=== PATIENT | female | born 1965 | race Caucasian/White ===

== ENCOUNTER 2022-01-15 11:59 | Outpatient (CLI) | payer BC, SELFPAY | END 2022-01-15 12:00 | disposition home or self-care (01) | PROVIDERS: PCP Internal Medicine; Visit Provider Obstetrics & Gynecology | DX: R68.89 Other general symptoms and signs (principal); N95.1 Menopausal and female climacteric states; I10 Essential (primary) hypertension; E78.5 Hyperlipidemia, unspecified | CPT/HCPCS: 36415; 84443 ==

== ENCOUNTER 2022-01-30 09:08 | Outpatient (CLI) | payer BC, SELFPAY ==
--- NOTE | 2022-01-30 09:15 | CRLHL7_ITS ---
For Patients: As a result of the Century Cures Act, medical imaging exams and procedure reports are released immediately into your electronic medical record. You may view this report before your referring provider. If you have questions, please contact your health care provider. BILATERAL SCREENING MAMMOGRAM WITH COMPUTER-AIDED DETECTION AND TOMOSYNTHESIS TECHNIQUE: CC and MLO views were obtained. These mammographic images have been obtained using full-field digital technique. These mammographic images were interpreted with the benefit of computer-aided detection. Breast Tomosynthesis was used in this interpretation. COMPARISON FILM: 12/30/20, 12/30/19, 07/21/18. FINDINGS: The breasts are heterogeneously dense, which may obscure small masses IMPRESSION: There is no radiographic evidence for malignancy. ASSESSMENT: BI-RADS Category 2: Benign RECOMMENDATION: Routine screening mammogram in 1 year. A lay language report of this examination will be provided to the patient. Roderick Boothe M.D. Diagnostic Radiologist [email or web address] FRANCO/Dictated by: Roderick Boothe MD @ 01/30/2022 10:21:00 AM (Electronically Signed)
== END 2022-01-30 09:09 | disposition home or self-care (01) ==
LOC: MAMMO 09:09
PROVIDERS: PCP Internal Medicine; Visit Provider Internal Medicine
DX: Z12.31 Encounter for screening mammogram for malignant neoplasm of breast (principal); R92.2 Inconclusive mammogram
CPT/HCPCS: 77063; 77067

== ENCOUNTER 2022-03-26 06:04 | Day surgery (SDC) | payer BC, SELFPAY ==
[2022-03-26] MEDS: LACTATED RINGERS 1000 ML 1,000 ML 100 ML IV (06:30)
[2022-03-26 06:38] VITALS: BMI 40.4
[2022-03-26 06:43] VITALS: BP 151/100; PULSE 58; RESP 16; TEMP 36.7; O2SAT 98
[2022-03-26] MEDS: SODIUM CHLORIDE 0.9 % (FLUSH) 10 ML SYRINGE IVF (06:54)
--- NOTE | 2022-03-26 07:19 | CRLHL7_ITS ---
For Patients: As a result of the Cures Act, medical imaging exams and procedure reports are released immediately into your electronic medical record. You may view this report before your referring provider. If you have questions, please contact your health care provider. Indication: HAMMERTOE REPAIR Technique: Two fluoroscopic images of the left foot. Fluoroscopic time 4.8 seconds IMPRESSION: Fluoroscopic guidance for 3rd toe hammertoe repair. Dictated by Roderick Boothe MD @ 03/26/2022 8:54:22 AM (Electronically Signed)
[2022-03-26] MEDS: CEFAZOLIN 1 GM in 0.9 % SODIUM CHLORIDE Mini-bag 100 ML IVPB (07:22)
[2022-03-26] MEDS: BUPIVACAINE 0.5% 30 ML INJECTION (07:32)
[2022-03-26 08:12] VITALS: BP 139/81; PULSE 73; RESP 16; TEMP 36.4; O2SAT 95
--- NOTE | 2022-03-26 08:17 | P.GSOP_ITS ---
Operative Note Date of procedure: 03/26/22 Type of Procedure: Hammertoe correction by PIPJ fusion 3rd toe left, percutaneous flexor tenotomy bilateral 4th toes Procedure Description: After discussing the risks and benefits of the procedure, the patient signed informed consent.? The operative site was marked and the patient was brought to the operating room and placed on the operating table in supine position.? Care was taken to pad the patient's pressure points.?? The patient was then given sedation by anesthesia and local anesthetic was injected into the 3rd and 4th toes left and the 4th toe right.?? The operative site was then prepped and draped in the usual sterile fashion.? A time-out was then performed. The left foot was exsanguinated and the ankle tourniquet inflated to 250 mm Hg. Transverse incision was then made over the dorsal distal interphalangeal joint 3rd toe left foot. Incision was carried through skin. Joint capsule and extensor tendon were transected at the level of the joint. Medial lateral collateral ligaments released. The cartilage and subchondral bone of the distal middle phalanx was resected with a oscillating saw and the base of the distal phalanx resected with oscillating saw. Flexor tendon was released. Wound was t horoughly irrigated with normal sterile saline. 0.054 smooth K-wire was placed in the base of the distal phalanx and driven out through the tip of the toe. Fusion site was held tightly together the pin was retrogradely placed into the middle and proximal phalanx. C-arm confirmed excellent position. K-wire was bent cut and capped with a Jergens ball. Extensor tendon subcutaneous tissue and skin were all repaired in 1 layer with 4-0 Prolene. 6100 for [place] blade was used to make a stab incision the plantar aspect of the PIPJ 4th toe left foot. Flexor tendon and plantar joint capsule released. Single 4-0 Prolene suture placed. Sterile dressings were then applied. Tourniquet was released. Normal capillary fill time returned to all digits. 6100 [place] blade was used to make stab incision to the plantar aspect the PIPJ 4th toe right. Flexor tendon and plantar joint capsule released. Single 4-0 Prolene suture placed. Sterile dressings were then applied. ? The patient was then woken and transported to the recovery area in stable condition. The patient tolerated the procedure well. She will be discharged per Anesthesia. She is given both written and verbal postoperative i nstructions. She is weight-bearing as tolerated in a postsurgical shoes. She is given Brandon for pain. She will follow-up in 2 days time. Findings: Complications: None apparent Implants: 0.054 smooth K-wire x1 Anesthesia: MAC and local Surgeon: Aj Milian DPM Estimated blood loss (mL): 1 Condition: stable Disposition: same day
--- NOTE | 2022-03-26 08:19 | W.ANESCHARGE ---
Anesthesia Charges Start Date/Time Anesthesia Start Date: 03/26/22 Anesthesia Start Time: 07:15 Stop Date/Time Anesthesia Stop Date: 03/26/22 Anesthesia Stop Time: 08:15 Summary Emergency: No
[2022-03-26 08:20] VITALS: BP 140/80; PULSE 73; RESP 16; O2SAT 95
[2022-03-26 08:30] VITALS: BP 133/80; PULSE 73; RESP 16; O2SAT 95
[2022-03-26 08:45] VITALS: BP 145/76; PULSE 73; RESP 16; O2SAT 95
--- NOTE | 2022-03-26 09:32 | W.ANESCHARGE ---
Anesthesia Charges Start Date/Time Anesthesia Start Date: 03/26/22 Anesthesia Start Time: 07:15 Stop Date/Time Anesthesia Stop Date: 03/26/22 Anesthesia Stop Time: 08:15 Summary Emergency: No
--- NOTE | 2022-03-26 11:34 | SUR.PHASEII ---
bilateral black hard sole shoes applied to feet.
== END 2022-03-26 09:00 | disposition home or self-care (01) ==
PROVIDERS: PCP Internal Medicine; Visit Provider Podiatrist
PROC: (CPT 28285; principal; 2022-03-26 07:15)
DX: M20.42 Other hammer toe(s) (acquired), left foot (principal)
CPT/HCPCS: 28285 ×3; 01480; 73630; 76000; J0690; J2250; J2704; J3010; J3490; J7120

== ENCOUNTER 2022-05-02 16:39 | Outpatient (CLI) | payer BC, SELFPAY ==
[2022-05-02 10:22] LABS: Albumin* 4.4 g/dL (3.3-5.0); Chloride* 105 mmol/L (96-114)
[2022-05-02 10:23] LABS: Potassium* 4.2 mmol/L (3.6-5.1); Sodium* 140 mmol/L (135-149)
[2022-05-02 10:25] LABS: Carbon Dioxide* 31 mmol/L (20-32); Cholesterol* 241 mg/dL (90-199); Creatinine* 0.7 mg/dL (0.5-1.5); Estimated Glomerular Filt Rate 100 ml/min; Total Protein* 7.1 g/dL (6.0-8.3)
[2022-05-02 10:26] LABS: Alanine Aminotransferase* 18 U/L (4-35); Alkaline Phosphatase* 109 U/L (40-150); Aspartate Amino Transferase* 19 U/L (12-35); Bilirubin Total* 0.5 mg/dL (0.1-1.5); Blood Urea Nitrogen* 20 mg/dL (7-30); Calcium* 9.1 mg/dL (8.4-10.6); Glucose* 99 mg/dL (60-115); Triglycerides* 210 mg/dL (40-149)
[2022-05-02 10:27] LABS: HDL Cholesterol* 60 mg/dL (>=50); LDL Cholesterol Calculated 139 mg/dL (<100)
[2022-05-02 10:36] LABS: Vitamin D 25 Hydroxy* 17 ng/mL (30-80)
== END 2022-05-02 16:40 | disposition home or self-care (01) ==
PROVIDERS: PCP Internal Medicine; Visit Provider Internal Medicine
DX: R73.03 Prediabetes (principal); E78.5 Hyperlipidemia, unspecified
CPT/HCPCS: 80053; 80061; 82306; 82728

== ENCOUNTER 2023-04-26 15:22 | Outpatient (CLI) | payer BC, SELFPAY ==
--- NOTE | 2023-04-26 15:20 | CRLHL7_ITS ---
For Patients: As a result of the Century Cures Act, medical imaging exams and procedure reports are released immediately into your electronic medical record. You may view this report before your referring provider. If you have questions, please contact your health care provider. BILATERAL SCREENING MAMMOGRAM WITH COMPUTER-AIDED DETECTION AND TOMOSYNTHESIS TECHNIQUE: CC and MLO views were obtained. These mammographic images have been obtained using full-field digital technique. These mammographic images were interpreted with the benefit of computer-aided detection. Breast Tomosynthesis was used in this interpretation. COMPARISON FILM: 01/30/22, 12/30/20, 12/30/19. FINDINGS: There are scattered areas of fibroglandular density IMPRESSION: There is no radiographic evidence for malignancy. ASSESSMENT: BI-RADS Category 2: Benign RECOMMENDATION: Routine screening mammogram in 1 year. A lay language report of this examination will be provided to the patient. Tony Forrest M.D. Diagnostic/Nuclear Medicine Radiologist [email or web address] FRANCO/Dictated by: Tony Forrest MD @ 04/30/2023 8:31:00 AM (Electronically Signed)
== END 2023-04-26 15:23 | disposition home or self-care (01) ==
LOC: MAMMO 15:25
PROVIDERS: PCP Internal Medicine; Visit Provider Internal Medicine
DX: Z12.31 Encounter for screening mammogram for malignant neoplasm of breast (principal)
CPT/HCPCS: 77063; 77067

== ENCOUNTER 2023-08-15 08:23 | Outpatient (CLI) | payer BC, SELFPAY ==
--- OUTSIDE RECORDS SUMMARY | 2023-08-15 08:26 | XMS_ITS | Clinical Summary ---
Author Name Unknown Organization [facility] Address [address] [place] [address] Care Team Providers Care Security Infrastructure Engineer Name Role Phone Cristal Dubose MD Primary Care Provider Kiel Miles PhD Unavailable [phone] Jose Alejandro Dave PA-C Unavailable [phone] Allergies Active Allergy Reactions Criticality Noted Date Comments Aspirin 10/16/2022 S/p gastric surgery 10/11/2022 Morphine Nausea Low 08/10/2020 Nsaids 10/16/2022 S/p gastric surgery 10/11/2022 Penicillins Rash Low 10/13/2018 Skin turns pink Medications Medication Sig Dispensed Refills Start Date End Date Status lisinopril-hydrochloro thiazide (PRINZIDE/ZESTORETIC) 20-12.5 MG tablet Take 1 tablet by mouth every morning 2 Active venlafaxine (EFFEXOR-XR) 150 MG 24 hr capsule Take 1 capsule by mouth every morning 0 Active FLUoxetine (PROZAC) 20 MG capsule Take 1 capsule by mouth every morning Active VITAMIN D PO Take 2,000 Int'l Units by mouth daily Active Multiple Vitamin (MULTIVITAMIN ADULT PO) Take 1 tablet by mouth every morning Active sennosides (SENOKOT) 8.6 MG tablet Take 1 tablet by mouth 2 times daily Active Cyanocobalamin (VITAMIN B12) 3000 MCG/ML LIQD Place under the tongue once a week 1/2 of a stopper Active Active Problems Problem Noted Date Diagnosed Date Class 1 obesity due to exces s calories with serious comorbidity and body mass index (BMI) of 30.0 to 30.9 in adult 02/18/2023 Last Assessment & Plan: Patient was congratulated on wt loss success thus far. Healthy habits to assist with further weight loss were discussed. 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 Labs ordered per protocol. Prediabetes 10/13/2018 Last Assessment & Plan: Last HgA1C 2018 5.6. Recheck HgA1C at 1 year. Essential hypertension 10/13/2018 Last Assessment & Plan: Continue of lisinopril/hydrochlorothiazide will see PCP who prerna discontinue. BP controlled. Premature menopause 10/13/2018 Family History Medical History Relation Comments Coronary Artery Disease Brother Obesity Brother Obesity Father Obesity Mother Relation Status Comments Brother Father Mother Social History Tobacco Use Types Packs/Day Years Used Date Smoking Tobacco: Never Smokeless Tobacco: Never Tobacco Cessation:Counseling Given: Not Answered Alcohol Use Standard Drinks/Week Comments Yes 0 (1 standard drink = 0.6 oz pur e alcohol) occassional Adolescent Education Answer Date Record ed Getting School Help Needed Not on file 01/18 Sex and Gender Information Value Date Recorded Sex Assigned at Female 04/21/2022 8:20 PM SHIP CAPTAIN Gender Identity Female 04/21/2022 8:20 PM SHIP CAPTAIN Sexual Orientation Straight 04/21/2022 8: 20 PM SHIP CAPTAIN Last Filed Vital Signs Vital Sign Reading Time Taken Comments Blood Pressure 118/76 05/07/2023 8:40 AM SHIP CAPTAIN Pulse 56 05/07/2023 8:40 AM SHIP CAPTAIN Temperature 36.8 ??C (98.2 ??F) 10/25/2022 11:50 AM C DT Respiratory Rate 16 10/25/2022 11:50 AM CDT Oxygen Saturation 100% 05/07/2023 8:40 AM SHIP CAPTAIN Inhaled Oxygen Concentration - - Weight 103.4 kg (228 lb) 05/07/2023 8:40 AM SHIP CAPTAIN Height 185.4 cm (6' 1) 05/07/2023 8:40 AM SHIP CAPTAIN Body Mass Index 30.08 05/07/2023 8:40 AM SHIP CAPTAIN Plan of Treatment Upcoming Encounters Date Type Department Care Team (Late st Contact Info) Description 10/09/2023 9:00 AM CDT Office Visit [facility] [place] [address] [place] [phone] Jose Alejandro Dave PA-C [address] [place] [id number] 10/09/2023 9:30 AM CDT Office Visit [facility] [place] [address] [place] [phone] 1, Sh Wl Diet, RD Health Maintenance Due Date Last Done Comments ADVANCE CARE PLANNING 1965 ANNUAL REVIEW OF HM ORDERS 1963 CT COLONOGRAPHY 1963 FIT 1965 FLEX SIG 1965 MAMMO SCREENING 1965 YEARLY PREVENTIVE VISIT 1963 sDNA (Cologuard) 1965 COLONOSCOPY 11/11/1973 COLORECTAL CANCER SCREENING 11/11/1973 HIV SCREENING 11/11/1978 HEPATITIS C SCREENING 11/11/1981 HEPATITIS B IMMUNIZATION (1 of 3 - 19+ 3-dose series) 11/11/1982 PAP 11/11/1984 PHQ-2 (once per calendar year) 2023 LIPID 09/17/2023 09/16/2018 GLUCOSE 10/12/2025 10/12/2022, 09/21, 09/16/2018 DTAP/TDAP/TD IMMUNIZATION (4 - Td or Tdap) 11/01/2026 11/01/2016, 01/01/2016, 07/03/2006, Additional history exists Pneumococcal Vaccine: Pediatrics (0 to 5 Years) and At-Risk Patients (6 to 64 Years) Aged Out 11/28/2017 No longer eligible based on patient's age to complete this topic ZOSTER IMMUNIZATION Completed 08/19/2018, 8 INFLUENZA VACCINE Completed 02/20/2023, , 01/26/2022, Additional history exists COVID-19 Vaccine Completed 04/25/2023, , 03/07/2021, Additional history exists HPV IMMUNIZATION Aged Out No longer e ligible based on patient's age to complete this topic IPV IMMUNIZATION Aged Out No longer e ligible based on patient's age to complete this topic MENINGITIS IMMUNIZATION Aged Out No l onger eligible based on patient's age to complete this topic RSV MONOCLONAL ANTIBODY Aged Out No l onger eligible based on patient's age to complete this topic Procedures Procedure Name Priority Date/Time Associated Diagnosis Comments GLUCOSE Routine 10/12/2022 7:31 AM CDT LIPID PROFILE Routine 09/16/2018 from Last 3 Months or Most Recently Relevant to Health Maintenance Results * Glucose (10/12/2022 7:31 AM CDT) Glucose 99 70 - 99 mg/dL 10/12/2022 8:17 AM CDT LABORATORY Blood STRUCTURE OF RIGHT UPPER LIMB / Unknown Venipuncture / Unknown 10/12/2022 7:31 AM CDT 10/12/2022 7:45 AM CDT Kris Vail MD LAB - BLOOD ORDERABL ES LABORATORY [facility] Acute Care Lab [address] floor, [address] [place] [address], [facility] [phone] * (ABNORMAL) Lipid Profile (09/16/2018) Cholesterol 259(A) 90 - 200 MG/DL [facility] Triglycerides 167 40 - 197 MG/DL [facility] HDL Cholesterol 68 >=50 mg/dL [facility] LDL Cholesterol Calculated 158(H) <100 mg/dL [facility] Blood specimen (specimen) 09/16/2018 Narrative [facility] - 09/16/2018 LAB RESULTS [place] Provider Outside LAB - BLOOD ORDERABL ES [facility] [address] [place] [address], [facility] [phone] from Last 3 Months or Most Recently Relevant to Health Maintenance Advance Directives For more information, please contact: [phone] * Full Code (Latest Code Status on File) Date Activated Date Inactivated Comments 10/11/2022 11:26 AM 10/12/2022 1:34 PM All basic a nd advanced life-sustaining interventions are performed as appropriate Question Answer Comments Code status determined by: Unable to dis cuss and no AD/POLST on file; continue PREVIOUSLY ORDERED code status Care Teams Security Infrastructure Engineer Relationship Specialty Start Date End Date Cristal Dubose MD [facility][NOTE 3] [address] [place] [address] PCP - General Internal Medicine 10/13/18 Kiel Miles, PhD [employer] [address] [place] [address] Assigned Behavioral Health Provider 05/19/22 Jose Alejandro Dave PA-C [address] [place] [address] Assigned Surgical Provider 05/16/23
--- OUTSIDE RECORDS SUMMARY | 2023-08-15 08:26 | XMS_ITS | Referral Summary ---
Author Name Unknown Organization [facility] Address [address] [place] [address] Care Team Providers Care Satellite Dish Installer Name Role Phone Cristal Dubose MD Primary Care Provider Kiel Miles PhD Unavailable [phone] Jose Alejandro Dave PA-C Unavailable [phone] Allergies Active Allergy Reactions Criticality Noted Date [...] prerna discontinue. BP controlled. Premature menopause 10/13/2018 Social History Tobacco Use Types Packs/Day Years [...] Sex Assigned at Female 04/21/2022 8:20 PM POWER PROJECT MANAGER Gender Identity Female 04/21/2022 8:20 PM POWER PROJECT MANAGER Sexual Orientation Straight 04/21/2022 8: 20 PM POWER PROJECT MANAGER Last Filed Vital Signs Vital Sign Reading Time Taken Comments Blood Pressure 118/76 05/07/2023 8:40 AM POWER PROJECT MANAGER Pulse 56 05/07/2023 8:40 AM POWER PROJECT MANAGER Temperature 36.8 ??C (98.2 ??F) 10/25/2022 11:50 AM C DT Respiratory Rate 16 10/25/2022 11:50 AM CDT Oxygen Saturation 100% 05/07/2023 8:40 AM POWER PROJECT MANAGER Inhaled Oxygen Concentration - - Weight 103.4 kg (228 lb) 05/07/2023 8:40 AM POWER PROJECT MANAGER Height 185.4 cm (6' 1) 05/07/2023 8:40 AM POWER PROJECT MANAGER Body Mass Index 30.08 05/07/2023 8:40 AM POWER PROJECT MANAGER Plan of Treatment Upcoming Encounters Date Type Department Care Team (Late st Contact Info) Description 10/09/2023 9:00 AM CDT Office Visit [facility] [place] [address] [place] [phone] Jose Alejandro Dave PA-C [address] [place] [address] 10/09/2023 9:30 AM CDT Office Visit [facility] [place] [address] [place] [phone] 1, Sh Wl Diet, RD Procedures Procedure Name Priority Date/Time Associated Diagnosis [...] MD LAB - BLOOD ORDERABL ES LABORATORY [facility] Acute Care Lab [address] [place] floor, [address] [place] [phone], [facility] [phone] * (ABNORMAL) Lipid Profile (09/16/2018) Cholesterol 259(A) 90 - 200 MG/DL [facility] Triglycerides 167 40 - 197 MG/DL [facility] HDL Cholesterol 68 >=50 mg/dL [facility] LDL Cholesterol Calculated 158(H) <100 mg/dL [facility] Blood specimen (specimen) 09/16/2018 Narrative [facility] - 09/16/2018 LAB RESULTS [place] Provider Outside LAB - BLOOD ORDERABL ES [facility] [address] [place] [address], [facility] [phone] from Last 3 Months or Most Recently Relevant to Health Maintenance Advance Directives For more information, please contact: [phone] * Full Code (Latest Code Status on File) Date Activated Date Inactivated Comments 10/11/2022 11:26 AM 10/12/2022 1:34 PM All basic a nd advanced life-sustaining interventions are performed as appropriate Question Answer Comments Code status determined by: Unable to dis cuss and no AD/POLST on file; continue PREVIOUSLY ORDERED code status Care Teams Satellite Dish Installer Relationship Specialty Start Date End Date Cristal Dubose MD [facility] [address] [place] [address] PCP - General Internal Medicine 10/13/18 Kiel Miles, PhD [employer] [facility] [address] [place] [address] Assigned Behavioral Health Provider 05/19/22 Jose Alejandro Dave PA-C [address] [place] [address] Assigned Surgical Provider 05/16/23
--- OUTSIDE RECORDS SUMMARY | 2023-08-15 08:26 | XMS_ITS | Encounter Summary ---
Author Name Unknown Organization [facility] Address [id number] [place] [address] Care Team Providers Care Director Critical Care Name Role Phone Cristal Dubose MD Primary Care Provider [phone] Kiel Miles PhD Unavailable [phone] Christie Kelly PA-C Unavailable [phone] Encounter Details Date Type Department Care Team (Late st Contact Info) Description 05/07/2023 4:20 PM SOCIAL SECURITY BENEFITS INTERVIEWER Lab [facility] [address] [facility] [place] [phone] Bariatric surgery status; Postsurgical malabsorption Social History Tobacco Use Types Packs/Day Years Used Date Smoking Tobacco: Never Smokeless Tobacco: Never Alcohol Use Standard Drinks/Week Comments Yes 0 (1 standard drink = 0.6 oz pur e alcohol) occassional Adolescent Education Answer Date Record ed Getting School Help Needed Not on file 01/18 Sex and Gender Information Value Date Recorded Sex Assigned at Female 04/21/2022 8:20 PM SOCIAL SECURITY BENEFITS INTERVIEWER Gender Identity Female 04/21/2022 8:20 PM SOCIAL SECURITY BENEFITS INTERVIEWER Sexual Orientation Straight 04/21/2022 8: 20 PM SOCIAL SECURITY BENEFITS INTERVIEWER documented as of this encounter Plan of Treatment Upcoming Encounters Date Type Department Care Team (Late st Contact Info) Description 10/09/2023 9:00 AM CDT Office Visit [facility] [place] [address] [place] [phone] Jose Alejandro Dave PA-C [address] [facility] [place] [address] 10/09/2023 9:30 AM CDT Office Visit [facility] [place] [address] [place] [phone] 1, Sh Wl Diet, RD documented as of this encounter Procedures Procedure Name Priority Date/Time Associated Diagnosis Comments VITAMIN D DEFICIENCY SCREENING Routine 05/07/2023 3:03 PM SOCIAL SECURITY BENEFITS INTERVIEWER Bariatric surgery status Postsurgical malabsorption VITAMIN A Routine 05/07/2023 3:03 PM SOCIAL SECURITY BENEFITS INTERVIEWER Postsurgical malabsorption PARATHYROID HORMONE INTACT Routine 05/07/2023 3:03 PM SOCIAL SECURITY BENEFITS INTERVIEWER Bariatric surgery status Postsurgical malabsorption IRON AND IRON BINDING CAPACITY Routine 05/07/2023 3:03 PM SOCIAL SECURITY BENEFITS INTERVIEWER Bariatric surgery status Postsurgical malabsorption FERRITIN Routine 05/07/2023 3:03 PM SOCIAL SECURITY BENEFITS INTERVIEWER Bariatric surgery status Postsurgical malabsorption VITAMIN B12 Routine 05/07/2023 3:03 PM SOCIAL SECURITY BENEFITS INTERVIEWER Bariatric surgery status Postsurgical malabsorption CBC WITH PLATELETS Routine 05/07/2023 3: 03 PM SOCIAL SECURITY BENEFITS INTERVIEWER Bariatric surgery status Postsurgical malabsorption documented in this encounter Results * Vitamin A (05/07/2023 3:03 PM SOCIAL SECURITY BENEFITS INTERVIEWER) Vitamin A 0.70 0.30 - 1.20 mg/L 05/10/2023 9:13 AM SOCIAL SECURITY BENEFITS INTERVIEWER [facility] Retinol Palmitate 0.04 0.00 - 0.10 mg/L 05/10/2023 9:13 AM SOCIAL SECURITY BENEFITS INTERVIEWER [facility] Vitamin A Interp Normal 05/10/19 24 9:13 AM SOCIAL SECURITY BENEFITS INTERVIEWER [facility] Comment: This test was developed and its performance characteristics determined by [facility]. It has not been cleared or approved by the US Food and Drug Administration. This test was performed in a CLIA certified laboratory and is intended for clinical purposes. Performed By: [facility] [address] [place] [address] Stem Threshing Machine Operator: Oni Atwood MD, PhD CLIA Number: [id number] Blood STRUCTURE OF RIGHT UPPER LIMB / Unknown Venipuncture / Unknown 05/07/2023 3:03 PM SOCIAL SECURITY BENEFITS INTERVIEWER 05/07/2023 3:04 PM SOCIAL SECURITY BENEFITS INTERVIEWER Jose Alejandro Dave PA-C LAB - BLOOD ORD ERABLES [facility] [address] [place] [address], [facility] [phone] * Ferritin (05/07/2023 3:03 PM SOCIAL SECURITY BENEFITS INTERVIEWER) Ferritin 104 11 - 328 ng/mL 05/08/2023 9:36 AM SOCIAL SECURITY BENEFITS INTERVIEWER [facility] Blood STRUCTURE OF RIGHT UPPER LIMB / Unknown Venipuncture / Unknown 05/07/2023 3:03 PM SOCIAL SECURITY BENEFITS INTERVIEWER 05/07/2023 3:04 PM SOCIAL SECURITY BENEFITS INTERVIEWER Jose Alejandro Dave PA-C LAB - BLOOD ORD ERABLES LABORATORY [facility] [place] [facility] [address], [address] [phone], [facility] [phone] * Iron and Iron Binding Capacity (05/07/2023 3:03 PM SOCIAL SECURITY BENEFITS INTERVIEWER) Iron 84 37 - 145 ug/dL 05/07/2023 3:58 PM SOCIAL SECURITY BENEFITS INTERVIEWER LABORATORY Iron Binding Capacity 254 240 - 430 ug/dL 05/07/2023 3:58 PM SOCIAL SECURITY BENEFITS INTERVIEWER LABORATORY Iron Sat Index 33 15 - 46 % 05/07/2023 3:58 PM SOCIAL SECURITY BENEFITS INTERVIEWER LABORATORY Blood STRUCTURE OF RIGHT UPPER LIMB / Unknown Venipuncture / Unknown 05/07/2023 3:03 PM SOCIAL SECURITY BENEFITS INTERVIEWER 05/07/2023 3:04 PM SOCIAL SECURITY BENEFITS INTERVIEWER Jose Alejandro Dave PA-C LAB - BLOOD ORD ERABLES LABORATORY [facility] [address], [address] [place] [address], [facility] [phone] * Parathyroid Hormone Intact (05/07/2023 3:03 PM SOCIAL SECURITY BENEFITS INTERVIEWER) Parathyroid Hormone Intact 47 15 - 65 pg/mL 05/07/2023 3:53 PM SOCIAL SECURITY BENEFITS INTERVIEWER LABORATORY Blood STRUCTURE OF RIGHT UPPER LIMB / Unknown Venipuncture / Unknown 05/07/2023 3:03 PM SOCIAL SECURITY BENEFITS INTERVIEWER 05/07/2023 3:04 PM SOCIAL SECURITY BENEFITS INTERVIEWER Narrative LABORATORY - 05/07/2023 3:53 PM SOCIAL SECURITY BENEFITS INTERVIEWER This result was obtained with the Beny Elecsys PTH STAT assay. This reference range differs from PTH assays used in other [facility] laboratories. Jose Alejandro Dave PA-C LAB - BLOOD ORD ERAJOVITA Performing Organization Address City/[facility] [place] [facility]/ZIP Co de Phone Number LABORATORY [facility] [address], [address] [place] [address], [facility] [phone] * Vitamin D Screen (05/07/2023 3:03 PM SOCIAL SECURITY BENEFITS INTERVIEWER) Vitamin D, Total (25-Hydroxy) 46 20 - 50 ng/mL 05/08/2023 9:27 PM SOCIAL SECURITY BENEFITS INTERVIEWER [facility] Comment:optimum levels Blood STRUCTURE OF RIGHT UPPER LIMB / Unknown Venipuncture / Unknown 05/07/2023 3:03 PM SOCIAL SECURITY BENEFITS INTERVIEWER 05/07/2023 3:04 PM SOCIAL SECURITY BENEFITS INTERVIEWER Narrative LABORATORY - 05/08/2023 9:27 PM SOCIAL SECURITY BENEFITS INTERVIEWER Season, race, dietary intake, and treatment affect the concentration of 87-mulcnzn-Goocghs D. Values may decrease during winter months and increase during summer months. Vitamin D determination is routinely performed by an immunoassay specific for 25 hydroxyvitamin D3. ??If an individual is on vitamin D2(ergocalciferol) supplementation, please specify 25 OH vitamin D2 and D3 level determination by LCMSMS test VITD23. Jose Alejandro Dave PA-C LAB - BLOOD ORD ERABLES U LABORATORY [facility] [place] [facility] [address], [address] [place] [phone], [facility] [phone] * (ABNORMAL) Vitamin B12 (05/07/2023 3:03 PM SOCIAL SECURITY BENEFITS INTERVIEWER) [facility] Vitamin B12 1,661(H) 232 - 1,245 pg/mL 05/08/2023 12:50 PM SOCIAL SECURITY BENEFITS INTERVIEWER [facility] Blood STRUCTURE OF RIGHT UPPER LIMB / Unknown Venipuncture / Unknown 05/07/2023 3:03 PM SOCIAL SECURITY BENEFITS INTERVIEWER 05/07/2023 3:04 PM SOCIAL SECURITY BENEFITS INTERVIEWER Jose Alejandro Dave PA-C LAB - BLOOD ORD ERABLES Performing Organization Address [facility] [place] [facility]/ZIP Co de Phone Number LABORATORY [facility] [place] [facility] [address], [address] [place] [phone], [facility] [phone] * CBC with platelets (05/07/2023 3:03 PM SOCIAL SECURITY BENEFITS INTERVIEWER) [facility] WBC Count 8.3 4.0 - 11.0 10e3/uL 05/07/2023 3:23 PM SOCIAL SECURITY BENEFITS INTERVIEWER LABORATORY RBC Count 4.31 3.80 - 5.20 10e6/uL 05/07/2023 3:23 PM SOCIAL SECURITY BENEFITS INTERVIEWER LABORATORY Hemoglobin 13.8 11.7 - 15.7 g/dL 05/07/2023 3:23 PM SOCIAL SECURITY BENEFITS INTERVIEWER LABORATORY Hematocrit 40.3 35.0 - 47.0 % 05/07/2023 3:23 PM SOCIAL SECURITY BENEFITS INTERVIEWER LABORATORY MCV 94 78 - 100 fL 05/07/2023 3:23 PM SOCIAL SECURITY BENEFITS INTERVIEWER LABORATORY MCH 32.0 26.5 - 33.0 pg 05/07/2023 3:23 PM SOCIAL SECURITY BENEFITS INTERVIEWER LABORATORY MCHC 34.2 31.5 - 36.5 g/dL 05/07/2023 3:23 PM SOCIAL SECURITY BENEFITS INTERVIEWER LABORATORY RDW 11.9 10.0 - 15.0 % 05/07/2023 3:23 PM SOCIAL SECURITY BENEFITS INTERVIEWER LABORATORY Platelet Count 291 150 - 450 10e3/uL 05/07/2023 3:23 PM SOCIAL SECURITY BENEFITS INTERVIEWER LABORATORY Blood STRUCTURE OF RIGHT UPPER LIMB / Unknown Venipuncture / Unknown 05/07/2023 3:03 PM SOCIAL SECURITY BENEFITS INTERVIEWER 05/07/2023 3:04 PM SOCIAL SECURITY BENEFITS INTERVIEWER Jose Alejandro Dave PA-C LAB - BLOOD ORD ERABLES LABORATORY [facility] [address], [address] [place] [phone], [facility] [phone] documented in this encounter Visit Diagnoses Diagnosis Bariatric surgery status 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 documented in this encounter Care Teams Director Critical Care Relationship Specialty Start Date End Date Cristal Dubose MD [facility] [address] [place] [address] PCP - General Internal Medicine 10/13/18 Kiel Miles, PhD GRAD[employer] [facility] [employer] [facility] [address] [place], [place] [address] Assigned Behavioral Health Provider 05/19/22 Christie Kelly PA-C [address] [place] [address] Assigned Surgical Provider 02/23/23 05/15/23 documented as of this encounter
--- OUTSIDE RECORDS SUMMARY | 2023-08-15 08:26 | XMS_ITS | Encounter Summary ---
Author Name Unknown Organization [place] Address [address] [place] [address] Care Team Providers Care Risk Control Manager Name Role Phone Cristal Dubose MD Primary Care Provider Kiel Miles PhD Unavailable [phone] Christie Kelly PA-C Unavailable [phone] Encounter Details Date Type Department Care Team (Latest Contact Info) Description 05/07/2023 2:00 PM VOLLEYBALL PLAYER Office Visit [facility] [address] [place] [address] Bariatric surgery status (Primary Dx); Class 1 obesity due to excess calories with serious comorbidity and body mass index (BMI) of 30.0 to 30.9 in adult; Postsurgical malabsorption Social History Tobacco Use Types Packs/Day Years Used Date Smoking Tobacco: Never Smokeless Tobacco: Never Alcohol Use Standard Drinks/Week Comments Yes 0 (1 standard drink = 0.6 oz pur e alcohol) occassional Adolescent Education Answer Date Record ed Getting School Help Needed Not on file 01/18 Sex and Gender Information Value Date Recorded Sex Assigned at Female 04/21/2022 8:20 PM VOLLEYBALL PLAYER Gender Identity Female 04/21/2022 8:20 PM VOLLEYBALL PLAYER Sexual Orientation Straight 04/21/2022 8: 20 PM VOLLEYBALL PLAYER documented as of this encounter Patient Instructions * Patient Instructions* Farshad Dimas RD, LD - 05/07/2023 2:00 PM VOLLEYBALL PLAYER [place]- It was great to visit with you and learn about your progress. Congratulation on the weight you havelost so far! Below are the goals we discussed. GOALS: Gradually increase fiber to 10-15 grams per day Eat breakfast daily Aim for 75-100 grams of protein /day (1-1.3 g/ kg IBW) Switch to decaf coffee or decaf tea Increase calcium (250 mg ) 3X per day Thanks! Frashad Dimas RD, ADELA [facility]YB[facility]ER documented in this encounter Progress Notes * Farshad Dimas RD, LD - 05/07/2023 2:00 PM CST NUTRITION POST OP APPOINTMENT DATE OF VISIT: May 05, 2023 Teresa Mo Jeovannyjeremy 1965 female [id number] 57 year old ASSESSMENT: REASON FOR VISIT: Teresa is a 57 year old year old female presents today for 6 month PO nutrition follow-up appointment. Patient is accompanied by self. DIAGNOSIS: Status post gastric sleeve surgery. Obesity Grade I BMI 30-34.9 ANTHROPOMETRICS: Initial Weight: 299.2 lb Height: 6'1 Current Weight: 228 lb BMI: 30.08 kg/(m^2). VITAMINS AND MINERALS: 1 Multivitamin with Minerals (Bariatric Pal One a Day with 18 mg iron- HS) 250 mg Calcium With Vitamin D - TID - AM, lunch, dinner 5000 mcg Vitamin B-12 sublingual - c2z-yaxt be stopping based on labs Not getting periods Multivitamin has adequate thiamine and vitamin D NUTRITION HISTORY: Breakfast: recently skipping most days or protein smoothie with cottage cheese, 1/2 banana, spinach Lunch: turkey/ cheese roll up, apple, 1/2 slice toast Supper: chicken, rice, lettuce salad Snacks: 2 X per day- 1 handful almonds, cheese/ crackers, more sweets in January-February Fluids consumed: 60 -100 oz water or enhanced water, protein smoothie, skim or 1% milk, Star bucks cold brew + splenda Consuming liquid calories: Yes Protein intake: 50-60 grams/day Tolerate regular texture food: Yes Any foods not tolerated details: Yes If any food not tolerated: spicy/ Moroccan food, rice Portion size: 1 cup or more Take 20-30 minutes to consume each meal: Yes Eat protein foods first: Yes Fluids and meals separate by at least 30 minutes: Yes Chew foods thoroughly: Yes Tolerating diet: Yes Drinking high protein supplements: No Consuming snacks per day: 2 Additional Information: Mother in December and was struggling with emotional eating.She feels like emotional eating is improving. Will be going to [place] for 1 month and plans to focus on her health. Taking Senna for the past week- having 1 stool 2-3 days. Patient was hoping to see her surgeon so she could thank him. Offered to send staff message to DR. Vail. PHYSICAL ACTIVITY: Type: walking Frequency (days per week): 1-2X per week Duration (min): 45 DIAGNOSIS: Previous Nutrition Diagnosis: Altered gastrointestinal function related to alteration in gastrointestinal structure as evidenced by history of gastric sleeve surgery.- no change Previous goals: Aim for 1 cup of food with 3 food groups-not met Avoid snacking/grazing-not met Add in strength training-not met Current Nutrition Diagnosis: Altered gastrointestinal function related to alteration in gastrointestinal structure as evidenced by history of gastric sleeve surgery. INTERVENTION: Nutrition Prescription: Eat 3 meals a day at regular intervals. Consume 60-90 grams of protein daily. Follow post-surgical vitamin and mineral protocol. Assessed learning needs and learning preferences. Reviewed and provided High Fiber MTN modified forweight loss surgery. GOALS: Gradually increase fiber to 10-15 grams per day Eat breakfast daily Aim for 75-100 grams of protein /day (1-1.3 g/ kg IBW) Switch to decaf coffee or decaf tea Increase calcium (250 mg ) 3X per day Implementation: Discussed progress toward previous goals; reinforced importance of following bariatric lifestyle changes. NUTRITION MONITORING AND EVALUATION: Anticipated compliance: fair-good Verbalized good understanding. Follow up: Patient to follow up in 6 months. TIME SPENT WITH PATIENT: [address], LD [facility] EYBALL PLAYER documented in this encounter Plan of Treatment Upcoming Encounters Date Type Department Care Team (Late st Contact Info) Description 10/09/2023 9:00 AM CDT Office Visit [facility] [place] [address] [place] [phone] Jose Alejandro Dave PA-C [address] [place] [address] 10/09/2023 9:30 AM CDT Office Visit [facility] [place] [address] [place] [phone] 1, Sh Wl Diet, RD documented as of this encounter Visit Diagnoses Diagnosis Bariatric surgery status- Primary Class 1 obesity due to excess calories with serious comorbidity and body mass index (BMI) of 30.0 to 30.9 in adult 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 documented in this encounter Care Teams Risk Control Manager Relationship Specialty Start Date End Date Cristal Dubose MD [facility] [address] [place] [address] PCP - General Internal Medicine 10/13/18 Kiel Miles, PhD [employer] AND [employer] [facility] [address] [place] [address] Assigned Behavioral Health Provider 05/19/22 Christie Kelly PA-C [address] [address] Assigned Surgical Provider 02/23/23 05/15/23 documented as of this encounter
--- OUTSIDE RECORDS SUMMARY | 2023-08-15 08:26 | XMS_ITS | Encounter Summary ---
Author Name Unknown Organization [place] Address [facility] [place] [address] Care Team Providers Care E Commerce Analyst Name Role Phone Cristal Dubose MD Primary Care Provider Kiel Miles PhD Unavailable [phone] Christie Kelly PA-C Unavailable [phone] Reason for Visit * Reason Comments RECHECK RF Encounter Details Date Type Department Care Team (Latest Contact Info) Description 05/07/2023 1:30 PM FRYER LINE HELPER Office Visit [facility] [address] [place] [phone] Jose Alejandro Dave PA-C [address] [facility] [place] [id number] Bariatric surgery status (Primary Dx); Class 1 [...] Sex Assigned at Female 04/21/2022 8:20 PM FRYER LINE HELPER Gender Identity Female 04/21/2022 8:20 PM FRYER LINE HELPER Sexual Orientation Straight 04/21/2022 8: 20 PM FRYER LINE HELPER documented as of this encounter Last Filed Vital Signs Vital Sign Reading Time Taken Comments Blood Pressure 118/76 05/07/2023 8:40 AM FRYER LINE HELPER Pulse 56 05/07/2023 8:40 AM FRYER LINE HELPER Temperature - - Respiratory Rate - - Oxygen Saturation 100% 05/07/2023 8:40 AM FRYER LINE HELPER Inhaled Oxygen Concentration - - Weight 103.4 kg (228 lb) 05/07/2023 8:40 AM FRYER LINE HELPER Height 185.4 cm (6' 1) 05/07/2023 8:40 AM FRYER LINE HELPER Body Mass Index 30.08 05/07/2023 8:40 AM FRYER LINE HELPER documented in this encounter Patient Instructions * Patient Instructions* Jose Alejandro Dave PA-C - 05/07/2023 1:30 PM FRYER LINE HELPER To ensure the quality you may receive a patient satisfaction survey. The greatest compliment you can give is Likely to Recommend Nice to talk with you today. Thank you for allowing me the privilege of caring for you. Below is the plan discussed.- . Jose Alejandro Dave PA-C Plan: Labs ordered. Call [phone] to schedule. Continue your bariatric vitamins FOLLOW-UP: Call [phone] to schedule next visit. Bariatric Post Op Guidelines General: To avoid marginal ulcers avoid all forms of tobacco, alcohol in excess, caffeine, and NSAIDS Exercise is savage for weight loss and weight maintenance. Aim for 30-60 minutes of physical activity most days. Include cardiovascular and strength training. Continue lifelong vitamins supplementation and annual lab follow up. All patients should supplement with the following bariatric postoperative vitamins: 2 Complete multivitamins with minerals (at different times than calcium) Vitamin D 5000 Int Units/125 mg daily Calcium 600 mg twice daily or 500 mg three times daily Vitamin B12: 500 mcg sl daily or 1000 mcg Inj monthly B complex daily or Thiamine 100 mg weekly 1 Iron/Vit C. Daily for females who menstruate and/or as directed The bariatric team should be aware and evaluate all GI symptoms which can be a sign of complications. Inability to tolerate textured solid food (chicken, steak, fish) may need to be evaluated by endoscopy. There is a 10% increase of Alcohol Use Disorder in patients with bariatric surgery. Most often occurring around 2 years post op. Call if you feel alcohol is interfering in your daily life. We can help. Follow up annually lifelong. Obesity is a chronic disease. Weight gain can be expected. The goal offollow-up visits is to ensure adequate vitamin and protein absorption, evaluate food intake behavior, review exercise/activity level, and assist with weight regain. Nutritional: Eat 3 meals per day (No snacks between meals.) Do not skip meals. This can cause overeating at the next meal and will prevent adequate protein andnutritional intake. Aim for 60-80 grams of protein per day. Always eat your protein first. This assists with optimal nutrition and helps you stay full longer. Eat your protein first, and then follow with fiber. Add fiber by including fruits, vegetables, whole grains, and beans. Portions should be about 1 cup per meal. Use measuring cups to be accurate. Continue to use saucer/salad plates, /toddler silverware to keep portion sizes small and takesmall bites. Eat S-L-O-W-L-Y to make each meal last 20-30 minutes. Always stop eating when satisfied. Aim for 64 oz. of calorie-free fluids daily. Avoid drinking 30 min before, during, and 30 min after meal Avoid high sugar and high fat foods to prevent high calorie intake. This will reduce your rate of weight loss and can cause weight regain. Check nutrition labels for less than 10 grams of sugar and less than 10 grams of fat per serving. R LINE HELPER documented in this encounter Progress Notes * Jose Alejandro Dave PA-C - 05/07/2023 1:30 PM CST Return Bariatric Surgery Note RE: Teresa Bingham MR#: [id number] : 1965 VISIT DATE: May 07, 2023 Dear Cristal Dubose, I had the pleasure of seeing your patient, Teresa Bingham, in my post-bariatric surgery assessment clinic. CHIEF COMPLAINT: Post-bariatric surgery follow-up. Overall doing well. Happy with weight loss. Mother passed a few months ago. Will be scheduling with a grief counselor. HISTORY OF PRESENT ILLNESS: 05/06/2023 4:32 PM Questions Regarding Prior Weight Loss Surgery Reviewed With Patient I had the following weight loss procedure Sleeve Gastrectomy What year was your surgery? 2022 How has your weight changed since your last visit? I have lost weight Do you currently have any of the following None of the above Do you have any concerns today? Should I have new blood work done today? VITAMINS AND MINERALS: 1 Bariatric Pal MVI 750 mg calcium - TID (did not realize serving size was 2) 3000 International units Vitamin D in Bariatric vitamin 5000 mcg Vitamin B-12 1 time per week Not getting periods Weight History: 05/06/2023 4:32 PM -- What is your highest lifetime weight? 304 What is your lowest weight since surgery? (In pounds) 233 Initial Weight (lbs): 302 lbs Weight: 228 lb (103.4 kg) Last Visits Weight: 243 lb (110.2 kg) Cumulative weight loss (lbs): 74 Weight Loss Percentage: 24.5% 05/06/2023 4:32 PM Questions Regarding Co-Morbidities and Health Concerns Reviewed With Patient Pre-diabetes Never Diabetes II Never High Blood Pressure Improved High cholesterol Never Heartburn/Reflux Never Sleep apnea Never PCOS Never Back pain Never Joint pain Improved Lower leg swelling Never 05/06/2023 4:32 PM Eating Habits How many meals do you eat per day? 3 Do you snack between meals? Yes How much food are you eating at each meal? 1/2 cup to 1 cup Are you able to separate your meals and liquids by at least 30 minutes? Yes Are you able to avoid liquid calories? Yes 05/06/2023 4:32 PM Exercise Questions Reviewed With Patient How often do you exercise? 1 to 2 times per week What is the duration of your exercise (in minutes)? 45 Minutes What types of exercise do you do? walking What keeps you from being more active? I should be more active but I just have not gotten around toit Walking more than normal Social History: 05/06/2023 4:32 PM -- Are you smoking? No Are you drinking alcohol? No Medications: Current Outpatient Medications Medication Cyanocobalamin (VITAMIN B12) 3000 MCG/ML LIQD FLUoxetine (PROZAC) 20 MG capsule lisinopril-hydrochlorothiazide (PRINZIDE/ZESTORETIC) 20-12.5 MG tablet sennosides (SENOKOT) 8.6 MG tablet venlafaxine (EFFEXOR-XR) 150 MG 24 hr capsule Multiple Vitamin (MULTIVITAMIN ADULT PO) VITAMIN D PO No current facility-administered medications for this visit. 05/06/2023 4:32 PM -- Do you avoid NSAIDs such as (Ibuprofen, Aleve, Naproxen, Advil)? Yes Drinks coffee daily ROS: GI: 05/06/2023 4:32 PM -- Vomiting No Diarrhea No Constipation Yes Swallowing trouble No Abdominal pain No Heartburn No Gets 60-100 oz water daily Skin: 05/06/2023 4:32 PM BAR RBS ROS - SKIN Rash in skin folds No Psych: 05/06/2023 4:32 PM -- Depression Yes Anxiety Yes : 05/06/2023 4:32 PM BAR RBS ROS - Female only None of the above Stress urinary incontinence No LABS/IMAGING/MEDICAL RECORDS REVIEW: [facility] PHYSICAL EXAMINATION: BP 118/76 Pulse 56 Ht 6' 1 (1.854 m) Wt 228 lb (103.4 kg) LMP (LMP Unknown) SpO2 100% BMI 30.08 kg/m?? GENERAL: Alert and oriented x3. NAD HEART: No murmurs, rubs or gallops, Regular rate and rhythm LUNGS: Breathing unlabored. Lung sounds clear to auscultation bilaterally ABDOMEN: No hernias, Incisions well healed, soft and nontender EXTREMITIES: No LE edema bilaterally SKIN: Warm and dry. No intertriginous irritation or rash ASSESSMENT AND PLAN: 1. 6 months status laparoscopic gastric sleeve We reviewed the important post op bariatric recommendations: eating 3 meals daily eating protein first, getting >60gm protein daily eating slowly, chewing food well avoiding/limiting calorie containing beverages avoiding fluids 30 minutes before, during, and after meals limiting restaurant or cafeteria eating to twice a week or less Pt reminded to avoid marginal ulcers she should avoid tobacco at all, alcohol in excess, caffeine, and NSAIDS (unless indicated for cardioprotection or othewise and opposed by a PPI). Pt encouraged to establish and maintain a consistent physical activity routine, 6-8 hours of restorative sleep each night and optimal stress management. Pt counseled on the importance of life long vitamin supplementation and life long follow up. 2. Morbid Obesity resolved current BMI: Body mass index is 30.08 kg/m??. 3. Post surgical malabsorption: Labs ordered per protocol. - stop vitamin B12 Follow food plan per dietitian recommendations. Continue taking recommended post-op vitamins. 4. Return to clinic in 6 month for annual with provider and diet. Sincerely, Jose Alejandro Dave PA-C 25 minutes spent on the date of the encounter doing chart review, review of test results, patient visit and documentation R LINE HELPER documented in this encounter Plan of Treatment Upcoming Encounters Date Type Department Care Team (Late st Contact Info) Description 10/09/2023 9:00 AM CDT Office Visit [facility] [place] [address] [facility] [address] [place] [phone] Jose Alejandro Dave PA-C [address] [place] [id number] 10/09/2023 9:30 AM CDT Office Visit [facility] [place] [address] [facility] [address] [place] [phone] 1, Sh Wl Diet, RD documented as of this encounter Results * Vitamin A (05/07/2023 3:03 PM FRYER LINE HELPER) Vitamin A 0.70 0.30 - 1.20 mg/L 05/10/2023 9:13 AM FRYER LINE HELPER [facility] Retinol Palmitate 0.04 0.00 - 0.10 mg/L 05/10/2023 9:13 AM FRYER LINE HELPER [facility] Vitamin A Interp Normal 05/10/19 24 9:13 AM FRYER LINE HELPER [facility] Comment: This test was developed and its performance characteristics determined by [facility]. It has not been cleared or approved by the [place] Food and Drug Administration. This test was performed in a CLIA certified laboratory and is intended for clinical purposes. Performed By: [facility] [address] [place] [id number] [employer] Teacher: Oni Atwood MD, PhD CLIA Number: [id number] Blood STRUCTURE OF RIGHT UPPER LIMB / Unknown Venipuncture / Unknown 05/07/2023 3:03 PM FRYER LINE HELPER 05/07/2023 3:04 PM FRYER LINE HELPER Jose Alejandro Dave PA-C LAB - BLOOD ORD ERABLES [facility] [address] [place] [address], [place] [phone] * Ferritin (05/07/2023 3:03 PM FRYER LINE HELPER) Ferritin 104 11 - 328 ng/mL 05/08/2023 9:36 AM FRYER LINE HELPER [facility] Blood STRUCTURE OF RIGHT UPPER LIMB / Unknown Venipuncture / Unknown 05/07/2023 3:03 PM FRYER LINE HELPER 05/07/2023 3:04 PM FRYER LINE HELPER Jose Alejandro Dave PA-C LAB - BLOOD ORD ERABLES [facility] [address] [facility] [place] [address], [place] [phone] * Iron and Iron Binding Capacity (05/07/2023 3:03 PM FRYER LINE HELPER) Iron 84 37 - 145 ug/dL 05/07/2023 3:58 PM FRYER LINE HELPER LABORATORY Iron Binding Capacity 254 240 - 430 ug/dL 05/07/2023 3:58 PM FRYER LINE HELPER LABORATORY Iron Sat Index 33 15 - 46 % 05/07/2023 3:58 PM FRYER LINE HELPER LABORATORY Blood STRUCTURE OF RIGHT UPPER LIMB / Unknown Venipuncture / Unknown 05/07/2023 3:03 PM FRYER LINE HELPER 05/07/2023 3:04 PM FRYER LINE HELPER Jose Alejandro Dave PA-C LAB - BLOOD ORD ERABLES [facility] [address], [address] [place] [address], [place] [phone] * Parathyroid Hormone Intact (05/07/2023 3:03 PM FRYER LINE HELPER) Parathyroid Hormone Intact 47 15 - 65 pg/mL 05/07/2023 3:53 PM FRYER LINE HELPER LABORATORY Blood STRUCTURE OF RIGHT UPPER LIMB / Unknown Venipuncture / Unknown 05/07/2023 3:03 PM FRYER LINE HELPER 05/07/2023 3:04 PM FRYER LINE HELPER Narrative LABORATORY - 05/07/2023 3:53 PM FRYER LINE HELPER This result was obtained with the [employer] PTH STAT assay. This reference range differs from PTH assays used in other [facility] laboratories. Jose Alejandro Dave PA-C LAB - BLOOD ORD ERABLES LAB[facility]AT[facility] [address], [address] [place] [address], [place] [phone] * Vitamin D Screen (05/07/2023 3:03 PM FRYER LINE HELPER) Vitamin D, Total (25-Hydroxy) 46 20 - 50 ng/mL 05/08/2023 9:27 PM FRYER LINE HELPER [facility] Comment:optimum levels Blood STRUCTURE OF RIGHT UPPER LIMB / Unknown Venipuncture / Unknown 05/07/2023 3:03 PM FRYER LINE HELPER 05/07/2023 3:04 PM FRYER LINE HELPER Narrative [facility] - 05/08/2023 9:27 PM FRYER LINE HELPER Season, race, dietary intake, and treatment affect the concentration of 27-sdxzdgb-Uxxgqzn D. Values may decrease during winter months and increase during summer months. Vitamin D determination is routinely performed by an immunoassay specific for 25 hydroxyvitamin D3. ??If an individual is on vitamin D2(ergocalciferol) supplementation, please specify 25 OH vitamin D2 and D3 level determination by LCMSMS test VITD23. Jose Alejandro Dave PA-C LAB - BLOOD ORD ERABLES [facility] [address] [facility], [address] [place] [address], [place] [phone] * (ABNORMAL) Vitamin B12 (05/07/2023 3:03 PM FRYER LINE HELPER) Pathologist [facility] Vitamin B12 1,661(H) 232 - 1,245 pg/mL 05/08/2023 12:50 PM FRYER LINE HELPER [facility] Blood STRUCTURE OF RIGHT UPPER LIMB / Unknown Venipuncture / Unknown 05/07/2023 3:03 PM FRYER LINE HELPER 05/07/2023 3:04 PM FRYER LINE HELPER Jose Alejandro Dave PA-C LAB - BLOOD ORD ERABLES LABORATORY [facility] [address] [facility], [address] [place] [address], [facility] [phone] * CBC with platelets (05/07/2023 3:03 PM FRYER LINE HELPER) [facility] WBC Count 8.3 4.0 - 11.0 10e3/uL 05/07/2023 3:23 PM [facility] RBC Count 4.31 3.80 - 5.20 10e6/uL 05/07/2023 3:23 PM [facility] Hemoglobin 13.8 11.7 - 15.7 g/dL 05/07/2023 3:23 PM [facility] Hematocrit 40.3 35.0 - 47.0 % 05/07/2023 3:23 PM [facility] MCV 94 78 - 100 fL 05/07/2023 3:23 PM [facility] MCH 32.0 26.5 - 33.0 pg 05/07/2023 3:23 PM [facility] MCHC 34.2 31.5 - 36.5 g/dL 05/07/2023 3:23 PM [facility] RDW 11.9 10.0 - 15.0 % 05/07/2023 3:23 PM [facility] Platelet Count 291 150 - 450 10e3/uL 05/07/2023 3:23 PM [facility] Blood STRUCTURE OF RIGHT UPPER LIMB / Unknown Venipuncture / Unknown 05/07/2023 3:03 PM FRYER LINE HELPER 05/07/2023 3:04 PM FRYER LINE HELPER Jose Alejandro Dave PA-C LAB - BLOOD ORD ERABLES [facility] [address], [address] [place] [address], [facility] [phone] documented in this encounter Visit Diagnoses Diagnosis Bariatric surgery status- Primary Class 1 obesity due to excess calories with serious comorbidity and body mass index (BMI) of 30.0 to 30.9 in adult 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 documented in this encounter Care Teams E Commerce Analyst Relationship Specialty Start Date End Date Cristal Dubose MD [facility] [address] [place] [address] PCP - General Internal Medicine 10/13/18 Kiel Miles, PhD GRAD[employer] AND [employer] [facility] [address] [place] [address] Assigned Behavioral Health Provider 05/19/22 Christie Kelly PA-C [address] [place] [address] Assigned Surgical Provider 02/23/23 05/15/23 documented as of this encounter
--- OUTSIDE RECORDS SUMMARY | 2023-08-15 08:26 | XMS_ITS | Encounter Summary ---
Author Name Unknown Organization [place] Address [facility] [place] [address] Care Team Providers Care Hay Rake Operator Name Role Phone Cristal Dubose MD Primary Care Provider Kiel Miles PhD Unavailable [phone] Christie Kelly PA-C Unavailable [phone] Encounter Details Date Type Department Care Team (Latest Contact Info) Description 05/07/2023 Travel Social History Tobacco Use Types Packs/Day Years Used Date Smoking Tobacco: Never Smokeless Tobacco: Never Alcohol Use Standard Drinks/Week Comments Yes 0 (1 standard drink = 0.6 oz pur e alcohol) occassional Adolescent Education Answer Date Record ed Getting School Help Needed Not on file 01/18 Sex and Gender Information Value Date Recorded Sex Assigned at Female 04/21/2022 8:20 PM EQUIPMENT OPERATOR Gender Identity Female 04/21/2022 8:20 PM EQUIPMENT OPERATOR Sexual Orientation Straight 04/21/2022 8: 20 PM EQUIPMENT OPERATOR documented as of this encounter Plan of Treatment Upcoming Encounters Date Type Department Care Team (Late st Contact Info) Description 10/09/2023 9:00 AM CDT Office Visit [facility] [place] [address] [facility] [address] [place] [phone] Jose Alejandro Dave PA-C [address] [facility] [place] [address] 10/09/2023 9:30 AM CDT Office Visit [facility] [place] [address] [facility] [address] [place] [phone] [address], Sh [address] documented as of this encounter Visit Diagnoses Not on filedocumented in this encounter Care Teams Hay Rake Operator Relationship Specialty Start Date End Date Cristal Dubose MD [facility] [address] [place] [address] PCP - General Internal Medicine 10/13/18 Kiel Miles, PhD GR[employer] [facility] [address] [place] [address] Assigned Behavioral Health Provider 05/19/22 Christie Kelly PA-C [address] [facility] [address] [place] [address] Assigned Surgical Provider 02/23/23 05/15/23 documented as of this encounter
--- OUTSIDE RECORDS SUMMARY | 2023-08-15 08:26 | XMS_ITS | Clinical Summary ---
Author Name Unknown Organization [facility] Address [place], [place] [address] Care Team Providers Care Battery Engineer Name Role Phone Cristal Dubose MD Primary Care Provider [phone] Allergies Active Allergy Reactions Criticality Noted Date Comments Morphine Nausea Only 08/10/2020 Penicillins Erythema 01/08/2006 Medications Medication Sig Dispensed Refills Start Date End Date Status venlafaxine (EFFEXOR XR) 75 mg cp24 Extended-Release capsule Take 75 mg by mouth once daily with a meal. Take along with 150 mg capsule for a total dose of 225 mg once daily. 06/18/2020 Active venlafaxine (EFFEXOR XR) 150 mg Extended-Release capsule Take 150 mg by mouth once daily with evening meal. 07/08/2020 Active lisinopril-hydroch lorothiazide 20-12.5 mg tablet (PRINZIDE) Take 1 Tablet by mouth every morning. 10/03/2018 Active busPIRone (BUSPAR) 5 mg tablet Take 5 mg by mouth 2 times daily. 04/07/2021 Active gabapentin (NEURONTIN) 300 mg capsule Take 300-600 mg by mouth at bedtime. 04/07/2021 Active predniSONE (DELTASONE) 20 mg tabletIndications: Left foot pain 2 tablet once daily for 3 days then 1 tablet once daily for 3 days then 1/2 tablet once daily for 3 days. 11 Tablet 01/10/2022 Active HYDROcodone-acetam inophen (NORCO) 5-325 mg per tabletIndications: Hammertoe of left foot,Hammertoe of right foot Take 1-2 Tablets by mouth every 4 hours if needed for Pain. Max acetaminophen dose: 4000 mg in 24 hrs. 20 Tablet 03/26/2022 Active levoFLOXacin (Levaquin) 500 mg tabletIndications: Toe infection Take 1 Tablet (500 mg) by mouth once daily. 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 Immunizations Name Administration Dates Next Due Td (Age >=7 Years) 09/03/2002 Tdap 07/03/2006 07/03/2016 Family History Medical History Relation Name Comments Heart Disease Brother 1 Florencio Hypertension Brother 1 Florencio Hypertension Brother 2 Kiel Hypertension Brother 3 Mil Cancer-prostate Father Oliverio Hypertension Father Oliverio Other Father Oliverio Alzheimer's Dis ease Heart Disease Mother Yvette Hypertension Mother Yvette Osteoporosis Paternal Grandfather Other Paternal Grandmother Marlyn Alzheim er's Disease Hypertension Sister Roxanne Relation Name Status Comments Brother 1 Florencio Brother 2 Kiel Brother 3 Mil Father Oliverio (Age 75) Mother Yvette Paternal Grandfather Paternal Grandmother Marlyn Sister Roxanne Social History Tobacco Use Types Packs/Day Years Used Date Smoking Tobacco: Never Smokeless Tobacco: Never Tobacco Cessation:Counseling Given: Yes Alcohol Use Standard Drinks/Week Comments Yes 0 (1 standard drink = 0.6 oz pure alcohol) 1 drink weekly, mixed drink with vodka or beer Sex and Gender Information Value Date Recorded Sex Assigned at Not on file Gender Identity Not on file Sexual Orientation Not on file Obstetrics History Para Term AB IAB SAB Ectopic Multiple Livin g Live Births 0 0 Last Filed Vital Signs Vital Sign Reading Time Taken Comments Blood Pressure 129/86 05/16/2022 11:25 AM RETAIL TEAM LEADER Pulse 66 05/16/2022 11:25 AM RETAIL TEAM LEADER Temperature 36.8 ??C (98.3 ??F) 04/24/2022 1:17 PM CS T Respiratory Rate 16 08/15/2020 5:15 PM CDT Oxygen Saturation 98% 05/16/2022 11:25 AM RETAIL TEAM LEADER Inhaled Oxygen Concentration - - Weight 134.3 kg (296 lb) 04/12/2021 9:44 AM RETAIL TEAM LEADER Height 185.4 cm (6' 0.99) 11/09/2020 12:10 PM C DT Body Mass Index 39.06 11/09/2020 12:10 PM CDT Plan of Treatment Health Maintenance Due Date Last Done Comments Depression screening for age 12+ 1975 HIV for age 15-65 11/11/1978 Hepatitis C screening for age 18-79 11/11/1981 Colonoscopy through age 75 11/11/2008 Mammogram for age 45-75 11/11/2008 08/25/2007, 07/10 Lipids for age 45-75 10/20/2009 10/20/2004, 09/03/2002, 09/03/2002 Pap test for age 21-65 07/28/2010 8, 07/03/2006, 08/02/2004, Additional history exists Zoster (shingles) series for age 50+ (1 of 2) 11/11/2013 Tetanus booster 07/03/2016 07/03/2006, 09/03/2002 BMI (ht and wt on same day) for age 18+ 11/09/2021 11/09/2020 COVID-19 vaccine series (2022-24 season) 2022 03/07/2021, 08/03/2020, 07/06/2020 Influenza for age 50-64 12/22/2023 Tdap Completed 07/03/2006 Pneumococcal series for age 6-64 Aged Out No longer eligible based on patient's age to complete this topic Medical Devices Implanted Type Area Sculpture Instructor Device Identifier Shelf Expiration Date Model / Serial / Lot Screw Bio-Tenodisis [id number] - [id number] Implanted:Qty: 1 on 09/03/2008 at [facility] Left: Ankle [employer] 05/23/2009 AR-1555B# / / [id number] Screw Bio-Tenodesis [id number] - [id number] Implanted:Qty: 1 on 09/03/2008 at [facility] Left: Ankle [employer] 01/20/2010 AR-1547B# / / [id number] Implant On The Fly - [id number] Implanted:Qty: 1 on 09/03/2008 at [facility] Left: Ankle [facility] T[facility] 08/16/2013 1111A-FF# / / [id number] Description:Tibialis Anterio r (W) Tissue #[id number](A) Frozen, Irrad Tendon Ant Tibialis 1111a-Ff - [id number] Implanted:Qty: 1 on 12/30/2008 at [facility] Right: Ankle [facility] [employer] 11/18/2013 1111A-FF# / / TISSUE ID#: [id number] Screw Bio-Tenodesis [id number] - [id number] Implanted:Qty: 1 on 12/30/2008 at [facility] Right: Ankle [employer] 09/20/2010 AR-1547B# / / [id number] Screw Bio-Tenodesis [id number] - [id number] Implanted:Qty: 1 on 12/30/2008 at [facility] Right: Ankle [employer] 01/20/2010 AR-1547B# / / [id number] Arthrex Pip Implant, Straight, 12 Mm With Intrumentation Implanted:Qty: 2 on 08/15/2020 by Aj Milian DPM at [facility] Bilateral : Foot [employer] 05/22/2025 AR-4158DS -12S / AR-4158DS -12S / [id number] Ar[employer]rex Pip Implant, Straight, 12 Mm With Intrumentation Implanted:Qty: 1 on 08/15/2020 by Aj Milian DPM at [facility] Right: Foot [employer] 03/21/2025 AR-4158DS -12S / / [id number] Procedures Procedure Name Priority Date/Time Associated Diagnosis Comments XR MAMMO BILAT DIAG FFDM (IA) Routine 08/25/2007 2:29 PM CDT Signs And Symptoms In Breast Other Lump Or Mass In Breast TOPOGRAPHICAL SURVEYOR THIN PREP PAP SCREEN IMAGED Routine 07/29/2007 3:17 PM CDT Routine Gynecological Examination LIPID PANEL Timed 10/20/2004 9:47 AM CDT from Last 3 Months or Most Recently Relevant to Health Maintenance Results * XR MAMMO BILAT DIAG FFDM (08/25/2007 2:29 PM CDT) MAMMOGRAM ACR 2 Benign Finding Anatomical Region Laterality Modality BREASTS, Breast Left, Breast Right Bilateral Mammography 08/25/2007 2:29 PM CDT Narrative 08/25/2007 5:08 PM CDT BILATERAL DIAGNOSTIC FULL FIELD DIGITAL MAMMOGRAM WITH CAD AND LEFT BREAST ULTRASOUND: INDICATION: ??Small palpable left subareolar lump. ?? REPORT: ?? MAMMOGRAM: ??The subareolar lump on the left was marked and corresponds to a mammographic density which is stable since 07/10/06. ??The left breast is otherwise unremarkable. The right breast is negative. ?? No interval change. ?? LEFT BREAST ULTRASOUND: ??Real time scanning guided by manual palpation shows that the palpable abnormality in the subareolar breast corresponds to a benign simple cyst, which measures 8 mm and is stable. ??No solid lesions demonstrated. Findings discussed with the patient and she will follow-up with Dr. Magaña. ACR 2 Benign Finding. Procedure Note Silvestre Cox MD / Calin Morales - 09/03/2007 BILATERAL DIAGNOSTIC FULL FIELD DIGITAL MAMMOGRAM WITH CAD AND LEFT BREASTULTRASOUND: INDICATION: Small palpable left subareolar lump. REPORT: MAMMOGRAM: The subareolar lump on the left was marked and corresponds toa mammographic density which is stable since 07/10/06. The left breast isotherwise unremarkable. The right breast is negative. No intervalchange. LEFT BREAST ULTRASOUND: Real time scanning guided by manual palpationshows that the palpable abnormality in the subareolar breast correspondsto a benign simple cyst, which measures 8 mm and is stable. No solidlesions demonstrated. Findings discussed with the patient and she will follow-up with . ACR 2 Benign Finding. Eleonora Magaña MD MAMMO * TOPOGRAPHICAL SURVEYOR THIN PREP PAP SCREEN IMAGED (07/29/2007 3:17 PM CDT) CYTOLOGY ??CYTOPATHOLOGY REPORT ??[facility] ?? Status: Final Report ? [id number] ?? CLINICAL INFORMATION ?LMP ? : 07/16/07 ?Previous Pap Date ? : 07/03/06 ?Previous PAP Dx ? : Negative for intraepithelial lesion or ?malignancy. ?Previous [place]/bx date : None ?Previous Colposcopy/Bx: None ?Hormone Usage ? : BCP/OCP/Patch/Ring ?Menstrual Status ?: Regular Periods ?Appearance of Cervix ??: Not given ?[place]/Bx done today ?: No ?HPV Request ? : Reflex HPV test if PAP Dx ASCUS ?? SPECIMEN SOURCE ?: Cervical/vaginal ThinPrep Vial, screening ?? SPECIMEN ADEQUACY ?: Satisfactory for evaluation No endocervical ?component seen. ? INTERPRETATION/RES ULT: ?Negative for intraepithelial lesion or malignancy. ? Cytology 1st Screener : ??cml ?? Signed by: ? cml ?? This specimen was screened by the FDA approved ThinPrep Imaging ?? System and manually reviewed. ?? NOTE: The Pap test is a screening technique, not a diagnostic ?? procedure. It is used primarily to screen for squamous cancers and ?? precursor lesions. Published studies have shown that it is subject to ?? both false negative and false positive results. The pap test should ?? not be used as the sole means to diagnose or exclude pre-malignant and ?? malignant lesions. ?? COLLECTED: 07/29/07 ?? ACCESSIONED: 07/29/07 ?? SIGNED: 08/06/07 [facility] Cervical (Cervical) 07/29/2007 3:17 PM CDT 07/29/2007 3:16 PM CDT Zoë Martinez MD PATHOLOGY/CYTOLOGY [facility] [place]NAL ZIP [address] [place] [address] * LIPID PANEL (10/20/2004 9:47 AM CDT) CHOLESTEROL,TOTAL 186 110 - 199 mg/dL [facility] TRIGLYCERIDES 90 40 - 149 mg/dL [facility] HDL CHOLESTEROL 64 41 - 95 mg/dL [facility] CHOL/HDL RATIO 2.91 <4.51 [facility] LDL CHOLESTEROL 104 60 - 130 mg/dL [facility] PATIENT STATUS Fasting [facility] 10/20/2004 9:47 AM CDT 10/20/2004 12:30 PM CDT Zoë Martinez MD CHEMISTRY [facility] SENDOUT INTERNAL ZIP [address] [address] [place] [address] from Last 3 Months or Most Recently Relevant to Health Maintenance Advance Directives * Full Code (Latest Code Status on File) Date Activated Date Inactivated Comments 08/15/2020 11:45 AM 08/15/2020 7:45 PM Question Answer Comments Code Status Discussion: Discussed * Full Code Date Activated Date Inactivated Comments 08/15/2020 11:45 AM 08/15/2020 11:45 AM Question Answer Comments Code Status Discussion: Discussed Care Teams Battery Engineer Relationship Specialty Start Date End Date Cristal Dubose MD PCP - General 07/28/08
--- OUTSIDE RECORDS SUMMARY | 2023-08-15 08:27 | XMS_ITS | Encounter Summary ---
Author Name Unknown Organization [facility] Address [address] [place] [address]. [place] [address] Care Team Providers Care Residential Carpet Installer Name Role Phone Cristal Dubose MD Primary Care Provider [phone] Kiel Miles PhD Unavailable [phone] Christie KellyC Unavailable [phone] Jose Alejandro Dave PA-C Unavailable [phone] Encounter Details Date Type Department Care Team (Late st Contact Info) Description 04/30/2023 MyC Medical Advice [facility] [address] [place] [phone] Alesia Oreilly, WEIGHT CALCULATOR Social History Tobacco Use Types Packs/Day Years Used Date Smoking Tobacco: Never Smokeless Tobacco: Never Alcohol Use Standard Drinks/Week Comments Yes 0 (1 standard drink = 0.6 oz pur e alcohol) occassional Adolescent Education Answer Date Record ed Getting School Help Needed Not on file 01/18 Sex and Gender Information Value Date Recorded Sex Assigned at Female 04/21/2022 8:20 PM COMMERCIAL UNDERWRITER Gender Identity Female 04/21/2022 8:20 PM COMMERCIAL UNDERWRITER Sexual Orientation Straight 04/21/2022 8: 20 PM COMMERCIAL UNDERWRITER documented as of this encounter Plan of Treatment Upcoming Encounters Date Type Department Care Team (Late st Contact Info) Description 10/09/2023 9:00 AM CDT Office Visit [facility] [address] [place] [phone] Jose Alejandro Dave PA-C [address] [place] [address] 10/09/2023 9:30 AM CDT Office Visit [facility] [place] [address] [facility] [address] [place] [phone] 1, Sh Wl Diet, RD documented as of this encounter Visit Diagnoses Not on filedocumented in this encounter Care Teams Residential Carpet Installer Relationship Specialty Start Date End Date Cristal Dubose MD [facility] [address] [place] [address] PCP - General Internal Medicine 10/13/18 Kiel Miles, PhD [employer] [address] [place] [address] Assigned Behavioral Health Provider 05/19/22 Christie Kelly PA-C [address] [address] Assigned Surgical Provider 02/23/23 05/15/23 Jose Alejandro Dave PA-C [address] [place] [address] Assigned Surgical Provider 05/16/23 documented as of this encounter
--- OUTSIDE RECORDS SUMMARY | 2023-08-15 08:27 | XMS_ITS | Encounter Summary ---
Author Name Unknown Organization [place] Address [facility] [place] [address] Care Team Providers Care Butter Maker Name Role Phone Cristal Dubose MD Primary Care Provider [phone] Kiel Miles PhD Unavailable [phone] Kris Vail MD Unavailable [phone] Jose Alejandro Dave PA-C Unavailable [phone] Christie Kelly-C Unavailable [phone] Jose Alejandro Dave PA-C Unavailable [phone] Encounter Details Date Type Department Care Team (Late st Contact Info) Description 06/13/2022 MyC Medical Advice [facility] [address] [place] [phone] Marcela Perez, EPI [facility] [address] [place] [address] [address] [place] [id number] Social History Tobacco Use Types Packs/Day Years Used Date Smoking Tobacco: Never Smokeless Tobacco: Never Sex and Gender Information Value Date Recorded Sex Assigned at Female 04/21/2022 8:20 PM MARBLE RUBBER Gender Identity Female 04/21/2022 8:20 PM MARBLE RUBBER Sexual Orientation Straight 04/21/2022 8: 20 PM MARBLE RUBBER documented as of this encounter Plan of Treatment Upcoming Encounters Date Type Department Care Team (Late st Contact Info) Description 10/09/2023 9:00 AM CDT Office Visit [facility] [place] [address] [facility] [address] [place] [phone] Jose Alejandro Dvae PA-C [address] [place] [id number] 10/09/2023 9:30 AM CDT Office Visit [facility] [place] [address] [facility] [address] [place] [phone] 1, Sh Wl Diet, RD documented as of this encounter Visit Diagnoses Not on filedocumented in this encounter Care Teams Butter Maker Relationship Specialty Start Date End Date Cristal Dubose MD [facility] [address] [place] [address] PCP - General Internal Medicine 10/13/18 Kiel Miles, PhD [employer] [facility] [address] [facility] [place] [address] Assigned Behavioral Health Provider 05/19/22 Kris Vail MD [address] [place] [address] Assigned Surgical Provider 09/08/22 10/19/22 Jose Alejandro Dave PA-C [address] [id number] Assigned Surgical Provider 10/20/22 02/22/23 Christie Kelly PA-C [address] [place] [address] Assigned Surgical Provider 02/23/23 05/15/23 Jose Alejandro Dave PA-C [address] [place] [address] [address] Assigned Surgical Provider 05/16/23 documented as of this encounter
--- OUTSIDE RECORDS SUMMARY | 2023-08-15 08:27 | XMS_ITS | Encounter Summary ---
Author Name Unknown Organization [place] Address [facility] [place] [address] Care Team Providers Care High School Science Teacher Name Role Phone Cristal Dubose MD Primary Care Provider Kiel Miles PhD Unavailable [phone] Kris Vail MD Unavailable [phone] Jose Alejandro Daev PA-C Unavailable [phone] Christie Kelly-C Unavailable [phone] Jose Alejandro Dave PA-C Unavailable [phone] Encounter Details Date Type Department Care Team (Late st Contact Info) Description 08/22/[address] [facility] [place] [address] [place] [phone] Marcela Perez RN [facility] [address] [place] [address] Social History Tobacco Use Types Packs/Day Years Used Date Smoking Tobacco: Never Smokeless Tobacco: Never Sex and Gender Information Value Date Recorded Sex Assigned at Female 04/21/2022 8:20 PM STAPLER HAND Gender Identity Female 04/21/2022 8:20 PM STAPLER HAND Sexual Orientation Straight 04/21/2022 8: 20 PM STAPLER HAND COVID-19 Exposure Response Date Recorded In the last 10 days, have yo u been in contact with someone who was confirmed or suspected to have Coronavirus/COVID-19? No / Unsure 08/22/2022 9:45 AM CDT documented as of this encounter Plan of Treatment Upcoming Encounters Date Type Department Care Team (Late st Contact Info) Description 10/09/2023 9:00 AM CDT Office Visit [facility] [place] [address] [facility] [address] [place] [phone] Jose Alejandro Dave PA-C [address] [place] [address] 10/09/2023 9:30 AM CDT Office Visit [facility] [place] [address] [facility] [address] [place] [phone] 1, Sh Wl Gloria, RD documented as of this encounter Visit Diagnoses Not on filedocumented in this encounter Care Teams High School Science Teacher Relationship Specialty Start Date End Date Cristal Dubose MD [facility] [address] [place] [address] PCP - General Internal Medicine 10/13/18 Kiel Miles, PhD [employer] [facility] [address] [place] [address] Assigned Behavioral Health Provider 05/19/22 Kris Vail MD [address] [place] [address] Assigned Surgical Provider 09/08/22 10/19/22 Jose Alejandro Dave PA-C [address] [place] [id number] Assigned Surgical Provider 10/20/22 02/22/23 Christie Kelly PA-C [address] [place] [address] Assigned Surgical Provider 02/23/23 05/15/23 Jose Alejandro Dave PA-C [address] [place] [address] [address] Assigned Surgical Provider 05/16/23 documented as of this encounter
--- OUTSIDE RECORDS SUMMARY | 2023-08-15 08:27 | XMS_ITS | Encounter Summary ---
Author Name Unknown Organization [place] Address [facility] [place] [address] Care Team Providers Care Sales Branch Manager Name Role Phone Cristal Dubose MD Primary Care Provider Kiel Miles PhD Unavailable [phone] Kris Vail MD Unavailable [phone] Jose Alejandro Dave PA-C Unavailable [phone] Christie Kelly PA-C Unavailable [phone] Jose Alejandro Dave PA-C Unavailable [phone] Encounter Details Date Type Department Care Team (Late st Contact Info) Description 04/22/2022 MyC Medical Advice Initial Department [facility] Social History Tobacco Use Types Packs/Day Years Used Date Smoking Tobacco: Never Smokeless Tobacco: Never Sex and Gender Information Value Date Recorded Sex Assigned at Female 04/21/2022 8:20 PM ARMHOLE RAISER LOCKSTITCH Gender Identity Female 04/21/2022 8:20 PM ARMHOLE RAISER LOCKSTITCH Sexual Orientation Straight 04/21/2022 8: 20 PM ARMHOLE RAISER LOCKSTITCH documented as of this encounter Plan of Treatment Upcoming Encounters Date Type Department Care Team (Late st Contact Info) Description 10/09/2023 9:00 AM CDT Office Visit [facility] [place] [address] [facility] [address] [place] [phone] Jose Alejandro Dave PA-C [address] [facility] [place] [address] 10/09/2023 9:30 AM CDT Office Visit [facility] [place] [address] [facility] [address] [place] [phone] 1, Sh Wl Diet, RD documented as of this encounter Visit Diagnoses Not on filedocumented in this encounter Care Teams Sales Branch Manager Relationship Specialty Start Date End Date Cristal Dubose MD [facility] [address] [place] [address] PCP - General Internal Medicine 10/13/18 Kiel Miles, PhD [employer] [facility] [address] [place] [address] Assigned Behavioral Health Provider 05/19/22 Kris Vail MD [address] [place] [address] Assigned Surgical Provider 09/08/22 10/19/22 Jose Alejandro Dave PA-C [address] [place] [address] Assigned Surgical Provider 10/20/22 02/22/23 Christie Kelly PA-C [address] [address] Assigned Surgical Provider 02/23/23 05/15/23 Jose Alejandro Dave PA-C [address] [address] Assigned Surgical Provider 05/16/23 documented as of this encounter
--- OUTSIDE RECORDS SUMMARY | 2023-08-15 08:27 | XMS_ITS | Encounter Summary ---
Author Name Unknown Organization [place] Address [address] [place] [address] Care Team Providers Care Supervisory Cbp Officer Name Role Phone Cristal Dubose MD Primary Care Provider Kiel Miles PhD Unavailable [phone] Jose Alejandro Dave PA-C Unavailable [phone] Christie Kelly-C Unavailable [phone] Jose Alejandro Dave PA-C Unavailable [phone] Encounter Details Date Type Department Care Team (Late st Contact Info) Description 01/24/2023 MyC Medical Advice [facility] [address] [place] [address] Alesia Oreilly, CADD INSTRUCTOR Social History Tobacco Use Types Packs/Day Years Used Date Smoking Tobacco: Never Smokeless Tobacco: Never Alcohol Use Standard Drinks/Week Comments Yes 0 (1 standard drink = 0.6 oz pur e alcohol) occassional Adolescent Education Answer Date Record ed Getting School Help Needed Not on file 01/18 Sex and Gender Information Value Date Recorded Sex Assigned at Female 04/21/2022 8:20 PM DOPSTER Gender Identity Female 04/21/2022 8:20 PM DOPSTER Sexual Orientation Straight 04/21/2022 8: 20 PM DOPSTER documented as of this encounter Plan of Treatment Upcoming Encounters Date Type Department Care Team (Late st Contact Info) Description 10/09/2023 9:00 AM CDT Office Visit [facility] [place] [address] [facility] [address] [place] [phone] Jose Alejandro Dave PA-C [address] [place] [address] [address] 10/09/2023 9:30 AM CDT Office Visit [facility] [place] [address] [facility] [address] [place] [phone] 1, Sh Wl Diet, RD documented as of this encounter Visit Diagnoses Not on filedocumented in this encounter Care Teams Supervisory Cbp Officer Relationship Specialty Start Date End Date Cristal Dubose MD [facility] [address] [place] [address] PCP - General Internal Medicine 10/13/18 Kiel Miles, PhD [employer] [facility] [address] [place] [id number] Assigned Behavioral Health Provider 05/19/22 Jose Alejandro Dave PA-C [address] [place] [address] Assigned Surgical Provider 10/20/22 02/22/23 Christie Kelly PA-C [address] [address] Assigned Surgical Provider 02/23/23 05/15/23 Jose Alejandro Dave PA-C [address] [address] Assigned Surgical Provider 05/16/23 documented as of this encounter
--- OUTSIDE RECORDS SUMMARY | 2023-08-15 08:27 | XMS_ITS | Encounter Summary ---
Author Name Unknown Organization [facility] Address [address] [place] [address] Care Team Providers Care Calibrator Barometers Name Role Phone Cristal Dubose MD Primary Care Provider Kiel Miles PhD Unavailable [phone] Kris Vail MD Unavailable [phone] Jose Alejandro Dave PA-C Unavailable [phone] Christie Kelly PA-C Unavailable [phone] Jose Alejandro Dave PA-C Unavailable [phone] Encounter Details Date Type Department Care Team (Late st Contact Info) Description 01/10/2022 MyC Medical Advice Initial Department [facility] Social History Tobacco Use Types Packs/Day Years Used Date Smoking Tobacco: Never Smokeless Tobacco: Never Sex and Gender Information Value Date Recorded Sex Assigned at Female 04/21/2022 8:20 PM SHAREPOINT MANAGER Gender Identity Female 04/21/2022 8:20 PM SHAREPOINT MANAGER Sexual Orientation Straight 04/21/2022 8: 20 PM SHAREPOINT MANAGER COVID-19 Exposure Response Date Recorded In the last 10 days, have yo u been in contact with someone who was confirmed or suspected to have Coronavirus/COVID-19? No / Unsure 01/11/2022 8:35 AM CDT documented as of this encounter Plan of Treatment Upcoming Encounters Date Type Department Care Team (Late Contact Info) Description 10/09/2023 9:00 AM CDT [facility] Visit [facility] [place] [address] [facility] [address] [place] [phone] Jose Alejandro Dave PA-C [address] [place] [address] 10/09/2023 9:30 AM CDT Office Visit [facility] [place] [address] [facility] [address] [place] [phone] 1, Sh Wl Diet, RD documented as of this encounter Visit Diagnoses Not on filedocumented in this encounter Care Teams Calibrator Barometers Relationship Specialty Start Date End Date Cristal Dubose MD [facility] [address] [place] [address] PCP - General Internal Medicine 10/13/18 Kiel Miles, PhD [employer] [facility] [address] [place] [address] Assigned Behavioral Health Provider 05/19/22 Kris Vail MD [address] [place] [address] Assigned Surgical Provider 09/08/22 10/19/22 Joes Alejandro Dave PA-C [address] [address] Assigned Surgical Provider 10/20/22 02/22/23 Christie Kelly PA-C [address] [address] Assigned Surgical Provider 02/23/23 05/15/23 Jose Alejandro Dave PA-C [address] [address] Assigned Surgical Provider 05/16/23 documented as of this encounter
--- OUTSIDE RECORDS SUMMARY | 2023-08-15 08:27 | XMS_ITS | Encounter Summary ---
Author Name Unknown Organization [facility] Address Replaced by [facility] [place] [address] Care Team Providers Care Transfer Table Operator Name Role Phone Cristal Dubose MD Primary Care Provider [phone] Kiel Miles PhD Unavailable [phone] Kris Vail MD Unavailable [phone] Jose Alejandro DaveC Unavailable [phone] Christie Kelly-C Unavailable [phone] Jose Alejandro Dave-Gideon Unavailable [phone] Encounter Details Date Type Department Care Team (Late st Contact Info) Description 06/25/2022 [facility] [address] [place] [address] , [address] [place] [phone] [facility] Social History Tobacco Use Types Packs/Day Years Used Date Smoking Tobacco: Never Smokeless Tobacco: Never Sex and Gender Information Value Date Recorded Sex Assigned at Female 04/21/2022 8:20 PM DIETICIAN Gender Identity Female 04/21/2022 8:20 PM DIETICIAN Sexual Orientation Straight 04/21/2022 8: 20 PM DIETICIAN COVID-19 Exposure Response Date Recorded In the last 10 days, have yo u been in contact with someone who was confirmed or suspected to have Coronavirus/COVID-19? No / Unsure 06/25/2022 9:58 AM DIETICIAN documented as of this encounter Plan of Treatment Upcoming Encounters Date Type Department Care Team (Late st Contact Info) Description 10/09/2023 9:00 AM CDT Office Visit [facility] [place] [address] [facility] [address] [place] [phone] Jose Alejandro Dave PA-C [address] [place] [address] 10/09/2023 9:30 AM CDT Office Visit [facility] [place] [address] [facility] [address] [place] [phone] 1, Sh Wl Diet, RD documented as of this encounter Visit Diagnoses Not on filedocumented in this encounter Care Teams Transfer Table Operator Relationship Specialty Start Date End Date Cristal Dubose MD [facility] [address] [place] [address] PCP - General Internal Medicine 10/13/18 Kiel Miles, PhD [employer] [facility] [address] [place] [address] Assigned Behavioral Health Provider 05/19/22 Kris Vail MD [address] [place] [address] Assigned Surgical Provider 09/08/22 10/19/22 Jose Alejandro Dave PA-C [address] [place] [address] Assigned Surgical Provider 10/20/22 02/22/23 Christie Kelly PA-C [address] [place] [address] Assigned Surgical Provider 02/23/23 05/15/23 Jose Alejandro Dave PA-C [address] [address] Assigned Surgical Provider 05/16/23 documented as of this encounter
--- OUTSIDE RECORDS SUMMARY | 2023-08-15 08:27 | XMS_ITS | Encounter Summary ---
Author Name Unknown Organization [facility] Address [address] [place] [address]. [place] [address] Care Team Providers Care Building Carpenter Helper Name Role Phone Cristal Dubose MD Primary Care Provider Kiel Miles PhD Unavailable [phone] Kris Vail MD Unavailable [phone] Jose Alejandro Dave PA-C Unavailable [phone] Christie Kelly-C Unavailable [phone] Jose Alejandro Dave PA-C Unavailable [phone] Encounter Details Date Type Department Care Team (Late st Contact Info) Description 09/24/2022 MyC Medical Advice [facility] [address] [place] [phone] Anali Rosales RN Social History Tobacco Use Types Packs/Day Years Used Date Smoking Tobacco: Never Smokeless Tobacco: Never Sex and Gender Information Value Date Recorded Sex Assigned at Female 04/21/2022 8:20 PM STEEL FITTER Gender Identity Female 04/21/2022 8:20 PM STEEL FITTER Sexual Orientation Straight 04/21/2022 8: 20 PM STEEL FITTER COVID-19 Exposure Response Date Recorded In the last 10 days, have yo u been in contact with someone who was confirmed or suspected to have Coronavirus/COVID-19? Unable to assess 09/27/2022 12:00 PM CDT documented as of this encounter Plan of Treatment Upcoming Encounters Date Type Department Care Team (Late st Contact Info) Description 10/09/2023 9:00 AM CDT Office Visit [facility] [place] [address] [facility] [address] [place] [phone] Jose Alejandro Dave PA-C [address] [place] [id number] 10/09/2023 9:30 AM CDT Office Visit [facility] [place] [id number] [facility] [address] [place] [phone] 1, Sh Wl Diet, RD documented as of this encounter Visit Diagnoses Not on filedocumented in this encounter Care Teams Building Carpenter Helper Relationship Specialty Start Date End Date Cristal Dubose MD [facility] [address] [place] [address] PCP - General Internal Medicine 10/13/18 Kiel Miles, PhD [employer] [address] [place] [address] Assigned Behavioral Health Provider 05/19/22 Kris Vail MD [address] [place] [address] Assigned Surgical Provider 09/08/22 10/19/22 Jose Alejandro Dave PA-C [address] [place] [address] Assigned Surgical Provider 10/20/22 02/22/23 Christie Kelly PA-C [address] [place] [address] Assigned Surgical Provider 02/23/23 05/15/23 Jose Alejandro Dave PA-C [address] [address] Assigned Surgical Provider 05/16/23 documented as of this encounter
--- OUTSIDE RECORDS SUMMARY | 2023-08-15 08:27 | XMS_ITS | Encounter Summary ---
Author Name Unknown Organization [place] [facility] Address [address] [place] [address] Care Team Providers Care Line Production Cook Name Role Phone Cristal Dubose MD Primary Care Provider Kiel Miles PhD Unavailable [phone] Jose Alejandro Dave PA-C Unavailable [phone] Christie Kelly-Gideon Unavailable [phone] Jose Alejandro Dave PA-C Unavailable [phone] Encounter Details Date Type Department Care Team (Late st Contact Info) Description 02/15/2023 MyC Medical Advice [facility] [address] [place] [phone] Alesia Oreilly, SCIENTOLOGIST Social History Tobacco Use Types Packs/Day Years Used Date Smoking Tobacco: Never Smokeless Tobacco: Never Alcohol Use Standard Drinks/Week Comments Yes 0 (1 standard drink = 0.6 oz pur e alcohol) occassional Adolescent Education Answer Date Record ed Getting School Help Needed Not on file 01/18 Sex and Gender Information Value Date Recorded Sex Assigned at Female 04/21/2022 8:20 PM CAR DROPPER Gender Identity Female 04/21/2022 8:20 PM CAR DROPPER Sexual Orientation Straight 04/21/2022 8: 20 PM CAR DROPPER COVID-19 Exposure Response Date Recorded In the last 10 days, have yo u been in contact with someone who was confirmed or suspected to have Coronavirus/COVID-19? No / Unsure 01/28/2023 10:22 AM CDT documented as of this encounter Plan of Treatment Upcoming Encounters Date Type Department Care Team (Late st Contact Info) Description 10/09/2023 9:00 AM CDT Office Visit [facility] [place] [address] [facility] [address] [place] [phone] Jose Alejandro Dave PA-C [address] [place] [id number] 10/09/2023 9:30 AM CDT Office Visit [facility] [place] [address] [facility] [address] [place] [phone] 1, Sh Wl Diet, RD documented as of this encounter Visit Diagnoses Not on filedocumented in this encounter Care Teams Line Production Cook Relationship Specialty Start Date End Date Cristal Dubose MD [facility] [address] [place] [address] PCP - General Internal Medicine 10/13/18 Kiel Miles, PhD [employer] [facility] [facility] [address] [place] [address] Assigned Behavioral Health Provider 05/19/22 Jose Alejandro Dave PA-C [address] [place] [address] Assigned Surgical Provider 10/20/22 02/22/23 Christie Kelly PA-C [address] [place] [address] Assigned Surgical Provider 02/23/23 05/15/23 Jose Alejandro Dave PA-C [address] [address] Assigned Surgical Provider 05/16/23 documented as of this encounter
--- OUTSIDE RECORDS SUMMARY | 2023-08-15 08:27 | XMS_ITS | Encounter Summary ---
Author Name Unknown Organization [facility] Address [address] [place] [address]. [place] [address] Care Team Providers Care Work Manager Name Role Phone Cristal Dubose MD Primary Care Provider Kiel Miles PhD Unavailable [phone] Christie Kelly-C Unavailable + [phone] Jose Alejandro Dave PA-C Unavailable [phone] Encounter Details Date Type Department Care Team (Late st Contact Info) Description 05/06/2023 MyC Medical Advice [facility] [address] [place] [phone] Renay Franklin MA Social History Tobacco Use Types Packs/Day Years Used Date Smoking Tobacco: Never Smokeless Tobacco: Never Alcohol Use Standard Drinks/Week Comments Yes 0 (1 standard drink = 0.6 oz pur e alcohol) occassional Adolescent Education Answer Date Record ed Getting School Help Needed Not on file 01/18 Sex and Gender Information Value Date Recorded Sex Assigned at Female 04/21/2022 8:20 PM SOFTWARE SYSTEMS ANALYST Gender Identity Female 04/21/2022 8:20 PM SOFTWARE SYSTEMS ANALYST Sexual Orientation Straight 04/21/2022 8: 20 PM SOFTWARE SYSTEMS ANALYST documented as of this encounter Plan of Treatment Upcoming Encounters Date Type Department Care Team (Late st Contact Info) Description 10/09/2023 9:00 AM CDT Office Visit [facility] [address] [place] [phone] Jose Alejandro Dave PA-C [address] [address] 10/09/2023 9:30 AM CDT Office Visit [facility] [place] [address] [facility] [address] [place] [phone] 1, Sh Wl Diet, RD documented as of this encounter Visit Diagnoses Not on filedocumented in this encounter Care Teams Work Manager Relationship Specialty Start Date End Date Cristal Dubose MD [facility] [address] [place] [address] PCP - General Internal Medicine 10/13/18 Kiel Miles, PhD [employer] [address] [place] [address] Assigned Behavioral Health Provider 05/19/22 Christie Kelly PA-C [address] [place] [address] Assigned Surgical Provider 02/23/23 05/15/23 Jose Alejandro Dave PA-C [address] [address] Assigned Surgical Provider 05/16/23 documented as of this encounter
--- OUTSIDE RECORDS SUMMARY | 2023-08-15 08:27 | XMS_ITS | Encounter Summary ---
Author Name Unknown Organization [facility] Address [address] [place] [address]. [place] [address] Care Team Providers Care Maintenance Equipment Operator Name Role Phone Cristal Dubose MD Primary Care Provider Kiel Miles PhD Unavailable [phone] Kris Vail MD Unavailable [phone] Jose Alejandro Dave PA-C Unavailable [phone] Christie Kelly-C Unavailable [phone] Jose Alejandro Dave PA-C Unavailable [phone] Encounter Details Date Type Department Care Team (Late st Contact Info) Description 06/28/2022 MyC Medical Advice [facility] [address] [place] [phone] Chepe Arellano MD [address] [facility] [address] [place], [place] [id number] Social History Tobacco Use Types Packs/Day Years Used Date Smoking Tobacco: Never Smokeless Tobacco: Never Sex and Gender Information Value Date Recorded Sex Assigned at Female 04/21/2022 8:20 PM WALLCOVERING HANGER Gender Identity Female 04/21/2022 8:20 PM WALLCOVERING HANGER Sexual Orientation Straight 04/21/2022 8: 20 PM WALLCOVERING HANGER COVID-19 Exposure Response Date Recorded In the last 10 days, have yo u been in contact with someone who was confirmed or suspected to have Coronavirus/COVID-19? No / Unsure 06/25/2022 9:58 AM WALLCOVERING HANGER documented as of this encounter Plan of Treatment Upcoming Encounters Date Type Department Care Team (Late st Contact Info) Description 10/09/2023 9:00 AM CDT Office Visit [facility] [place] [address] [facility] [address] [place] [phone] Jose Alejandro Dave PA-C [address] [place] [address] 10/09/2023 9:30 AM CDT Office Visit [facility] [place] [address] [facility] [address] [place] [phone] 1, Sh Keeley Castro, RD documented as of this encounter Visit Diagnoses Not on filedocumented in this encounter Care Teams Maintenance Equipment Operator Relationship Specialty Start Date End Date Cristal Dubose MD [facility] [address] [place] [address] PCP - General Internal Medicine 10/13/18 Kiel Miles, PhD [facility] [address] [place] [address] Assigned Behavioral Health Provider 05/19/22 Kris Vail MD [address] [place] [address] Assigned Surgical Provider 09/08/22 10/19/22 Jose Alejandro Dave PA-C [address] [place] [address] Assigned Surgical Provider 10/20/22 02/22/23 Christie Kelly PA-C [address] [place] [address] Assigned Surgical Provider 02/23/23 05/15/23 Jose Alejandro Dave PA-C [address] [address] Assigned Surgical Provider 05/16/23 documented as of this encounter
--- OUTSIDE RECORDS SUMMARY | 2023-08-15 08:27 | XMS_ITS | Encounter Summary ---
Author Name Unknown Organization [facility] Address [facility] [place] [address] Care Team Providers Care Waistband Setter Lockstitch Name Role Phone Cristal Dubose MD Primary Care Provider Kiel Miles PhD Unavailable [phone] Kris Vail MD Unavailable [phone] Jose Alejandro Dave PA-C Unavailable [phone] Christie Kelly-C Unavailable [phone] Jose Alejandro Dave PA-C Unavailable [phone] Encounter Details Date Type Department Care Team (Late st Contact Info) Description 04/23/2022 [facility] [address] [place] [phone] Marcela Perez, EPI [facility] [address] [place] [address] [address] [place] [address] Social History Tobacco Use Types Packs/Day Years Used Date Smoking Tobacco: Never Smokeless Tobacco: Never Sex and Gender Information Value Date Recorded Sex Assigned at Female 04/21/2022 8:20 PM SUMATRA OPENER Gender Identity Female 04/21/2022 8:20 PM SUMATRA OPENER Sexual Orientation Straight 04/21/2022 8: 20 PM SUMATRA OPENER documented as of this encounter Plan of Treatment Upcoming Encounters Date Type Department Care Team (Late st Contact Info) Description 10/09/2023 9:00 AM CDT Office Visit [facility] [place] [address] [facility] [address] [place] [phone] Jose Alejandro Dave PA-C [address] [place] [address] 10/09/2023 9:30 AM CDT Office Visit [facility] [place] [address] [facility] [address] [place] [phone] 1, Sh Wl Diet, RD documented as of this encounter Visit Diagnoses Not on filedocumented in this encounter Care Teams Waistband Setter Lockstitch Relationship Specialty Start Date End Date Cristal Dubose MD [facility] [address] [place] [address] PCP - General Internal Medicine 10/13/18 Kiel Miles, PhD [facility] [address] [facility] [place] [address] Assigned Behavioral Health Provider 05/19/22 Kris Vail MD [address] [address] Assigned Surgical Provider 09/08/22 10/19/22 Jose Alejandro Dave PA-C [address] [address] Assigned Surgical Provider 10/20/22 02/22/23 Christie Kelly PA-C [address] [place] [address] Assigned Surgical Provider 02/23/23 05/15/23 Jose Alejandro Dave PA-C [address] [address] Assigned Surgical Provider 05/16/23 documented as of this encounter
--- OUTSIDE RECORDS SUMMARY | 2023-08-15 08:27 | XMS_ITS | Encounter Summary ---
Author Name Unknown Organization [facility] Address [address] [place] [address] Care Team Providers Care Girls Swimming Coach Name Role Phone Cristal Dubose MD Primary Care Provider Kiel Miles PhD Unavailable [phone] Kris Vail MD Unavailable [phone] Jose Alejandro Dave PA-C Unavailable [phone] Christie Kelly-C Unavailable [phone] Jose Alejandro Dave PA-C Unavailable [phone] Encounter Details Date Type Department Care Team (Late st Contact Info) Description 01/05/2022 MyC Medical Advice [facility] [address] [place] [phone] Marie Corley MA Social History Tobacco Use Types Packs/Day Years Used Date Smoking Tobacco: Never Smokeless Tobacco: Never Sex and Gender Information Value Date Recorded Sex Assigned at Female 04/21/2022 8:20 PM CONCRETE INSPECTOR Gender Identity Female 04/21/2022 8:20 PM CONCRETE INSPECTOR Sexual Orientation Straight 04/21/2022 8: 20 PM CONCRETE INSPECTOR documented as of this encounter Plan of Treatment Upcoming Encounters Date Type Department Care Team (Late st Contact Info) Description 10/09/2023 9:00 AM CDT Office Visit [facility] [address] [place] [phone] Jose Alejandro Dave PA-C [address] [address] 10/09/2023 9:30 AM CDT Office Visit [facility] [place] [address] [facility] [address] [place] [phone] 1, Sh Wl Diet, RD documented as of this encounter Visit Diagnoses Not on filedocumented in this encounter Care Teams Girls Swimming Coach Relationship Specialty Start Date End Date Cristal Dubose MD [facility] [address] [place] [address] PCP - General Internal Medicine 10/13/18 Kiel Miles, PhD [employer] [address] [place] [address] Assigned Behavioral Health Provider 05/19/22 Kris Vail MD [address] [place] [address] Assigned Surgical Provider 09/08/22 10/19/22 Jose Alejandro Dave PA-C [address] [address] Assigned Surgical Provider 10/20/22 02/22/23 Christie Kelly PA-C [address] [address] Assigned Surgical Provider 02/23/23 05/15/23 Jose Alejandro Dave PA-C [address] [address] Assigned Surgical Provider 05/16/23 documented as of this encounter
--- OUTSIDE RECORDS SUMMARY | 2023-08-15 08:27 | XMS_ITS | Encounter Summary ---
Author Name Unknown Organization [place] Address [facility] [place] [address] Care Team Providers Care Pin Cleaner Name Role Phone Cristal Dubose MD Primary Care Provider Kiel Miles PhD Unavailable [phone] Christie Kelly PA-C Unavailable [phone] Jose Alejandro Dave PA-C Unavailable [phone] Encounter Details Date Type Department Care Team (Late st Contact Info) Description 05/06/2023 MyC Medical Advice Initial Department [facility] Social History Tobacco Use Types Packs/Day Years Used Date Smoking Tobacco: Never Smokeless Tobacco: Never Alcohol Use Standard Drinks/Week Comments Yes 0 (1 standard drink = 0.6 oz pur e alcohol) occassional Adolescent Education Answer Date Record ed Getting School Help Needed Not on file 01/18 Sex and Gender Information Value Date Recorded Sex Assigned at Female 04/21/2022 8:20 PM TERRA COTTA MASON Gender Identity Female 04/21/2022 8:20 PM TERRA COTTA MASON Sexual Orientation Straight 04/21/2022 8: 20 PM TERRA COTTA MASON documented as of this encounter Plan of Treatment Upcoming Encounters Date Type Department Care Team (Late st Contact Info) Description 10/09/2023 9:00 AM CDT Office Visit [facility] [address] [place] [phone] Jose Alejandro Dave PA-C [address] [place] [address] 10/09/2023 9:30 AM CDT Office Visit [facility] [place] [address] [facility] [address] [place] [phone] 1, Sh Wl Diet, RD documented as of this encounter Visit Diagnoses Not on filedocumented in this encounter Care Teams Pin Cleaner Relationship Specialty Start Date End Date Cristal Dubose MD [facility] [address] [place] [address] PCP - General Internal Medicine 10/13/18 Kiel Miles, PhD [employer] [facility] [address] [place] [address] Assigned Behavioral Health Provider 05/19/22 Christie Kelly PA-C [address] [place] [address] Assigned Surgical Provider 02/23/23 05/15/23 Jose Alejandro Dave PA-C [address] [place] [address] Assigned Surgical Provider 05/16/23 documented as of this encounter
--- OUTSIDE RECORDS SUMMARY | 2023-08-15 08:27 | XMS_ITS | Encounter Summary ---
Author Name Unknown Organization [place] Address [address] [place] [address] Care Team Providers Care Laborer Tan House Name Role Phone Cristal Dubose MD Primary Care Provider Kiel Miles PhD Unavailable [phone] Jose Alejandro Dave PA-C Unavailable [phone] Christie Kelly-Gideon Unavailable [phone] Jose Alejandro Dave PA-C Unavailable [phone] Encounter Details Date Type Department Care Team (Late st Contact Info) Description 02/11/2023 MyC Medical Advice [facility] [address] [place] [phone] Alesia Oreilly, CNA INSTRUCTOR Social History Tobacco Use Types Packs/Day Years Used Date Smoking Tobacco: Never Smokeless Tobacco: Never Alcohol Use Standard Drinks/Week Comments Yes 0 (1 standard drink = 0.6 oz pur e alcohol) occassional Adolescent Education Answer Date Record ed Getting School Help Needed Not on file 01/18 Sex and Gender Information Value Date Recorded Sex Assigned at Female 04/21/2022 8:20 PM ELECTRIC ACCOUNTING MACHINE OPERATOR Gender Identity Female 04/21/2022 8:20 PM ELECTRIC ACCOUNTING MACHINE OPERATOR Sexual Orientation Straight 04/21/2022 8: 20 PM ELECTRIC ACCOUNTING MACHINE OPERATOR COVID-19 Exposure Response Date Recorded In the last 10 days, have yo u been in contact with someone who was confirmed or suspected to have Coronavirus/COVID-19? No / Unsure 01/28/2023 10:22 AM CDT documented as of this encounter Plan of Treatment Upcoming Encounters Date Type Department Care Team (Late st Contact Info) Description 10/09/2023 9:00 AM CDT Office Visit [facility] [place] [address] [facility] [address] [place] [phone] Jose Alejandro Dave PA-C [address] [place] [id number] 10/09/2023 9:30 AM CDT Office Visit [facility] [place] [address] [facility] [address] [place] [phone] 1, Sh Wl Diet, RD documented as of this encounter Visit Diagnoses Not on filedocumented in this encounter Care Teams Laborer Tan House Relationship Specialty Start Date End Date Cristal Dubose MD [facility] [address] [place] [address] PCP - General Internal Medicine 10/13/18 Kiel Miles, PhD [employer] [address] [place] [address] Assigned Behavioral Health Provider 05/19/22 Jose Alejandro Dave PA-C [address] [place] [address] Assigned Surgical Provider 10/20/22 02/22/23 Christie Kelly PA-C [address] [place] [address] Assigned Surgical Provider 02/23/23 05/15/23 Jose Alejandro Dave PA-C [address] [address] Assigned Surgical Provider 05/16/23 documented as of this encounter
--- OUTSIDE RECORDS SUMMARY | 2023-08-15 08:27 | XMS_ITS | Encounter Summary ---
Author Name Unknown Organization [place] Address [facility]ly [facility], [facility] [address] Care Team Providers Care Talent Program Manager Name Role Phone Cristal Dubose MD Primary Care Provider [phone] Kiel Miles PhD Unavailable [phone] Kris Vail MD Unavailable [phone] Jose Alejandro Dave-C Unavailable [phone] Christie Kelly-C Unavailable [phone] Jose Alejandro Dave-Gideon Unavailable [phone] Encounter Details Date Type Department Care Team (Late st Contact Info) Description 08/22/2022 MyC Medical Advice [facility] [place] [address] [place] [phone] Marcela Perez, EPI [facility] [address] [place] [id number] Social History Tobacco Use Types Packs/Day Years Used Date Smoking Tobacco: Never Smokeless Tobacco: Never Sex and Gender Information Value Date Recorded Sex Assigned at Female 04/21/2022 8:20 PM TNT LINE SUPERVISOR Gender Identity Female 04/21/2022 8:20 PM TNT LINE SUPERVISOR Sexual Orientation Straight 04/21/2022 8: 20 PM TNT LINE SUPERVISOR COVID-19 Exposure Response Date Recorded In the last 10 days, have yo u been in contact with someone who was confirmed or suspected to have Coronavirus/COVID-19? No / Unsure 08/22/2022 9:45 AM CDT documented as of this encounter Plan of Treatment Upcoming Encounters Date Type Department Care Team (Late st Contact Info) Description 10/09/2023 9:00 AM CDT Office Visit [facility] [place] [address] [facility] [address] [place] [phone] Jose Alejandro Dave PA-C [address] [place] [address] 10/09/2023 9:30 AM CDT Office Visit [facility] [place] [address] [facility] [address] [place] [phone] 1, Sh Keeley Castro, LEIGHANN documented as of this encounter Visit Diagnoses Not on filedocumented in this encounter Care Teams Talent Program Manager Relationship Specialty Start Date End Date Cristal Dubose MD [facility] [address] [place] [address] PCP - General Internal Medicine 10/13/18 Kiel Miles, PhD [employer] [facility] [address] [place] [address] Assigned Behavioral Health Provider 05/19/22 Kris Vail MD [address] [place] [address] Assigned Surgical Provider 09/08/22 10/19/22 Jose Alejandro Dave PA-C [address] [place] [address] Assigned Surgical Provider 10/20/22 02/22/23 Christie Kelly PA-C [address] [place] [address] Assigned Surgical Provider 02/23/23 05/15/23 Jose Alejandro Dave PA-C [address] [address] Assigned Surgical Provider 05/16/23 documented as of this encounter
--- OUTSIDE RECORDS SUMMARY | 2023-08-15 08:27 | XMS_ITS | Encounter Summary ---
Author Name Unknown Organization [place] Address [facility] [place] [address] Care Team Providers Care Casing Crew Pusher Name Role Phone Cristal Dubose MD Primary Care Provider Kiel Miles PhD Unavailable [phone] Kris Vail MD Unavailable [phone] Jose Alejandro Dave PA-C Unavailable [phone] Christie Kelly-C Unavailable [phone] Jose Alejandro Dave PA-C Unavailable [phone] Encounter Details Date Type Department Care Team (Late st Contact Info) Description 04/23/2022 [facility] Medical Advice [facility] [address] [place] [phone] Marcela Perez, EPI [facility] [address] [place] [address] [address] [place] [id number] Social History Tobacco Use Types Packs/Day Years Used Date Smoking Tobacco: Never Smokeless Tobacco: Never Sex and Gender Information Value Date Recorded Sex Assigned at Female 04/21/2022 8:20 PM COOK SAUCE Gender Identity Female 04/21/2022 8:20 PM COOK SAUCE Sexual Orientation Straight 04/21/2022 8: 20 PM COOK SAUCE documented as of this encounter Plan of Treatment Upcoming Encounters Date Type Department Care Team (Late st Contact Info) Description 10/09/2023 9:00 AM CDT Office Visit [facility] [place] [address] [facility] [address] [place] [phone] Jose Alejandro Dave PA-C [address] [place] [address] 10/09/2023 9:30 AM CDT Office Visit [facility] [place] [address] [facility] [address] [place] [phone] 1, Sh Wl Diet, RD documented as of this encounter Visit Diagnoses Not on filedocumented in this encounter Care Teams Casing Crew Pusher Relationship Specialty Start Date End Date Cristal Dubose MD [facility] [address] [place] [address] PCP - General Internal Medicine 10/13/18 Kiel Miles, PhD [employer] [facility] [address] [facility] [place] [address] Assigned Behavioral Health Provider 05/19/22 Kris V[place] MD [address] [place] [address] Assigned Surgical Provider 09/08/22 10/19/22 Jose Alejandro Dave PA-C [address] [id number] Assigned Surgical Provider 10/20/22 02/22/23 Christie Kelly PA-C [address] [place] [address] Assigned Surgical Provider 02/23/23 05/15/23 Jose Alejandro Dave PA-C [address] [address] Assigned Surgical Provider 05/16/23 documented as of this encounter
== END 2023-08-15 08:24 | disposition home or self-care (01) ==
PROVIDERS: PCP Internal Medicine; Visit Provider Internal Medicine
DX: R53.81 Other malaise (principal); R53.83 Other fatigue; R73.03 Prediabetes; E78.2 Mixed hyperlipidemia
CPT/HCPCS: 80053; 80061; 82306; 82525; 82607; 82728; 83540; 83550; 83735; 84443; 84446; 84590; 84597; 84630

== ENCOUNTER 2023-10-22 06:02 | Day surgery (SDC) | payer BC, SELFPAY ==
[2023-10-22] VITALS (9 sets, daily range): BP systolic 111–136; BP diastolic 67–95; PULSE 54–66; RESP 16–18; TEMP 36.1–36.5; O2SAT 93–100; BMI 29.8
--- OUTSIDE RECORDS SUMMARY | 2023-10-22 06:05 | XMS_ITS | Referral Summary ---
Author Organization [place] Address [address] [place] [address]. [place] [address] Care Team Providers Care Human Resources Benefits Administrator Name Role Phone Cristal Dubose MD Primary Care Provider Kiel Miles PhD Unavailable [phone] Jose Alejandro Dave PA-C Unavailable [phone] Encounters Date Type Department Care Team Description 10/09/2023 1:00 PM CDT Lab [facility] [address] [phone] Bariatric surgery status; Postsurgical malabsorption 10/09/2023 Travel 10/09/2023 9:30 AM CDT Office Visit [facility] [address] [place] [phone] 1, Sh Wl Diet, RD Bariatric surgery status (Primary Dx); Postsurgical malabsorption; Overweight with body mass index (BMI) of 29 to 29.9 in adult 10/09/2023 9:00 AM CDT Office Visit [facility] [address] [place] [phone] Jose Alejandro Dave PA-C Overweight with body mass index (BMI) of 29 to 29.9 in adult (Primary Dx); Bariatric surgery status; Postsurgical malabsorption 10/08/2023 MyC Medical Advice [facility] [place] [address] [facility] [address] [place] [phone] Alesia Oreilly CMA 10/02/2023 MyC Medical Advice [facility] [place] [address] [facility] [address] [place] [phone] Alesia Oreilly CMA from Last 3 Months Allergies Active Allergy Reactions Criticality Noted Date [...] a week 1/2 of a stopper Active calcium carbonate (TUMS) 500 MG chewable tablet Take 1 chew tab by mouth 2 times daily Active Active Problems Problem Noted Date Diagnosed Date Overweight with body mass in dex (BMI) of 29 to 29.9 in adult 02/18/2023 Last Assessment & Plan: Patient was congratulated on wt loss success thus far. Healthy habits to assist with further weight loss were discussed. 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 Labs ordered per protocol. Prediabetes 10/13/2018 Last Assessment & Plan: Last HgA1C 2019 5.6. Recheck HgA1C at 1 year. Essential [...] Sex Assigned at Female 04/21/2022 8:20 PM OUTSIDE PLANT CABLE ENGINEER Gender Identity Female 04/21/2022 8:20 PM OUTSIDE PLANT CABLE ENGINEER Sexual Orientation Straight 04/21/2022 8: 20 PM OUTSIDE PLANT CABLE ENGINEER Last Filed Vital Signs Vital Sign Reading Time Taken Comments Blood Pressure 114/76 10/09/2023 7:40 AM CDT Pulse 56 10/09/2023 7:40 AM CDT Temperature 36.8 ??C (98.2 ??F) 10/25/2022 11:50 AM C DT Respiratory Rate 16 10/25/2022 11:50 AM CDT Oxygen Saturation 98% 10/09/2023 7:40 AM CDT Inhaled Oxygen Concentration - - Weight 103 kg (227 lb) 10/09/2023 7:40 AM CDT Height 185.4 cm (6' 1) 10/09/2023 7:40 AM CDT Body Mass Index 29.95 10/09/2023 7:40 AM CDT Plan of Treatment Upcoming Encounters Date Type Department Care Team (Late st Contact Info) Description 03/25/2024 9:00 AM OUTSIDE PLANT CABLE ENGINEER Office Visit [facility] [place] [address] [facility] [address] [place] [phone] Jose Alejandro Dave PA-C [address] [address] 03/25/2024 9:30 AM OUTSIDE PLANT CABLE ENGINEER Office Visit [facility] [place] [address] [facility] [address] [place] [phone] 1, Sh Wl Diet, RD Procedures Procedure Name Priority Date/Time Associated Diagnosis Comments VITAMIN A Routine 10/09/2023 10:13 AM CDT Postsurgical malabsorption FERRITIN Routine 10/09/2023 10:13 AM CDT Bariatric surgery status Postsurgical malabsorption IRON AND IRON BINDING CAPACITY Routine 10/09/2023 10:13 AM CDT Bariatric surgery status Postsurgical malabsorption PARATHYROID HORMONE INTACT Routine 10/09/2023 10:13 AM CDT Bariatric surgery status Postsurgical malabsorption VITAMIN D DEFICIENCY SCREENING Routine 10/09/2023 10:13 AM CDT Bariatric surgery status Postsurgical malabsorption VITAMIN B12 Routine 10/09/2023 10:13 AM CDT Bariatric surgery status Postsurgical malabsorption CBC WITH PLATELETS Routine 10/09/2023 10 :13 AM CDT Bariatric surgery status Postsurgical malabsorption GLUCOSE Routine 10/12/2022 7:31 AM CDT LIPID PROFILE Routine 09/16/2018 from Last 3 Months or Most Recently Relevant to Health Maintenance Results * Vitamin D Screen (10/09/2023 10:13 AM CDT) Vitamin D, Total (25-Hydroxy) 39 20 - 50 ng/mL 10/09/2023 6:18 PM CDT [facility] Comment:optimum levels Blood STRUCTURE OF LEFT UPPER LIMB / Unknown Venipuncture / Unknown 10/09/2023 10:13 AM CDT 10/09/2023 10:13 AM CDT Narrative [facility] - 10/09/2023 6:18 PM CDT Season, race, dietary intake, and treatment affect the concentration of 67-fdxjwmv-Mdjsmvo D. Values may decrease during winter months and increase during summer months. Vitamin D determination is routinely performed by an immunoassay specific for 25 hydroxyvitamin D3. ??If an individual is on vitamin D2(ergocalciferol) supplementation, please specify 25 OH vitamin D2 and D3 level determination by LCMSMS test VITD23. Jose Alejandro Dave PA-C LAB - BLOOD ORD ERABLES LABORATORY [facility] [address] [facility], [address] [place] [address] * Vitamin A (10/09/2023 10:13 AM CDT) Vitamin A 0.66 0.30 - 1.20 mg/L 10/11/2023 7:52 AM CDT [facility] Retinol Palmitate <0.02 0.00 - 0.10 mg/L 10/11/2023 7:52 AM CDT [facility] Vitamin A Interp Normal 10/11/19 24 7:52 AM CDT [facility] Comment: This test was developed and its performance characteristics determined by [facility]. It has not been cleared or approved by the [place] Food and Drug Administration. This test was performed in a CLIA certified laboratory and is intended for clinical purposes. Performed By: [facility] [address] [place] [address] Speeder Hand: Oni Atwood MD, PhD CLIA Number: [id number] Blood STRUCTURE OF LEFT UPPER LIMB / Unknown Venipuncture / Unknown 10/09/2023 10:13 AM CDT 10/09/2023 10:13 AM CDT Jose Alejandro Dave PA-C LAB - BLOOD ORD ERAJOVITA Performing Organization Address City/[facility]/ZIP Co de Phone Number [facility] [address] [place] [address], [place] [phone] * Parathyroid Hormone Intact (10/09/2023 10:13 AM CDT) Parathyroid Hormone Intact 51 15 - 65 pg/mL 10/09/2023 10:57 AM CDT LABORATORY Blood STRUCTURE OF LEFT UPPER LIMB / Unknown Venipuncture / Unknown 10/09/2023 10:13 AM CDT 10/09/2023 10:13 AM CDT Narrative LABORATORY - 10/09/2023 10:57 AM CDT This result was obtained with the [employer] Elecsys PTH STAT assay. This reference range differs from PTH assays used in other [facility] laboratories. Jose Alejandro Dave PA-C LAB - BLOOD ORD ERABLES LABORATORY [facility] [address], [address] [place] [address], [place] [phone] * Iron and Iron Binding Capacity (10/09/2023 10:13 AM CDT) [facility] Iron 52 37 - 145 ug/dL 10/09/2023 11:04 AM CDT LABORATORY Iron Binding Capacity 261 240 - 430 ug/dL 10/09/2023 11:04 AM CDT LABORATORY Iron Sat Index 20 15 - 46 % 10/09/2023 11:04 AM CDT LABORATORY Blood STRUCTURE OF LEFT UPPER LIMB / Unknown Venipuncture / Unknown 10/09/2023 10:13 AM CDT 10/09/2023 10:13 AM CDT Jose Alejandro Dave PA-C LAB - BLOOD ORD ERABLES LABORATORY [facility] [address], [address] [place] [address], [place] [phone] * Ferritin (10/09/2023 10:13 AM CDT) Pathologist [facility] Ferritin 52 11 - 328 ng/mL 10/09/2023 6:18 PM CDT [facility] Blood STRUCTURE OF LEFT UPPER LIMB / Unknown Venipuncture / Unknown 10/09/2023 10:13 AM CDT 10/09/2023 10:13 AM CDT Jose Alejandro Dave PA-C LAB - BLOOD ORD ERAJOVITA [facility] [address] [facility], [address] * Vitamin B12 (10/09/2023 10:13 AM CDT) Pathologist [facility] Vitamin B12 1,148 232 - 1,245 pg/mL 10/09/2023 6:18 PM CDT [facility] Blood STRUCTURE OF LEFT UPPER LIMB / Unknown Venipuncture / Unknown 10/09/2023 10:13 AM CDT 10/09/2023 10:13 AM CDT Jose Alejandro Dave PA-C LAB - BLOOD ORD ASHLEY Performing Organization Address City/[facility] Co de Phone Number [facility] [place] [address] [facility], [address] * CBC with platelets (10/09/2023 10:13 AM CDT) [facility] WBC Count 5.8 4.0 - 11.0 10e3/uL 10/09/2023 10:31 AM CDT LABORATORY RBC Count 4.11 3.80 - 5.20 10e6/uL 10/09/2023 10:31 AM CDT LABORATORY Hemoglobin 13.5 11.7 - 15.7 g/dL 10/09/2023 10:31 AM CDT LABORATORY Hematocrit 39.1 35.0 - 47.0 % 10/09/2023 10:31 AM CDT LABORATORY MCV 95 78 - 100 fL 10/09/2023 10:31 AM CDT LABORATORY MCH 32.8 26.5 - 33.0 pg 10/09/2023 10:31 AM CDT LABORATORY MCHC 34.5 31.5 - 36.5 g/dL 10/09/2023 10:31 AM CDT LABORATORY RDW 12.2 10.0 - 15.0 % 10/09/2023 10:31 AM CDT LABORATORY Platelet Count 278 150 - 450 10e3/uL 10/09/2023 10:31 AM CDT LABORATORY Blood STRUCTURE OF LEFT UPPER LIMB / Unknown Venipuncture / Unknown 10/09/2023 10:13 AM CDT 10/09/2023 10:13 AM CDT Jose Alejandro Dave PA-C LAB - BLOOD ORD ERABLES LABORATORY [facility] [address], [address] [place] [address], [place] [phone] * Glucose (10/12/2022 7:31 AM CDT) Glucose 99 70 - 99 mg/dL 10/12/2022 8:17 AM CDT LABORATORY Blood STRUCTURE OF RIGHT UPPER LIMB / Unknown Venipuncture / Unknown 10/12/2022 7:31 AM CDT 10/12/2022 7:45 AM CDT Kris Vail MD LAB - BLOOD ORDERABL ES LABORATORY [facility] [address], [address] [place] [address], [place] [phone] * (ABNORMAL) Lipid Profile (09/16/2018) Cholesterol 259(A) 90 - 200 MG/DL [facility] Triglycerides 167 40 - 197 MG/DL [facility] HDL Cholesterol 68 >=50 mg/dL [facility] LDL Cholesterol Calculated 158(H) <100 mg/dL [facility] Blood specimen (specimen) 09/16/2018 Narrative [facility] - 09/16/2018 LAB RESULTS GENOA Provider Outside LAB - BLOOD ORDERABL ES [facility] [address] [place] [address], [place] [phone] from Last 3 Months or Most Recently Relevant to Health Maintenance Advance Directives For more information, please contact: [phone] * Full Code (Latest Code Status on File) Date Activated Date Inactivated Comments 10/11/2022 11:26 AM 10/12/2022 1:34 PM All basic a nd advanced life-sustaining interventions are performed as appropriate Question Answer Comments Code status determined by: Unable to dis cuss and no AD/POLST on file; continue PREVIOUSLY ORDERED code status Care Teams Human Resources Benefits Administrator Relationship Specialty Start Date End Date Cristal Dubose MD [facility] [address] [place] [address] PCP - General Internal Medicine 10/13/18 Kiel Miles, PhD [employer] [facility] [address] [place] [address] Assigned Behavioral Health Provider 05/19/22 Jose Alejandro Dave PA-C [address] [address] Assigned Surgical Provider 05/16/23
--- OUTSIDE RECORDS SUMMARY | 2023-10-22 06:05 | XMS_ITS | Clinical Summary ---
Author Organization [facility] Address [place], [place] [address] Care Team Providers Care Floor Scraper Name Role Phone Cristal Dubose MD Primary Care Provider [phone] Allergies Active Allergy Reactions Criticality Noted Date [...] Comments Blood Pressure 129/86 05/16/2022 11:25 AM PRIVACY ATTORNEY Pulse 66 05/16/2022 11:25 AM PRIVACY ATTORNEY Temperature 36.8 ??C (98.3 ??F) 04/24/2022 1:17 PM CS T Respiratory Rate 16 08/15/2020 5:15 PM CDT Oxygen Saturation 98% 05/16/2022 11:25 AM PRIVACY ATTORNEY Inhaled Oxygen Concentration - - Weight 134.3 kg (296 lb) 04/12/2021 9:44 AM PRIVACY ATTORNEY Height 185.4 cm (6' 0.99) 11/09/2020 12:10 [...] this topic Medical Devices Implanted Type Area [employer] Sales Representative Device Identifier Shelf Expiration Date Model / Serial / Lot Screw Bio-Tenodisis [id number] - [id number] Implanted:Qty: 1 on 09/03/[address] [facility] Left: Ankle [employer] 05/23/2009 AR-1555B# / / [id number] Screw Bio-Tenodesis [id number] - [id number] Implanted:Qty: 1 on 09/03/[address] [facility] Left: Ankle [employer] 01/20/2010 AR-1547B# / / [id number] Implant On The [facility] - [id number] Implanted:Qty: 1 on 09/03/[address] [facility] Left: Ankle [employer] 08/16/2013 1111A-FF# / / [id number] Description:Tibialis Anterio r (W) Tissue #[id number](A) Frozen, Irrad Tendon Ant Tibialis 1111a-Ff - [id number] Implanted:Qty: 1 on 12/30/[address] [facility] Right: Ankle [employer] 11/18/2013 1111A-FF# / / TISSUE ID#: [id number] Screw Bio-Tenodesis [id number] - [id number] Implanted:Qty: 1 on 12/30/[address] [facility] Right: Ankle [employer] 09/20/2010 AR-1547B# / / [id number] Screw Bio-Tenodesis [id number] - [id number] Implanted:Qty: 1 on 12/30/[address] [facility] Right: Ankle [employer] 01/20/2010 AR-1547B# / / [id number] Ar[employer]rex Pip Implant, Straight, 12 Mm With Intrumentation Implanted:Qty: 2 on 08/15/2020 by Aj Milian DPM at [facility] Bilateral : Foot [employer] 05/22/2025 AR-4158DS -12S / AR-4158DS -12S / [id number] Ar[employer] Pip Implant, Straight, 12 Mm With Intrumentation Implanted:Qty: 1 on 08/15/2020 by Aj Milian DPM at [facility] Right: Foot [employer] 03/21/2025 AR-4158DS -12S / / [id number] Procedures Procedure Name Priority Date/Time Associated Diagnosis Comments XR MAMMO BILAT DIAG FFDM (IA) Routine 08/25/2007 2:29 PM CDT Signs And Symptoms In Breast Other Lump Or Mass In Breast INTELLIGENCE CHIEF THIN PREP PAP SCREEN IMAGED Routine 07/29/2007 [...] Benign Finding. Eleonora Magaña MD MAMMO * INTELLIGENCE CHIEF THIN PREP PAP SCREEN IMAGED (07/29/2007 3:17 PM CDT) CYTOLOGY ??CYTOPATHOLOGY REPORT ??[facility] ?? Status: Final Report ? [id number] ?? CLINICAL INFORMATION ?LMP ? : 07/16/07 ?Previous Pap Date ? : 07/03/06 ?Previous PAP Dx ? : Negative for intraepithelial lesion or ?malignancy. ?Previous [place]/bx date : None ?Previous Colposcopy/Bx: None ?Hormone Usage ? : BCP/OCP/Patch/Ring ?Menstrual Status ?: Regular Periods ?Appearance of Cervix ??: Not given ?[place]/Bx done today ?: No ?HPV Request ? [...] 07/29/07 ?? ACCESSIONED: 07/29/07 ?? SIGNED: 08/06/07 [facility] Cervical (Cervical) 07/29/2007 3:17 PM CDT 07/29/2007 3:16 PM CDT Zoë Martinez MD PATHOLOGY/CYTOLOGY [facility] INTERNAL ZIP [address] [address] * LIPID PANEL (10/20/2004 9:47 AM CDT) CHOLESTEROL,TOTAL 186 110 - 199 mg/dL [facility] TRIGLYCERIDES 90 40 - 149 mg/dL [facility] HDL CHOLESTEROL 64 41 - 95 mg/dL [facility] CHOL/HDL RATIO 2.91 <4.51 [facility] LDL CHOLESTEROL 104 60 - 130 mg/dL [facility] PATIENT STATUS Fasting [facility] 10/20/2004 9:47 AM CDT 10/20/2004 12:30 PM CDT Zoë Martinez MD CHEMISTRY [facility] SENDOUT INTERNAL ZIP [address] [address] [place] [address] from Last 3 Months or Most Recently Relevant to Health Maintenance Advance Directives * Full Code (Latest Code Status on File) Date Activated Date Inactivated Comments 08/15/2020 11:45 AM 08/15/2020 7:45 PM Question Answer Comments Code Status Discussion: Discussed * Full Code Date Activated Date Inactivated Comments 08/15/2020 11:45 AM 08/15/2020 11:45 AM Question Answer Comments Code Status Discussion: Discussed Care Teams Floor Scraper Relationship Specialty Start Date End Date Cristal Dubose MD PCP - General 07/28/08
--- OUTSIDE RECORDS SUMMARY | 2023-10-22 06:05 | XMS_ITS | Clinical Summary ---
Author Organization [place] Address [address] [place] [address] Care Team Providers Care Resident Care Director Name Role Phone Cristal Dubose MD Primary Care Provider Kiel Miles PhD Unavailable [phone] Jose Alejandro Dave PA-C Unavailable [phone] Allergies Active Allergy Reactions Criticality Noted Date [...] prerna discontinue. BP controlled. Premature menopause 10/13/2018 Encounters Date Type Department Care Team Description 10/09/2023 1:00 PM CDT Lab [facility] [address] [phone] Bariatric surgery status; Postsurgical malabsorption 10/09/2023 9:30 AM CDT Office Visit [facility] [place] [address] [address] [phone] 1, Sh Wl Diet, RD Bariatric surgery status (Primary Dx); Postsurgical malabsorption; Overweight with body mass index (BMI) of 29 to 29.9 in adult 10/09/2023 9:00 AM CDT Office Visit [facility] [place] [address] [address] [phone] Jose Alejandro Dave PA-C Overweight with body mass index (BMI) of 29 to 29.9 in adult (Primary Dx); Bariatric surgery status; Postsurgical malabsorption 10/09/2023 Travel 10/08/2023 MyC Medical Advice [facility] [place] [id number] [facility] [address] [phone] Alesia Oreilly CMA 10/02/2023 MyC Medical Advice [facility] [place] [address] [facility] [address] [phone] Alesia Oreilly CMA from Last 3 Months Family History Medical History Relation Comments Coronary [...] Sex Assigned at Female 04/21/2022 8:20 PM PAYROLL MASTER Gender Identity Female 04/21/2022 8:20 PM PAYROLL MASTER Sexual Orientation Straight 04/21/2022 8: 20 PM PAYROLL MASTER Last Filed Vital Signs Vital Sign Reading [...] st Contact Info) Description 03/25/2024 9:00 AM PAYROLL MASTER Office Visit [facility] [place] [address] [facility] [address] [phone] Jose Alejandro Dave PA-C [address] [address] 03/25/2024 9:30 AM PAYROLL MASTER Office Visit [facility] [place] [address] [facility] [address] [phone] 1, Sh Wl Diet, RD Health Maintenance [...] intake, and treatment affect the concentration of 52-swuowtj-Lvmjanq D. Values may decrease during winter months and increase during summer months. Vitamin D determination is routinely performed by an immunoassay specific for 25 hydroxyvitamin D3. ??If an individual is on vitamin D2(ergocalciferol) supplementation, please specify 25 OH vitamin D2 and D3 level determination by LCMSMS test VITD23. Jose Alejandro Dave PA-C LAB - BLOOD ORD ERAJOVITA [facility] [address] [facility], [address] [phone] * Vitamin A (10/09/2023 10:13 AM CDT) Vitamin A 0.66 0.30 - 1.20 mg/L 10/11/2023 7:52 AM CDT [facility] Retinol Palmitate <0.02 0.00 - 0.10 mg/L 10/11/2023 7:52 AM CDT [facility] Vitamin A Interp Normal 10/11/19 7:52 AM CDT [employer] Comment: This test was developed and its performance characteristics determined by [facility]. It has not been cleared or approved by the [place] Food and Drug Administration. This test was performed in a CLIA certified laboratory and is intended for clinical purposes. Performed By: [facility] [address] [place] [address] Cash Office Worker: Oni Atwood MD, PhD CLIA Number: [id number] Blood STRUCTURE OF LEFT UPPER LIMB / Unknown Venipuncture / Unknown 10/09/2023 10:13 AM CDT 10/09/2023 10:13 AM CDT Jose Alejandro Dave PA-C LAB - BLOOD ORD ERAJOVITA [facility] [address] [place] [address], [facility] [phone] * Parathyroid Hormone Intact (10/09/2023 10:13 AM [...] differs from PTH assays used in other [facility] laboratories. Jose Alejandro Dave PA-C LAB - BLOOD ORD ERABLES Performing Organization Address City/[facility]/ZIP Co de Phone Number [facility] [address] floor, [address] [place] [address], [place] [phone] * Iron and Iron Binding Capacity (10/09/2023 10:13 AM CDT) Iron 52 37 - 145 ug/dL 10/09/2023 [...] - BLOOD ORD ERABLES Performing Organization Address City/[facility]/ZIP Co de Phone Number [facility] [address] floor, [address] [place] [address], [facility] [phone] * Ferritin (10/09/2023 10:13 AM CDT) Ferritin 52 11 - 328 ng/mL 10/09/2023 6:18 PM CDT [facility] Blood STRUCTURE OF LEFT UPPER LIMB / Unknown Venipuncture / Unknown 10/09/2023 10:13 AM CDT 10/09/2023 10:13 AM CDT Jose Alejandro Dave PA-C LAB - BLOOD ORD ERABLES [facility] [address] [facility], [address] [phone] * Vitamin B12 (10/09/2023 10:13 AM CDT) [facility] Vitamin B12 1,148 232 - 1,245 pg/mL 10/09/2023 6:18 PM CDT [facility] Blood STRUCTURE OF LEFT UPPER LIMB / Unknown Venipuncture / Unknown 10/09/2023 10:13 AM CDT 10/09/2023 10:13 AM CDT Jose Alejandro Dave PA-C LAB - BLOOD ORD ERABLES [facility]ATORY [facility] [address] [facility], [address] [phone] * CBC with platelets (10/09/2023 10:13 AM CDT) [facility] WBC Count 5.8 4.0 - 11.0 10e3/uL [...] PA-C LAB - BLOOD ORD ERABLES LABORATORY [facility] [address] floor, [address] [place] [address], [facility] [phone] * Glucose (10/12/2022 7:31 AM CDT) Glucose 99 70 - 99 mg/dL 10/12/2022 8:17 AM CDT LABORATORY Blood STRUCTURE OF RIGHT UPPER LIMB / Unknown Venipuncture / Unknown 10/12/2022 7:31 AM CDT 10/12/2022 7:45 AM CDT Kris Vail MD LAB - BLOOD ORDERABL ES Performing Organization Address City/[facility]/ZIP Co de Phone Number LABORATORY [facility] [address], [address] [place] [address], [facility] [phone] * (ABNORMAL) Lipid Profile (09/16/2018) Cholesterol 259(A) 90 - 200 MG/DL [facility] Triglycerides 167 40 - 197 MG/DL [facility] HDL Cholesterol 68 >=50 mg/dL [facility] LDL Cholesterol Calculated 158(H) <100 mg/dL [facility] Blood specimen (specimen) 09/16/2018 Narrative [facility] - 09/16/2018 LAB RESULTS COEBURN Provider Outside LAB - BLOOD ORDERABL ES [facility] [address] [place] [address], [place] [phone] from Last 3 Months or Most Recently Relevant to Health Maintenance Advance Directives For more information, please contact: [phone] * Full Code (Latest Code Status on File) Date Activated Date Inactivated Comments 10/11/2022 11:26 AM 10/12/2022 1:34 PM All basic a nd advanced life-sustaining interventions are performed as appropriate Question Answer Comments Code status determined by: Unable to dis cuss and no AD/POLST on file; continue PREVIOUSLY ORDERED code status Care Teams Resident Care Director Relationship Specialty Start Date End Date Cristal Dubose MD [facility] [address] [place] [address] PCP - General Internal Medicine 10/13/18 Kiel Miles, PhD [facility] [facility] [address] [id number] Assigned Behavioral Health Provider 05/19/22 Jose Alejandro Dave PA-C [address] [address] Assigned Surgical Provider 05/16/23
--- OUTSIDE RECORDS SUMMARY | 2023-10-22 06:06 | XMS_ITS | Encounter Summary ---
Author Organization [place] Address [address] [place] [address]. [place] [address] Care Team Providers Care Shank Cutter Name Role Phone Cristal Dubose MD Primary Care Provider Kiel Miles PhD Unavailable [phone] Kris Vail MD Unavailable [phone] Jose Alejandro Dave-C Unavailable [phone] Christie Kelly-C Unavailable [phone] Jose Alejandro Dave-C Unavailable [phone] Encounter Details Date Type Department Care Team (Late st Contact Info) Description 06/28/2022 MyC Medical Advice [facility] [address] [place] [phone] Chepe Arellano MD [address] [facility] [address] [place] [address] Social History Tobacco Use Types Packs/Day Years Used Date Smoking Tobacco: Never Smokeless Tobacco: Never Sex and Gender Information Value Date Recorded Sex Assigned at Female 04/21/2022 8:20 PM STATISTICS INTERN Gender Identity Female 04/21/2022 8:20 PM STATISTICS INTERN Sexual Orientation Straight 04/21/2022 8: 20 PM STATISTICS INTERN COVID-19 Exposure Response Date Recorded In the last 10 days, have yo u been in contact with someone who was confirmed or suspected to have Coronavirus/COVID-19? No / Unsure 06/25/2022 9:58 AM STATISTICS INTERN documented as of this encounter Plan of Treatment Upcoming Encounters Date Type Department Care Team (Late st Contact Info) Description 03/25/2024 9:00 AM STATISTICS INTERN Office Visit [facility] [place] [phone] [facility] [address] [phone] Jose Alejandro Dave PA-C [address] [place] [id number] 03/25/2024 9:30 AM STATISTICS INTERN Office Visit [facility] [address] [phone] 1, Sh Wl Diet, RD documented as of this encounter Visit Diagnoses Not on filedocumented in this encounter Care Teams Shank Cutter Relationship Specialty Start Date End Date Cristal Dubose MD [facility] [address] [place] [address] PCP - General Internal Medicine 10/13/18 Kiel Miles, PhD [employer] [facility] [address] [address] Assigned Behavioral Health Provider 05/19/22 Kris Vail MD [address] [address] Assigned Surgical Provider 09/08/22 10/19/22 Jose Alejandro Dave PA-C [address] [place] [id number] Assigned Surgical Provider 10/20/22 02/22/23 Christie Kelly PA-C [address] [address] Assigned Surgical Provider 02/23/23 05/15/23 Jose Alejandro Dave PA-C [address] [address] Assigned Surgical Provider 05/16/23 documented as of this encounter
--- OUTSIDE RECORDS SUMMARY | 2023-10-22 06:06 | XMS_ITS | Encounter Summary ---
Author Organization [place] Address [address] [place] [address] Care Team Providers Care Coyote Hunter Name Role Phone Cristal Dubose MD Primary Care Provider Kiel Miles PhD Unavailable [phone] Jose Alejandro Dave PA-C Unavailable [phone] Encounter Details Date Type Department Care Team (Late st Contact Info) Description 10/09/2023 9:30 AM CDT Office Visit [facility] [address] [place] [address] Bariatric surgery status (Primary Dx); Postsurgical malabsorption; Overweight with body mass index (BMI) of 29 to 29.9 in adult Social History Tobacco Use Types Packs/Day Years Used Date Smoking Tobacco: Never Smokeless Tobacco: Never Alcohol Use Standard Drinks/Week Comments Yes 0 (1 standard drink = 0.6 oz pur e alcohol) occassional Adolescent Education Answer Date Record ed Getting School Help Needed Not on file 01/18 Sex and Gender Information Value Date Recorded Sex Assigned at Female 04/21/2022 8:20 PM GLASSWARE MAKER DEMONSTRATOR Gender Identity Female 04/21/2022 8:20 PM GLASSWARE MAKER DEMONSTRATOR Sexual Orientation Straight 04/21/2022 8: 20 PM GLASSWARE MAKER DEMONSTRATOR documented as of this encounter Patient Instructions * Patient Instructions* Farshad Dimas RD, LD - 10/09/2023 9:30 AM CDT Hi Teresa- It was great to visit with you and learn about your progress. Below are the goals we discussed. GOALS: Transition to decaffeinated coffee Replace snacking with 1-2 protein drinks or 16 oz milk Schedule a walk 3 X per week for 30 minutes Focus on alternatives to emotional eating (art, read, podcasts, exercise) Thanks! Farshad Dimas RD, LD [facility] documented in this encounter Progress Notes * Farshad Dimas RD, LD - 10/09/2023 9:30 AM CDT NUTRITION POST OP APPOINTMENT DATE OF VISIT: October 05, 2023 Teresa Bingham 1965 female [id number] 57 year old ASSESSMENT: REASON FOR VISIT: Teresa is a 57 year old year old female presents today for 1 year PO nutrition follow-up appointment.Patient is accompanied by self. DIAGNOSIS: Status post gastric sleeve surgery. Obesity Overweight BMI 25-29.9 ANTHROPOMETRICS: Initial Weight: 299.2 lb Height: 6'1 Current Weight: 227 lb BMI: 29.95 kg/(m^2). VITAMINS AND MINERALS: 1 Multivitamin with Minerals (Bariatric Pal One a Day with 18 mg iron- HS) 500 mg Calcium With Vitamin D - TID - AM, lunch, dinner 5000 mcg Vitamin B-12 sublingual - y9m-cboe be stopping based on labs Not getting periods Multivitamin / mineral has adequate- vitamin d, thiamin and iron NUTRITION HISTORY: Breakfast: 30 oz cold carlton with vanilla cream Lunch: ` 3 oz chicken, green beans or peas Supper: spaghetti with turkey meatballs, dessert Snacks: pretzels or chips-2X per day Fluids consumed: 60-120 oz water, 1-30 oz cold brew coffee with vanilla sweet cream, 8 oz -1% milk,no ETOH Consuming liquid calories: Yes Protein intake: 40-50 grams/day Tolerate regular texture food: No Any foods not tolerated details: Yes If any food not tolerated: rice Portion size: 1 cup or more Take 20-30 minutes to consume each meal: No Eat protein foods first: Yes Fluids and meals separate by at least 30 minutes: Yes Chew foods thoroughly: No Tolerating diet: Yes Drinking high protein supplements: No Consuming snacks per day: 2 Additional Information: More stress eating in the past 2 months. Lowest weight was 218 pounds and patient is concerned about weight gain. Lots off snack foods available at work. [facility] has resulted in eating more meals alone. PHYSICAL ACTIVITY: Type: no intentional DIAGNOSIS: Previous Nutrition Diagnosis: Altered gastrointestinal function related to alteration in gastrointestinal structure as evidenced by history of gastric sleeve surgery.- no change Previous goals: Gradually increase fiber to 10-15 grams per day Eat breakfast daily-not met Aim for 75-100 grams of protein /day (1-1.3 g/ kg IBW)-not met Switch to decaf coffee or decaf tea-not met Increase calcium (250 mg ) 3X per day-met, but different dose Current Nutrition Diagnosis: Altered gastrointestinal function related to alteration in gastrointestinal structure as evidenced by history of gastric sleeve surgery. INTERVENTION: Nutrition Prescription: Eat 3 meals a day at regular intervals. Consume 60-90 grams of protein daily. Follow post-surgical vitamin and mineral protocol. Assessed learning needs and learning preferences. Discussed and provided: Building a Healthy Relationship with Food GOALS: Transition to decaffeinated coffee Replace snacking with 1-2 protein drinks or 16 oz milk Schedule a walk 3 X per week for 30 minutes Focus on alternatives to emotional eating (art, read, podcasts, exercise) Implementation: Discussed progress toward previous goals; reinforced importance of following bariatric lifestyle changes. NUTRITION MONITORING AND EVALUATION: Anticipated compliance: fair-good Verbalized fair-good understanding. Follow up: Patient to follow up in 6 months. TIME SPENT WITH PATIENT: [address], LD [facility] documented in this encounter Plan of Treatment Upcoming Encounters Date Type Department Care Team (Late st Contact Info) Description 03/25/2024 9:00 AM GLASSWARE MAKER DEMONSTRATOR Office Visit [facility] [place] [phone] Jose Alejandro Dave PA-C [address] [place] [address] [address] [address] 03/25/2024 9:30 AM GLASSWARE MAKER DEMONSTRATOR Office Visit [facility] [place] [address] [facility] [address] [phone] 1, Sh Wl Gloria, RD documented as of this encounter Visit Diagnoses Diagnosis Bariatric surgery status- Primary 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 Overweight with body mass index (BMI) of 29 to 29.9 in adult documented in this encounter Care Teams Coyote Hunter Relationship Specialty Start Date End Date Cristal Dubose MD [facility] [address] [place] [address] PCP - General Internal Medicine 10/13/18 Kiel Miles, PhD [employer] [facility] [address] [address] Assigned Behavioral Health Provider 05/19/22 Jose Alejandro Dave PA-C [address] [address] Assigned Surgical Provider 05/16/23 documented as of this encounter
--- OUTSIDE RECORDS SUMMARY | 2023-10-22 06:06 | XMS_ITS | Encounter Summary ---
Author Organization [place] Address [address] [place] [address]. [place] [address] Care Team Providers Care Fashion Show Director Name Role Phone Cristal Dubose MD Primary Care Provider Kiel Miles PhD Unavailable [phone] Kris Vail MD Unavailable [phone] Jose Alejandro Dave-C Unavailable [phone] Christie Kelly-C Unavailable [phone] Jose Alejandro Dave-C Unavailable [phone] Encounter Details Date Type Department Care Team (Late st Contact Info) Description 06/25/2022 [facility] Nutrition Services [address] [place] [address] , [address] [place] [phone] [facility] Social History Tobacco Use Types Packs/Day Years Used Date Smoking Tobacco: Never Smokeless Tobacco: Never Sex and Gender Information Value Date Recorded Sex Assigned at Female 04/21/2022 8:20 PM AUTOMOTIVE PARTS INTERPRETER Gender Identity Female 04/21/2022 8:20 PM AUTOMOTIVE PARTS INTERPRETER Sexual Orientation Straight 04/21/2022 8: 20 PM AUTOMOTIVE PARTS INTERPRETER COVID-19 Exposure Response Date Recorded In the last 10 days, have yo u been in contact with someone who was confirmed or suspected to have Coronavirus/COVID-19? No / Unsure 06/25/2022 9:58 AM AUTOMOTIVE PARTS INTERPRETER documented as of this encounter Plan of Treatment Upcoming Encounters Date Type Department Care Team (Late st Contact Info) Description 03/25/2024 9:00 AM AUTOMOTIVE PARTS INTERPRETER Office Visit [facility] [place] [address] [facility] [address] [place] [phone] Jose Alejandro Dave PA-C [address] [place] [id number] 03/25/2024 9:30 AM AUTOMOTIVE PARTS INTERPRETER Office Visit [facility] [place] [address] [facility] [address] [place] [phone] 1, Sh Wl Diet, RD documented as of this encounter Visit Diagnoses Not on filedocumented in this encounter Care Teams Fashion Show Director Relationship Specialty Start Date End Date Cristal Dubose MD [facility] [address] [place] [address] PCP - General Internal Medicine 10/13/18 Kiel Miles, PhD [facility] [employer] [facility] [address] [place] [address] Assigned Behavioral Health Provider 05/19/22 Kris Vail MD [address] [place] [address] Assigned Surgical Provider 09/08/22 10/19/22 Jose Alejandro Dave PA-C [address] [place] [address] Assigned Surgical Provider 10/20/22 02/22/23 Christie Kelly PA-C [address] [place] [address] Assigned Surgical Provider 02/23/23 05/15/23 Jose Alejandro Dave PA-C [address] [address] Assigned Surgical Provider 05/16/23 documented as of this encounter
--- OUTSIDE RECORDS SUMMARY | 2023-10-22 06:06 | XMS_ITS | Encounter Summary ---
Author Organization [place] Address [address] [place] [address] Care Team Providers Care Sde Name Role Phone Cristal Dubose MD Primary Care Provider Kiel Miles PhD Unavailable [phone] Jose Alejandro Dave-C Unavailable [phone] Christie Kelly-C Unavailable [phone] Jose Alejandro Dave-Gideon Unavailable [phone] Encounter Details Date Type Department Care Team (Late st Contact Info) Description 01/24/2023 MyC Medical Advice [facility] [address] [place] [phone] Alesia Oreilly, ACCOUNT EXECUTIVE METALWORKING Social History Tobacco Use Types Packs/Day Years Used Date Smoking Tobacco: Never Smokeless Tobacco: Never Alcohol Use Standard Drinks/Week Comments Yes 0 (1 standard drink = 0.6 oz pur e alcohol) occassional Adolescent Education Answer Date Record ed Getting School Help Needed Not on file 01/18 Sex and Gender Information Value Date Recorded Sex Assigned at Female 04/21/2022 8:20 PM MAINTENANCE OPERATOR Gender Identity Female 04/21/2022 8:20 PM MAINTENANCE OPERATOR Sexual Orientation Straight 04/21/2022 8: 20 PM MAINTENANCE OPERATOR documented as of this encounter Plan of Treatment Upcoming Encounters Date Type Department Care Team (Late st Contact Info) Description 03/25/2024 9:00 AM MAINTENANCE OPERATOR Office Visit [facility] [place] [address] [facility] [address] [place] [phone] Jose Alejandro Dave PA-C [address] [place] [address] [id number] 03/25/2024 9:30 AM MAINTENANCE OPERATOR Office Visit [facility] [place] [address] [facility] [address] [place] [phone] 1, Sh Wl Diet, RD documented as of this encounter Visit Diagnoses Not on filedocumented in this encounter Care Teams Sde Relationship Specialty Start Date End Date Cristal Dubose MD [facility] [address] [place] [address] PCP - General Internal Medicine 10/13/18 Kiel Miles, PhD GR[facility] AND [employer] [facility] [address] [place] [address] Assigned Behavioral Health Provider 05/19/22 Jose Alejandro Dave PA-C [address] [place] [address] Assigned Surgical Provider 10/20/22 02/22/23 Christie Kelly PA-C [address] [address] Assigned Surgical Provider 02/23/23 05/15/23 Jose Alejandro Dave PA-C [address] [place] [place] [address] Assigned Surgical Provider 05/16/23 documented as of this encounter
--- OUTSIDE RECORDS SUMMARY | 2023-10-22 06:06 | XMS_ITS | Encounter Summary ---
Author Organization [place] Address [address] [place] [address] Care Team Providers Care Deicer Repairer Pneumatic Name Role Phone Cristal Dubose MD Primary Care Provider [phone] Kiel Miles PhD Unavailable [phone] Christie KellyC Unavailable + [phone] Jose Alejandro Dave PA-C Unavailable [phone] Encounter Details Date Type Department Care Team (Late st Contact Info) Description 04/30/2023 MyC Medical Advice [facility] [address] [place] [phone] Alesia Oreilly, SENIOR DESIGNER Social History Tobacco Use Types Packs/Day Years Used Date Smoking Tobacco: Never Smokeless Tobacco: Never Alcohol Use Standard Drinks/Week Comments Yes 0 (1 standard drink = 0.6 oz pur e alcohol) occassional Adolescent Education Answer Date Record ed Getting School Help Needed Not on file 01/18 Sex and Gender Information Value Date Recorded Sex Assigned at Female 04/21/2022 8:20 PM REPAIRER ART OBJECTS Gender Identity Female 04/21/2022 8:20 PM REPAIRER ART OBJECTS Sexual Orientation Straight 04/21/2022 8: 20 PM REPAIRER ART OBJECTS documented as of this encounter Plan of Treatment Upcoming Encounters Date Type Department Care Team (Late Contact Info) Description 03/25/2024 9:00 AM REPAIRER ART OBJECTS Office Visit [facility] [address] [place] [phone] Jose Alejandro Dave PA-C [address] [id number] 03/25/2024 9:30 AM REPAIRER ART OBJECTS Office Visit [facility] [place] [address] [facility] [address] [place] [phone] 1, Sh Wl Diet, RD documented as of this encounter Visit Diagnoses Not on filedocumented in this encounter Care Teams Deicer Repairer Pneumatic Relationship Specialty Start Date End Date Cristal Dubose MD [facility] [address] [place] [address] PCP - General Internal Medicine 10/13/18 Kiel Miles, PhD GRADY AND [employer] [address] [place] [address] Assigned Behavioral Health Provider 05/19/22 Christie Kelly PA-C [address] [address] Assigned Surgical Provider 02/23/23 05/15/23 Jose Alejandro Dave PA-C [address] [address] Assigned Surgical Provider 05/16/23 documented as of this encounter
--- OUTSIDE RECORDS SUMMARY | 2023-10-22 06:06 | XMS_ITS | Encounter Summary ---
Author Organization [place] Address [address] [place] [address]. [place] [address] Care Team Providers Care Concrete Finisher Name Role Phone Cristal Dubose MD Primary Care Provider Kiel Miles PhD Unavailable [phone] Kris Vail MD Unavailable [phone] Jose Alejandro Dave PA-C Unavailable [phone] Christie Kelly PA-C Unavailable [phone] Jose Alejandro Dave PA-C Unavailable [phone] Encounter Details Date Type Department Care Team (Late st Contact Info) Description 08/22/2022 MyC Medical Advice [facility] [place] [address] [place] [phone] Marcela Perez RN [facility] [address] [place], [place] [phone] Social History Tobacco Use Types Packs/Day Years Used Date Smoking Tobacco: Never Smokeless Tobacco: Never Sex and Gender Information Value Date Recorded Sex Assigned at Female 04/21/2022 8:20 PM HULL LINE CREW MEMBER Gender Identity Female 04/21/2022 8:20 PM HULL LINE CREW MEMBER Sexual Orientation Straight 04/21/2022 8: 20 PM HULL LINE CREW MEMBER COVID-19 Exposure Response Date Recorded In the last 10 days, have yo u been in contact with someone who was confirmed or suspected to have Coronavirus/COVID-19? No / Unsure 08/22/2022 9:45 AM CDT documented as of this encounter Plan of Treatment Upcoming Encounters Date Type Department Care Team (Late st Contact Info) Description 03/25/2024 9:00 AM HULL LINE CREW MEMBER Office Visit [facility] [place] [address] [facility] [address] [place] [phone] Jose Alejandro Dave PA-C [address] [place] [id number] 03/25/2024 9:30 AM HULL LINE CREW MEMBER Office Visit [facility] [address] [place] [phone] 1, Sh Wl Diet, RD documented as of this encounter Visit Diagnoses Not on filedocumented in this encounter Care Teams Concrete Finisher Relationship Specialty Start Date End Date Cristal Dubose MD [facility] [address] [place] [address] PCP - General Internal Medicine 10/13/18 Kiel Miles, PhD GRADY AND [facility] [address] [place] [address] Assigned Behavioral Health Provider 05/19/22 Kris Vail MD [address] [place] [address] Assigned Surgical Provider 09/08/22 10/19/22 Jose Alejandro Dave PA-C [address] [place] [address] Assigned Surgical Provider 10/20/22 02/22/23 Christie Kelly PA-C [address] [place] [address] Assigned Surgical Provider 02/23/23 05/15/23 Jose Alejandro Dave PA-C [address] [address] Assigned Surgical Provider 05/16/23 documented as of this encounter
--- OUTSIDE RECORDS SUMMARY | 2023-10-22 06:06 | XMS_ITS | Encounter Summary ---
Author Organization [place] Address [address] [place] [address]. [place] [address] Care Team Providers Care Singeing Torch Operator Name Role Phone Cristal Dubose MD Primary Care Provider Kiel Miles PhD Unavailable [phone] Kris Vail MD Unavailable [phone] Jose Alejandro Dave-C Unavailable [phone] Christie Kelly-C Unavailable [phone] Jose Alejandro Dave-C Unavailable [phone] Encounter Details Date Type Department Care Team (Late st Contact Info) Description 06/13/[address] [facility] [address] [place] [phone] Marcela Perez, EPI [facility] [address] [place] [address] [address] [place] [id number] Social History Tobacco Use Types Packs/Day Years Used Date Smoking Tobacco: Never Smokeless Tobacco: Never Sex and Gender Information Value Date Recorded Sex Assigned at Female 04/21/2022 8:20 PM LEAN PROCESS DEPLOYMENT CONSULTANT Gender Identity Female 04/21/2022 8:20 PM LEAN PROCESS DEPLOYMENT CONSULTANT Sexual Orientation Straight 04/21/2022 8: 20 PM LEAN PROCESS DEPLOYMENT CONSULTANT documented as of this encounter Plan of Treatment Upcoming Encounters Date Type Department Care Team (Late st Contact Info) Description 03/25/2024 9:00 AM LEAN PROCESS DEPLOYMENT CONSULTANT Office Visit [facility] [place] [address] [facility] [address] [place] [phone] Jose Alejandro Dave PA-C [address] 6[address] 03/25/2024 9:30 AM LEAN PROCESS DEPLOYMENT CONSULTANT Office Visit [facility] [place] [address] [facility] [address] [place] [phone] 1, Sh Wl Diet, RD documented as of this encounter Visit Diagnoses Not on filedocumented in this encounter Care Teams Singeing Torch Operator Relationship Specialty Start Date End Date Cristal Dubose MD [facility] [address] [place] [address] PCP - General Internal Medicine 10/13/18 Kiel Miles, PhD GRADY AND [employer] [facility] [address] [place] [address] Assigned Behavioral Health Provider 05/19/22 Kris Vail MD [address] [place] [address] Assigned Surgical Provider 09/08/22 10/19/22 Jose Alejandro Dave PA-C [address] [place] [address]14[address] Assigned Surgical Provider 10/20/22 02/22/23 Christie Kelly PA-C [address] [place] [id number] Assigned Surgical Provider 02/23/23 05/15/23 Jose Alejandro Dave PA-C [address] [address] Assigned Surgical Provider 05/16/23 documented as of this encounter
--- OUTSIDE RECORDS SUMMARY | 2023-10-22 06:06 | XMS_ITS | Encounter Summary ---
Author Organization [place] Address [address] [place] [address] Care Team Providers Care Answering Service Agent Name Role Phone Cristal Dubose MD Primary Care Provider Kiel Miles PhD Unavailable [phone] Jose Alejandro DaveC Unavailable [phone] Christie Kelly-C Unavailable [phone] Jose Alejandro Dave PA-C Unavailable [phone] Encounter Details Date Type Department Care Team (Late st Contact Info) Description 02/11/2023 MyC Medical Advice [facility] [address] [place] [phone] Alesia Oreilly, WELDING MACHINE OPERATOR PLASMA ARC Social History Tobacco Use Types Packs/Day Years Used Date Smoking Tobacco: Never Smokeless Tobacco: Never Alcohol Use Standard Drinks/Week Comments Yes 0 (1 standard drink = 0.6 oz pur e alcohol) occassional Adolescent Education Answer Date Record ed Getting School Help Needed Not on file 01/18 Sex and Gender Information Value Date Recorded Sex Assigned at Female 04/21/2022 8:20 PM IMPLEMENTATION ARCHITECT Gender Identity Female 04/21/2022 8:20 PM IMPLEMENTATION ARCHITECT Sexual Orientation Straight 04/21/2022 8: 20 PM IMPLEMENTATION ARCHITECT COVID-19 Exposure Response Date Recorded In the last 10 days, have yo u been in contact with someone who was confirmed or suspected to have Coronavirus/COVID-19? No / Unsure 01/28/2023 10:22 AM CDT documented as of this encounter Plan of Treatment Upcoming Encounters Date Type Department Care Team (Late st Contact Info) Description 03/25/2024 9:00 AM IMPLEMENTATION ARCHITECT Office Visit [facility] [place] [address] [facility] [address] [place] [phone] Jose Alejandro Dave PA-C [address] [place] [address] 03/25/2024 9:30 AM IMPLEMENTATION ARCHITECT Office Visit [facility] [place] [address] [facility] [address] [place] [phone] 1, Sh Wl Diet, RD documented as of this encounter Visit Diagnoses Not on filedocumented in this encounter Care Teams Answering Service Agent Relationship Specialty Start Date End Date Cristal Dubose MD [facility] [address] [place] [address] PCP - General Internal Medicine 10/13/18 Kiel Miles, PhD [facility] [address] [place] [address] Assigned Behavioral Health Provider 05/19/22 Jose Alejandro Dave PA-C [address] [place] [place] [address] Assigned Surgical Provider 10/20/22 02/22/23 Christie Kelly PA-C [address] [place] 9[address] Assigned Surgical Provider 02/23/23 05/15/23 Jose Alejandro Dave PA-C [address] [address] Assigned Surgical Provider 05/16/23 documented as of this encounter
--- OUTSIDE RECORDS SUMMARY | 2023-10-22 06:06 | XMS_ITS | Encounter Summary ---
Author Organization [place] Address [address] [place] [address]. [place] [address] Care Team Providers Care Infection Control Preventionist Name Role Phone Cristal Dubose MD Primary Care Provider Kiel Miles PhD Unavailable [phone] Kris Vail MD Unavailable [phone] Jose Alejandro Dave-C Unavailable [phone] Christie Kelly-C Unavailable [phone] Jose Alejandro Dave-Gideon Unavailable [phone] Encounter Details Date Type Department Care Team (Late st Contact Info) Description 09/24/2022 MyC Medical Advice [facility] [address] [place] [phone] Anali Rosales RN Social History Tobacco Use Types Packs/Day Years Used Date Smoking Tobacco: Never Smokeless Tobacco: Never Sex and Gender Information Value Date Recorded Sex Assigned at Female 04/21/2022 8:20 PM CUSTOMER SERVICE SALES ASSOCIATE Gender Identity Female 04/21/2022 8:20 PM CUSTOMER SERVICE SALES ASSOCIATE Sexual Orientation Straight 04/21/2022 8: 20 PM CUSTOMER SERVICE SALES ASSOCIATE COVID-19 Exposure Response Date Recorded In the last 10 days, have yo u been in contact with someone who was confirmed or suspected to have Coronavirus/COVID-19? Unable to assess 09/27/2022 12:00 PM CDT documented as of this encounter Plan of Treatment Upcoming Encounters Date Type Department Care Team (Late st Contact Info) Description 03/25/2024 9:00 AM CUSTOMER SERVICE SALES ASSOCIATE Office Visit [facility] [place] [phone] [facility] [address] [place] [phone] Jose Alejandro Dave PA-C [address] [place] [address] 03/25/2024 9:30 AM CUSTOMER SERVICE SALES ASSOCIATE Office Visit [facility] [place] [phone] [facility] [address] [place] [phone] 1, Sh Wl Diet, RD documented as of this encounter Visit Diagnoses Not on filedocumented in this encounter Care Teams Infection Control Preventionist Relationship Specialty Start Date End Date Cristal Dubose MD [facility] [address] [place] [address] PCP - General Internal Medicine 10/13/18 Kiel Miles, PhD GRADY AND [employer] [facility] [address] [place] [address] Assigned Behavioral Health Provider 05/19/22 Kris Vail MD [address] [place] [address] Assigned Surgical Provider 09/08/22 10/19/22 Jose Alejandro Dave PA-C [address], [place] [address] Assigned Surgical Provider 10/20/22 02/22/23 Christie Kelly PA-C [address] [place] [address] Assigned Surgical Provider 02/23/23 05/15/23 Jose Alejandro Dave PA-C [address] [place] [address] Assigned Surgical Provider 05/16/23 documented as of this encounter
--- OUTSIDE RECORDS SUMMARY | 2023-10-22 06:06 | XMS_ITS | Encounter Summary ---
Author Organization [place] Address [address] [place] [address]. [place] [address] Care Team Providers Care District Commercial Superintendent Name Role Phone Cristal Dubose MD Primary Care Provider Kiel Miles PhD Unavailable [phone] Kris Vail MD Unavailable [phone] Jose Alejandro Dave-C Unavailable [phone] Christie Kelly-C Unavailable [phone] Jose Alejandro Dave-C Unavailable [phone] Encounter Details Date Type Department Care Team (Late st Contact Info) Description 04/23/2022 MyC Medical Advice [facility] [address] [place] [phone] Marcela Perez, EPI [facility] [address] [place] [address] [address] [place] 137135 Social History Tobacco Use Types Packs/Day Years Used Date Smoking Tobacco: Never Smokeless Tobacco: Never Sex and Gender Information Value Date Recorded Sex Assigned at Female 04/21/2022 8:20 PM IMPORT/EXPORT AGENT Gender Identity Female 04/21/2022 8:20 PM IMPORT/EXPORT AGENT Sexual Orientation Straight 04/21/2022 8: 20 PM IMPORT/EXPORT AGENT documented as of this encounter Plan of Treatment Upcoming Encounters Date Type Department Care Team (Late st Contact Info) Description 03/25/2024 9:00 AM IMPORT/EXPORT AGENT Office Visit [facility] [place] [address] [facility] [address] [place] [phone] Jose Alejandro Dave PA-C [address] 8[address] 03/25/2024 9:30 AM IMPORT/EXPORT AGENT Office Visit [facility] [place] [address] [facility] [address] [place] [phone] 1, Sh Wl Diet, RD documented as of this encounter Visit Diagnoses Not on filedocumented in this encounter Care Teams District Commercial Superintendent Relationship Specialty Start Date End Date Cristal Dubose MD [facility] [address] [place] [address] PCP - General Internal Medicine 10/13/18 Kiel Miles, PhD GRADY AND [employer] [facility] [address] [place] [address] Assigned Behavioral Health Provider 05/19/22 Kris Vail MD [address] [place] [address] Assigned Surgical Provider 09/08/22 10/19/22 Jose Alejandro Dave PA-C [address] [place] [address] Assigned Surgical Provider 10/20/22 02/22/23 Christie Kelly PA-C [address] [place] [address] Assigned Surgical Provider 02/23/23 05/15/23 Jose Alejandro Dave PA-C [address] [address] Assigned Surgical Provider 05/16/23 documented as of this encounter
--- OUTSIDE RECORDS SUMMARY | 2023-10-22 06:06 | XMS_ITS | Encounter Summary ---
Author Organization [place] Address [address] [place] [address] Care Team Providers Care Liquefier Name Role Phone Cristal Dubose MD Primary Care Provider Kiel Miles PhD Unavailable [phone] Jose Alejandro Dave PA-C Unavailable [phone] Encounter Details Date Type Department Care Team (Late st Contact Info) Description 10/02/2023 MyC Medical Advice [facility] [address] [place] [phone] Alesia Oreilly, SCREEN PRINTING CLOTH SPREADER Social History Tobacco Use Types Packs/Day Years Used Date Smoking Tobacco: Never Smokeless Tobacco: Never Alcohol Use Standard Drinks/Week Comments Yes 0 (1 standard drink = 0.6 oz pur e alcohol) occassional Adolescent Education Answer Date Record ed Getting School Help Needed Not on file 01/18 Sex and Gender Information Value Date Recorded Sex Assigned at Female 04/21/2022 8:20 PM ENGINEERING DRAWINGS CHECKER Gender Identity Female 04/21/2022 8:20 PM ENGINEERING DRAWINGS CHECKER Sexual Orientation Straight 04/21/2022 8: 20 PM ENGINEERING DRAWINGS CHECKER documented as of this encounter Plan of Treatment Upcoming Encounters Date Type Department Care Team (Late st Contact Info) Description 03/25/2024 9:00 AM ENGINEERING DRAWINGS CHECKER Office Visit [facility] [place] [address] [facility] [address] [place] [phone] Jose Alejandro Dave PA-C [address] [place] [address] [address] 03/25/2024 9:30 AM ENGINEERING DRAWINGS CHECKER Office Visit [facility] [place] [address] [facility] [address] [place] [phone] 1, Sh Keeley Castro, LEIGHANN documented as of this encounter Visit Diagnoses Not on filedocumented in this encounter Care Teams Liquefier Relationship Specialty Start Date End Date Cristal Dubose MD [facility] [address] [place] [address] PCP - General Internal Medicine 10/13/18 Kiel Miles, PhD [facility] [address] [place] [address] Assigned Behavioral Health Provider 05/19/22 Jose Alejandro Dave PA-C [address] [place] [address] [address] Assigned Surgical Provider 05/16/23 documented as of this encounter
--- OUTSIDE RECORDS SUMMARY | 2023-10-22 06:06 | XMS_ITS | Encounter Summary ---
Author Organization [place] Address [address] [place] [address] Care Team Providers Care Dive Supervisor Name Role Phone Cristal Dubose MD Primary Care Provider Kiel Miles PhD Unavailable [phone] Jose Alejandro DaveC Unavailable [phone] Christie Kelly-C Unavailable [phone] Jose Alejandro Dave PA-C Unavailable [phone] Encounter Details Date Type Department Care Team (Late st Contact Info) Description 02/15/2023 MyC Medical Advice [facility] [address] [place] [phone] Alesia Oreilly, MACHINE FOLDER Social History Tobacco Use Types Packs/Day Years Used Date Smoking Tobacco: Never Smokeless Tobacco: Never Alcohol Use Standard Drinks/Week Comments Yes 0 (1 standard drink = 0.6 oz pur e alcohol) occassional Adolescent Education Answer Date Record ed Getting School Help Needed Not on file 01/18 Sex and Gender Information Value Date Recorded Sex Assigned at Female 04/21/2022 8:20 PM SELVAGE MACHINE OPERATOR Gender Identity Female 04/21/2022 8:20 PM SELVAGE MACHINE OPERATOR Sexual Orientation Straight 04/21/2022 8: 20 PM SELVAGE MACHINE OPERATOR COVID-19 Exposure Response Date Recorded In the last 10 days, have yo u been in contact with someone who was confirmed or suspected to have Coronavirus/COVID-19? No / Unsure 01/28/2023 10:22 AM CDT documented as of this encounter Plan of Treatment Upcoming Encounters Date Type Department Care Team (Late st Contact Info) Description 03/25/2024 9:00 AM SELVAGE MACHINE OPERATOR Office Visit [facility] [place] [address] [facility] [address] [place] [phone] Jose Alejandro Dave PA-C [address] [place] [id number] 03/25/2024 9:30 AM SELVAGE MACHINE OPERATOR Office Visit [facility] [place] [phone] [facility] [address] [place] [phone] 1, Sh Wl Diet, RD documented as of this encounter Visit Diagnoses Not on filedocumented in this encounter Care Teams Dive Supervisor Relationship Specialty Start Date End Date Cristal Dubose MD [facility] [address] [place] [address] PCP - General Internal Medicine 10/13/18 Kiel Miles, PhD [facility] [address] [place] [address] Assigned Behavioral Health Provider 05/19/22 Jose Alejandro Dave PA-C [address] [place] [address] Assigned Surgical Provider 10/20/22 02/22/23 Christie Kelly PA-C [address] [place] [id number] Assigned Surgical Provider 02/23/23 05/15/23 Jose Alejandro Dave PA-C [address] [address] Assigned Surgical Provider 05/16/23 documented as of this encounter
--- OUTSIDE RECORDS SUMMARY | 2023-10-22 06:06 | XMS_ITS | Encounter Summary ---
Author Organization [facility] Address [address] [place] [address] Care Team Providers Care Culinary Director Name Role Phone Cristal Dubose MD Primary Care Provider Kiel Miles PhD Unavailable [phone] Kris Vail MD Unavailable [phone] Jose Alejandro Dave-C Unavailable [phone] Christie Kelly-C Unavailable [phone] Jose Alejandro Dave-Gideon Unavailable [phone] Encounter Details Date Type Department Care Team (Late st Contact Info) Description 01/05/2022 MyC Medical Advice [facility] [place] [address] [place] [phone] Marie Corley MA Social History Tobacco Use Types Packs/Day Years Used Date Smoking Tobacco: Never Smokeless Tobacco: Never Sex and Gender Information Value Date Recorded Sex Assigned at Female 04/21/2022 8:20 PM FOLDER SEAMER AUTOMATIC Gender Identity Female 04/21/2022 8:20 PM FOLDER SEAMER AUTOMATIC Sexual Orientation Straight 04/21/2022 8: 20 PM FOLDER SEAMER AUTOMATIC documented as of this encounter Plan of Treatment Upcoming Encounters Date Type Department Care Team (Late st Contact Info) Description 03/25/2024 9:00 AM FOLDER SEAMER AUTOMATIC Office Visit [facility] [address] [place] [phone] Jose Alejandro Dave PA-C [address] 676[address] 03/25/2024 9:30 AM FOLDER SEAMER AUTOMATIC Office Visit [facility] [place] [address] [facility] [address] [place] [phone] 1, Sh Wl Diet, RD documented as of this encounter Visit Diagnoses Not on filedocumented in this encounter Care Teams Culinary Director Relationship Specialty Start Date End Date Critsal Dubose MD [facility] [address] [place] [address] PCP - General Internal Medicine 10/13/18 Kiel Miles, PhD [facility] [employer] [facility] [address] [place] [address] Assigned Behavioral Health Provider 05/19/22 Kris Vail MD [address] [place] [place] [address] Assigned Surgical Provider 09/08/22 10/19/22 Jose Alejandro Dave PA-C [address] [address] Assigned Surgical Provider 10/20/22 02/22/23 Christie Kelly PA-C [address] [place] [address] Assigned Surgical Provider 02/23/23 05/15/23 Jose Alejandro Dave PA-C [address] [address] Assigned Surgical Provider 05/16/23 documented as of this encounter
--- OUTSIDE RECORDS SUMMARY | 2023-10-22 06:06 | XMS_ITS | Encounter Summary ---
Author Organization [facility] Address [address] [place] [address]. [place] [address] Care Team Providers Care Consulting Networking Engineer Name Role Phone Cristal Dubose MD Primary Care Provider Kiel Miles PhD Unavailable [phone] Jose Alejandro Dave PA-C Unavailable [phone] Encounter Details Date Type Department Care Team (Latest Contact Info) Description 10/09/2023 Travel Social History Tobacco Use Types Packs/Day Years Used Date Smoking Tobacco: Never Smokeless Tobacco: Never Alcohol Use Standard Drinks/Week Comments Yes 0 (1 standard drink = 0.6 oz pur e alcohol) occassional Adolescent Education Answer Date Record ed Getting School Help Needed Not on file 01/18 Sex and Gender Information Value Date Recorded Sex Assigned at Female 04/21/2022 8:20 PM TELEMETRY NURSE Gender Identity Female 04/21/2022 8:20 PM TELEMETRY NURSE Sexual Orientation Straight 04/21/2022 8: 20 PM TELEMETRY NURSE documented as of this encounter Plan of Treatment Upcoming Encounters Date Type Department Care Team (Late st Contact Info) Description 03/25/2024 9:00 AM TELEMETRY NURSE Office Visit [facility] [place] [address] [facility] [address] [place] [phone] Jose Alejandro Dave PA-C [address] [facility] [place] [id number] 03/25/2024 9:30 AM TELEMETRY NURSE Office Visit [facility] [place] [address] [facility] [address] [place] [phone] 1, Sh Keeley Castro RD documented as of this encounter Visit Diagnoses Not on filedocumented in this encounter Care Teams Consulting Networking Engineer Relationship Specialty Start Date End Date Cristal Dubose MD [facility] [address] [place] [address] PCP - General Internal Medicine 10/13/18 Kiel Miles, PhD [facility] [employer] [facility] [address] [place] [address] Assigned Behavioral Health Provider 05/19/22 Jose Alejandro Dave PA-C [address] [place] [address] [address] Assigned Surgical Provider 05/16/23 documented as of this encounter
--- OUTSIDE RECORDS SUMMARY | 2023-10-22 06:06 | XMS_ITS | Encounter Summary ---
Author Organization [place] Address [facility]ly [facility] [place] [address] Care Team Providers Care International Representative Name Role Phone Cristal Dubose MD Primary Care Provider Kiel Miles PhD Unavailable [phone] Jose Alejandro Dave PA-C Unavailable [phone] Encounter Details Date Type Department Care Team (Late st Contact Info) Description 10/09/2023 1:00 PM CDT Lab [facility] [address] [facility] [place] [phone] Bariatric surgery status; Postsurgical malabsorption Social History [...] Sex Assigned at Female 04/21/2022 8:20 PM COMPLETION ENGINEER Gender Identity Female 04/21/2022 8:20 PM COMPLETION ENGINEER Sexual Orientation Straight 04/21/2022 8: 20 PM COMPLETION ENGINEER documented as of this encounter Plan of Treatment Upcoming Encounters Date Type Department Care Team (Late st Contact Info) Description 03/25/2024 9:00 AM COMPLETION ENGINEER Office Visit [facility] [place] [address] [facility] [address] [place] [phone] Jose Alejandro Dave PA-C [address] [place] [address] 03/25/2024 9:30 AM COMPLETION ENGINEER Office Visit [facility] [place] [address] [facility] [address] [place] [phone] 1, Sh Wl Diet, RD documented as of this encounter Procedures Procedure Name Priority Date/Time Associated Diagnosis Comments VITAMIN D DEFICIENCY SCREENING Routine 10/09/2023 10:13 AM CDT Bariatric surgery status Postsurgical malabsorption VITAMIN A Routine 10/09/2023 10:13 AM CDT Postsurgical malabsorption PARATHYROID HORMONE INTACT Routine 10/09/2023 10:13 AM CDT Bariatric surgery status Postsurgical malabsorption IRON AND IRON BINDING CAPACITY Routine 10/09/2023 10:13 AM CDT Bariatric surgery status Postsurgical malabsorption FERRITIN Routine 10/09/2023 10:13 AM CDT Bariatric surgery status Postsurgical malabsorption VITAMIN B12 Routine 10/09/2023 10:13 AM CDT Bariatric surgery status Postsurgical malabsorption CBC WITH PLATELETS Routine 10/09/2023 10 :13 AM CDT Bariatric surgery status Postsurgical malabsorption documented in this encounter Results * Vitamin A (10/09/2023 10:13 AM CDT) Vitamin A 0.66 0.30 - 1.20 mg/L 10/11/2023 7:52 AM CDT [facility] Retinol Palmitate <0.02 0.00 - 0.10 mg/L 10/11/2023 7:52 AM CDT [facility] Vitamin A Interp Normal 10/11/19 7:52 AM CDT [facility] Comment: This test was developed and its performance characteristics determined by [employer]. It has not been cleared or approved by the [place] Food and Drug Administration. This test was performed in a CLIA certified laboratory and is intended for clinical purposes. Performed By: [employer] [address] [place] [address] Product Developer: Oni Atwood MD, PhD CLIA Number: [id number] Blood STRUCTURE OF LEFT UPPER LIMB / Unknown Venipuncture / Unknown 10/09/2023 10:13 AM CDT 10/09/2023 10:13 AM CDT Jose Alejandro Dave PA-C LAB - BLOOD ORD ERABLES [employer] [address] [place] [address] [phone] * Ferritin (10/09/2023 10:13 AM CDT) Ferritin 52 11 - 328 ng/mL 10/09/2023 6:18 PM CDT [facility] Blood STRUCTURE OF LEFT UPPER LIMB / Unknown Venipuncture / Unknown 10/09/2023 10:13 AM CDT 10/09/2023 10:13 AM CDT Jose Alejandro Dave PA-C LAB - BLOOD ORD ERABLES [facility] [address] [facility] [address] * Iron and Iron Binding Capacity (10/09/2023 [...] CDT 10/09/2023 10:13 AM CDT Jose Alejandro Vincentnilson AARON-Gideon LAB - BLOOD ORD ERABLES LABORATORY [facility] [address] 1[address] floor, [address] [place] [address], [facility] [phone] * Parathyroid Hormone Intact (10/09/2023 10:13 AM [...] differs from PTH assays used in other [facility] laboratories. Jose Alejandro Vincentnilson [facility] LAB - BLOOD ORD ERABLES Performing Organization Address City/[facility]/ZIP Co de Phone Number LABORATORY [facility] [address] 1[address] floor, [address], [place] [address], [facility] [phone] * Vitamin D Screen (10/09/2023 10:13 AM CDT) Vitamin D, Total (25-Hydroxy) 39 20 - 50 ng/mL 10/09/2023 6:18 PM CDT [facility] Comment:optimum levels Blood STRUCTURE OF LEFT UPPER LIMB / Unknown Venipuncture / Unknown 10/09/2023 10:13 AM CDT 10/09/2023 10:13 AM CDT Narrative LABORATORY - 10/09/2023 6:18 PM CDT Season, race, dietary intake, and treatment affect the concentration of 59-xjpdlxv-Xozlwwr D. Values may decrease during winter months and increase during summer months. Vitamin D determination is routinely performed by an immunoassay specific for 25 hydroxyvitamin D3. ??If an individual is on vitamin D2(ergocalciferol) supplementation, please specify 25 [place] vitamin D2 and D3 level determination by LCMSMS test VITD23. Jose Alejandro Dave PA-C LAB - BLOOD ORD ERABLES [facility] [address] [facility], [address] [id number] * Vitamin B12 (10/09/2023 10:13 AM CDT) [facility] Vitamin B12 1,148 232 - 1,245 pg/mL 10/09/2023 6:18 PM CDT [facility] Blood STRUCTURE OF LEFT UPPER LIMB / Unknown Venipuncture / Unknown 10/09/2023 10:13 AM CDT 10/09/2023 10:13 AM CDT Jose Alejandro Dave PA-C LAB - BLOOD ORD ERABLES Performing Organization Address City/[facility]/ZIP Co de Phone Number U LAB[facility]AT[facility] [address] [facility], [address] [phone] * CBC with platelets (10/09/2023 10:13 AM CDT) [facility] WBC Count 5.8 4.0 - 11.0 10e3/uL [...] PA-C LAB - BLOOD ORD ERABLES LABORATORY [facility] [address] floor, [address] [place] [address], [facility] [phone] documented in this encounter Visit Diagnoses Diagnosis Bariatric surgery status 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 documented in this encounter Care Teams International Representative Relationship Specialty Start Date End Date Cristal Dubose MD [facility] [address] [place] [address] PCP - General Internal Medicine 10/13/18 Kiel Miles, PhD [facility] [facility] [address] [place] [address] Assigned Behavioral Health Provider 05/19/22 Jose Alejandro Dave PA-C [address] [place] [place] [address] Assigned Surgical Provider 05/16/23 documented as of this encounter
--- OUTSIDE RECORDS SUMMARY | 2023-10-22 06:06 | XMS_ITS | Encounter Summary ---
Author Organization [place] Address [address] [place] [address] Care Team Providers Care Process Engineering Technician Name Role Phone Cristal Dubose MD Primary Care Provider Kiel Miles PhD Unavailable [phone] Jose Alejandro Dave PA-C Unavailable [phone] Encounter Details Date Type Department Care Team (Late st Contact Info) Description 10/08/2023 MyC Medical Advice [facility] [address] [place] [phone] Alesia Oreilly, MAINSPRING FORMER BRACE END Social History Tobacco Use Types Packs/Day Years Used Date Smoking Tobacco: Never Smokeless Tobacco: Never Alcohol Use Standard Drinks/Week Comments Yes 0 (1 standard drink = 0.6 oz pur e alcohol) occassional Adolescent Education Answer Date Record ed Getting School Help Needed Not on file 01/18 Sex and Gender Information Value Date Recorded Sex Assigned at Female 04/21/2022 8:20 PM UI SOFTWARE ENGINEER Gender Identity Female 04/21/2022 8:20 PM UI SOFTWARE ENGINEER Sexual Orientation Straight 04/21/2022 8: 20 PM UI SOFTWARE ENGINEER documented as of this encounter Plan of Treatment Upcoming Encounters Date Type Department Care Team (Late st Contact Info) Description 03/25/2024 9:00 AM UI SOFTWARE ENGINEER Office Visit [facility] [place] [phone] [facility] [address] [place] [phone] Jose Alejandro Dave PA-C [address] [address] 03/25/2024 9:30 AM UI SOFTWARE ENGINEER Office Visit [facility] [place] [address] [facility] [address] [place] [phone] 1, Sh Keeley Castro, LEIGHANN documented as of this encounter Visit Diagnoses Not on filedocumented in this encounter Care Teams Process Engineering Technician Relationship Specialty Start Date End Date Cristal Dubose MD [facility] [address] [place] [address] PCP - General Internal Medicine 10/13/18 Kiel Miles, PhD [facility] [address] [place] [address] Assigned Behavioral Health Provider 05/19/22 Jose Alejandro Dave PA-C [address] [place] [address] [address] Assigned Surgical Provider 05/16/23 documented as of this encounter
--- OUTSIDE RECORDS SUMMARY | 2023-10-22 06:06 | XMS_ITS | Encounter Summary ---
Author Organization [place] Address [address] [place] [address]. [place] [address] Care Team Providers Care Granite Installer Name Role Phone Cristal Dubose MD Primary Care Provider Kiel Miles PhD Unavailable Christie KellyC Unavailable [phone] Jose Alejandro Dave PA-C Unavailable [phone] Encounter Details Date Type Department Care Team (Late st Contact Info) Description 05/06/2023 MyC Medical Advice [facility] Weight Loss [facility] [address] [place] [phone] Renay Franklin MA Social History Tobacco Use Types Packs/Day Years Used Date Smoking Tobacco: Never Smokeless Tobacco: Never Alcohol Use Standard Drinks/Week Comments Yes 0 (1 standard drink = 0.6 oz pur e alcohol) occassional Adolescent Education Answer Date Record ed Getting School Help Needed Not on file 01/18 Sex and Gender Information Value Date Recorded Sex Assigned at Female 04/21/2022 8:20 PM GLASS CRUSHER Gender Identity Female 04/21/2022 8:20 PM GLASS CRUSHER Sexual Orientation Straight 04/21/2022 8: 20 PM GLASS CRUSHER documented as of this encounter Plan of Treatment Upcoming Encounters Date Type Department Care Team (Late Contact Info) Description 03/25/2024 9:00 AM GLASS CRUSHER Office Visit [facility] [address] [place] [phone] Jose Alejandro Dave PA-C [address] [phone] 03/25/2024 9:30 AM GLASS CRUSHER Office Visit [facility] [place] [address] [facility] [address] [place] [phone] 1, Sh Wl Diet, RD documented as of this encounter Visit Diagnoses Not on filedocumented in this encounter Care Teams Granite Installer Relationship Specialty Start Date End Date Cristal Dubose MD [facility] [address] [place] [address] PCP - General Internal Medicine 10/13/18 Kiel Miles, PhD [facility] [employer] [address] [place] [address] Assigned Behavioral Health Provider 05/19/22 Christie Kelly PA-C [address] [place] [address] Assigned Surgical Provider 02/23/23 05/15/23 Jose Alejandro Dave PA-C [address] [address] Assigned Surgical Provider 05/16/23 documented as of this encounter
--- OUTSIDE RECORDS SUMMARY | 2023-10-22 06:06 | XMS_ITS | Encounter Summary ---
Author Organization [facility] Address [address] [place] [address]. [place] [address] Care Team Providers Care Goods Layer Name Role Phone Cristal Dubose MD Primary Care Provider Kiel Miles PhD Unavailable [phone] Kris Vail MD Unavailable [phone] Jose Alejandro Dave-C Unavailable [phone] Christie Kelly-C Unavailable [phone] Jose Alejandro Dave-C Unavailable [phone] Encounter Details Date Type Department Care Team (Late st Contact Info) Description 08/22/[address] [facility] [place] [address] [place] [phone] Marcela Perez, EPI [facility] [address] [place], [place] [id number] Social History Tobacco Use Types Packs/Day Years Used Date Smoking Tobacco: Never Smokeless Tobacco: Never Sex and Gender Information Value Date Recorded Sex Assigned at Female 04/21/2022 8:20 PM QUILLER RUNNER Gender Identity Female 04/21/2022 8:20 PM QUILLER RUNNER Sexual Orientation Straight 04/21/2022 8: 20 PM QUILLER RUNNER COVID-19 Exposure Response Date Recorded In the last 10 days, have yo u been in contact with someone who was confirmed or suspected to have Coronavirus/COVID-19? No / Unsure 08/22/2022 9:45 AM CDT documented as of this encounter Plan of Treatment Upcoming Encounters Date Type Department Care Team (Late st Contact Info) Description 03/25/2024 9:00 AM QUILLER RUNNER Office Visit [facility] [place] [address] [facility] [address] [place] [phone] Jose Alejandro Dave PA-C [address] [place], [place] [address] 03/25/2024 9:30 AM QUILLER RUNNER Office Visit [facility] [address] [place] [phone] 1, Sh Wl Diet, RD documented as of this encounter Visit Diagnoses Not on filedocumented in this encounter Care Teams Goods Layer Relationship Specialty Start Date End Date Cristal Dubose MD [facility] [address] [place] [address] PCP - General Internal Medicine 10/13/18 Kiel Miles, PhD [facility] [employer] [address] [place] [address] Assigned Behavioral Health Provider 05/19/22 Kris Vail MD [address] [place] [address] Assigned Surgical Provider 09/08/22 10/19/22 Jose Alejandro Dave PA-C [address] [place] [address] Assigned Surgical Provider 10/20/22 02/22/23 Christie Kelly PA-C [address] [place] [address] Assigned Surgical Provider 02/23/23 05/15/23 Jose Alejandro Dave PA-C [address] [place] [address] [address] Assigned Surgical Provider 05/16/23 documented as of this encounter
--- OUTSIDE RECORDS SUMMARY | 2023-10-22 06:06 | XMS_ITS | Encounter Summary ---
Author Organization [place] Address [facility] [place] [address] Care Team Providers Care Theater Manager Name Role Phone Cristal Dubose MD Primary Care Provider Kiel Miles PhD Unavailable [phone] Kris Vail MD Unavailable [phone] Jose Alejandro Dave PA-C Unavailable [phone] Christie Kelly PA-C Unavailable [phone] Jose Alejandro Dave PA-C Unavailable [phone] Encounter Details Date Type Department Care Team (Late st Contact Info) Description 04/22/2022 MyC Medical Advice Initial Department [facility] Social History Tobacco Use Types Packs/Day Years Used Date Smoking Tobacco: Never Smokeless Tobacco: Never Sex and Gender Information Value Date Recorded Sex Assigned at Female 04/21/2022 8:20 PM SHINGLE PACKER Gender Identity Female 04/21/2022 8:20 PM SHINGLE PACKER Sexual Orientation Straight 04/21/2022 8: 20 PM SHINGLE PACKER documented as of this encounter Plan of Treatment Upcoming Encounters Date Type Department Care Team (Late st Contact Info) Description 03/25/2024 9:00 AM SHINGLE PACKER Office Visit [facility] [place] [address] [facility] [address] [place] [phone] Jose Alejandro Dave PA-C [address] [facility] [address] 03/25/2024 9:30 AM SHINGLE PACKER Office Visit [facility] [place] [address] [facility] [address] [place] [phone] 1, Sh Wl Diet, RD documented as of this encounter Visit Diagnoses Not on filedocumented in this encounter Care Teams Theater Manager Relationship Specialty Start Date End Date Cristal Dubose MD [facility] [address] [place] [address] PCP - General Internal Medicine 10/13/18 Kiel Miles, PhD GRADY AND [employer] [address] [place] [address] Assigned Behavioral Health Provider 05/19/22 Kris Vail MD [address] [place] [address] Assigned Surgical Provider 09/08/22 10/19/22 Jose Alejandro Dave PA-C [address] [place] [address] Assigned Surgical Provider 10/20/22 02/22/23 Christie Kelly PA-C [address] [place] [place] [address] Assigned Surgical Provider 02/23/23 05/15/23 Jose Alejandro Dave PA-C [address] [place] [address] Assigned Surgical Provider 05/16/23 documented as of this encounter
--- OUTSIDE RECORDS SUMMARY | 2023-10-22 06:06 | XMS_ITS | Encounter Summary ---
Author Organization [place] Address [facility] [address] Care Team Providers Care Wine Consultant Name Role Phone Cristal Dubose MD Primary Care Provider Kiel Miles PhD Unavailable [phone] Jose Alejandro Dave PA-C Unavailable [phone] Reason for Visit * Reason Comments RECHECK Encounter Details Date Type Department Care Team (Latest Contact Info) Description 10/09/2023 9:00 AM CDT Office Visit [facility] [address] [place] [phone] Jose Alejandro Dave PA-C [address] [facility] [place] [id number] Overweight with body mass index (BMI) of 29 to 29.9 in adult (Primary Dx); Bariatric surgery status; Postsurgical malabsorption Social History [...] Sex Assigned at Female 04/21/2022 8:20 PM PRACTICE MANAGEMENT CONSULTANT Gender Identity Female 04/21/2022 8:20 PM PRACTICE MANAGEMENT CONSULTANT Sexual Orientation Straight 04/21/2022 8: 20 PM PRACTICE MANAGEMENT CONSULTANT documented as of this encounter Last Filed Vital Signs Vital Sign Reading Time Taken Comments Blood Pressure 114/76 10/09/2023 7:40 AM CDT Pulse 56 10/09/2023 7:40 AM CDT Temperature - - Respiratory Rate - - Oxygen Saturation 98% 10/09/2023 7:40 AM CDT Inhaled Oxygen Concentration - - Weight 103 kg (227 lb) 10/09/2023 7:40 AM CDT Height 185.4 cm (6' 1) 10/09/2023 7:40 AM CDT Body Mass Index 29.95 10/09/2023 7:40 AM CDT documented in this encounter Patient Instructions * Patient Instructions* Jose Alejandro Dave PA-C - 10/09/2023 9:00 AM CDT Nice to talk with you today. Below is the plan discussed.- . Jose Alejandro Dave PA-C Plan: Labs ordered. Call [phone] to schedule. Continue your bariatric vitamins See dietitian Check in - in 6 months Bariatric Post Op Guidelines General: Follow up annually lifelong. Obesity is a chronic disease. Weight gain can be expected. The goal of follow-up visits is to ensure adequate vitamin and protein absorption, evaluate food intake behavior, review exercise/activity level, and assist with weight regain. To avoid marginal ulcers avoid all forms [...] for females who menstruate and/or as directed Relay GI symptoms which can be a sign of complications. Inability to tolerate solid food (chicken, steak, fish) should by need to be evaluated. There is a 10% increase of Alcohol Use Disorder in patients with bariatric surgery. Most often occurring around 2 years post op. Call if you feel alcohol is interfering in your daily life. We can help. Nutritional: Eat 3 meals per day (No [...] whole grains, and beans. Portions should be 1 cup per meal. Continue to use saucer/salad plates, /toddler silverware to keep portion sizes small and takesmall bites. Make each meal last 20-30 minutes. Always stop eating when satisfied. Aim for 64 oz. of calorie-free fluids daily. Avoid drinking 30 min before, during, and 30 min after meal Avoid high sugar and high fat foods to prevent high calorie intake. Check nutrition labels for less than 10 grams of sugar and less than 10 grams of fat per serving. documented in this encounter Progress Notes * Jose Alejandro Dave PA-C - 10/09/2023 9:00 AM CDT BARIATRIC FOLLOW UP 10/09/2023 HISTORY OF PRESENT ILLNESS: Pt presents today for her follow-up appointment status post laparoscopic gastric sleeve. Assessment & Plan Problem List Items Addressed This Visit Bariatric surgery status Relevant Orders CBC with platelets Vitamin B12 Vitamin D Screen Parathyroid Hormone Intact Iron Iron and Iron Binding Capacity Ferritin Postsurgical malabsorption Relevant Orders CBC with platelets Vitamin B12 Vitamin D Screen Parathyroid Hormone Intact Iron Iron and Iron Binding Capacity Ferritin Vitamin A Overweight with body mass index (BMI) of 29 to 29.9 in adult - Primary PATIENT INSTRUCTIONS: Get labs - if vitamin B12 levels is good can restart once weekly 5000 mcg. Increase purposeful activity See dietitian Check in - in 6 months COUNSELING PROVIDED: We reviewed the important post op bariatric [...] vitamin supplementation and life long follow up. FOLLOW-UP: Please schedule your next visit in 6 months for a check in. Will go over lifestyle and is necessary discuss WLM's 25 minutes spent on the date of the encounter doing chart review, review of test results, patient visit and documentation INTERVAL HX: Overall patient is doing well. Reports increased stress over the past few months. Mother and sister have moved away and she is alone for the first time. Is very family-centric and not seeing them on a daily basis is going to be a struggle. Also is driving an hour one way to work in the [employer]. Started drinking Starbucks large Ice coffee in the past several months during this drive.Knows this has interfered with weight loss. Still very happy being down about 75 lbs since surgery. WEIGHT METRICS: Body mass index is 29.95 kg/m??. Current Weight: 227 lb (103 kg) Last Visits Weight: 228 lb (103.4 kg) Initial Weight (lbs): 302 lbs Cumulative weight loss (lbs): 75 Weight Loss Percentage: 24.83% Wt Readings from Last 10 Encounters: 10/09/23 227 lb (103 kg) 05/07/23 228 lb (103.4 kg) 02/19/23 243 lb (110.2 kg) 02/18/23 243 lb (110.2 kg) 11/12/22 265 lb (120.2 kg) 10/25/22 270 lb 14.4 oz (122.9 kg) 10/16/22 277 lb 11.2 oz (126 kg) 10/11/22 284 lb (128.8 kg) 09/03/22 284 lb (128.8 kg) 08/22/22 288 lb 6.4 oz (130.8 kg) VITAMINS: 1 Bariatric Pal MVI 500 mg calcium - TID (did not realize serving size was 2) 3000 International units Vitamin D in Bariatric vitamin Vitamin B-12 - stopped due to elevated labs Not getting periods EXERCISE: Pt is exercising working at [employer]. Does this 4 days for full days. Has been moving around a lot recently OBESITY RELATED CONDITIONS: High Blood Pressure - off blood pressure meds for the past week. Restarted today EATING HABITS: How many meals do you eat per day? 3 Do you snack between meals? Yes - just in the past 2 months Are you able to separate your meals and liquids by at least 30 minutes? Yes Are you able to avoid liquid calories? No SOCIAL HISTORY: Pt denies smoking. Pt denies alcohol use. Avoids NSAIDS. Large Starbucks Iced coffee daily- calories and caffeine. X 2 months REVIEW OF SYSTEMS: GI: Nausea- No Vomiting- No Diarrhea- No Constipation- No Dysphagia- No Abd. Pain- No Heartburn- No SKIN: Intertriginous irritation- No PSYCH: Depression- No Anxiety- No Is having some adjustments with family leaving LABS/IMAGING/MEDICAL RECORDS REVIEW: Hemoglobin A1C Date Value Ref Range Status 09/16/2018 5.6 0 - 5.6 % Final Vitamin D, Total (25-Hydroxy) Date Value Ref Range Status 05/07/2023 46 20 - 50 ng/mL Final Comment: optimum levels Parathyroid Hormone Intact Date Value Ref Range Status 05/07/2023 47 15 - 65 pg/mL Final Vitamin B12 Date Value Ref Range Status 05/07/2023 1,661 (H) 232 - 1,245 pg/mL Final Hemoglobin Date Value Ref Range Status 05/07/2023 13.8 11.7 - 15.7 g/dL Final Ferritin Date Value Ref Range Status 05/07/2023 104 11 - 328 ng/mL Final Iron Date Value Ref Range Status 05/07/2023 84 37 - 145 ug/dL Final Iron Binding Capacity Date Value Ref Range Status 05/07/2023 254 240 - 430 ug/dL Final Iron Sat Index Date Value Ref Range Status 05/07/2023 33 15 - 46 % Final 02/18/2023 26 15 - 46 % Final PHYSICAL EXAMINATION: BP 114/76 Pulse 56 Ht 6' 1 (1.854 m) Wt 227 lb (103 kg) LMP (LMP Unknown) SpO2 98% BMI29.95 kg/m?? GENERAL: Alert and oriented x3. NAD HEART: No murmurs, rubs or gallops, Regular rate and rhythm LUNGS: Breathing unlabored, Lung sounds clear to auscultation bilaterally ABDOMEN: soft; nontender; nondistended, incision well healed. No hernia EXTREMITIES: No LE edema bilaterally, Gait normal SKIN: No intertriginous irritation or rash Jose Alejandro Dave MS, PA-C documented in this encounter Plan of Treatment Upcoming Encounters Date Type Department Care Team (Late st Contact Info) Description 03/25/2024 9:00 AM PRACTICE MANAGEMENT CONSULTANT Office Visit [facility] [place] [address] [facility] [address] [place] [phone] Jose Alejandro Dave PA-C [address] [facility] [place] [id number] 03/25/2024 9:30 AM PRACTICE MANAGEMENT CONSULTANT Office Visit [facility] [place] [address] [facility] [address] [place] [phone] 1, Sh Wl Diet, RD documented as of this encounter Results * Vitamin A (10/09/2023 10:13 AM CDT) Pathologist [facility] Vitamin A 0.66 0.30 - 1.20 mg/L 10/11/2023 7:52 AM CDT [facility] Retinol Palmitate <0.02 0.00 - 0.10 mg/L 10/11/2023 7:52 AM CDT [facility] Vitamin A Interp Normal 10/11/19 24 7:52 AM CDT [facility] Comment: This test was developed and its performance characteristics determined by [facility]. It has not been cleared or approved by the [place] Food and Drug Administration. This test was performed in a CLIA certified laboratory and is intended for clinical purposes. Performed By: [facility] [address] [place] [id number] [employer] Courses Sales Representative: Oni Atwood MD, PhD CLIA Number: [id number] Blood STRUCTURE OF LEFT UPPER LIMB / Unknown Venipuncture / Unknown 10/09/2023 10:13 AM CDT 10/09/2023 10:13 AM CDT Jose Alejandro Dave PA-C LAB - BLOOD ORD ERABLES [facility] [address] [place] [address], [facility] [phone] * Ferritin (10/09/2023 10:13 AM CDT) Ferritin 52 11 - 328 ng/mL 10/09/2023 6:18 PM CDT [facility] Blood STRUCTURE OF LEFT UPPER LIMB / Unknown Venipuncture / Unknown 10/09/2023 10:13 AM CDT 10/09/2023 10:13 AM CDT Jose Alejandro Dave PA-C LAB - BLOOD ORD ERABLES [facility] [address] [facility], [address] [place] [address], [facility] * Iron and Iron Binding Capacity (10/09/2023 [...] PA-C LAB - BLOOD ORD ERABLES LABORATORY [facility] [address] floor, [address] [place] [address], [facility] [phone] * Parathyroid Hormone Intact (10/09/2023 10:13 AM [...] differs from PTH assays used in other [facility] laboratories. Jose Alejandro Dave PA-C LAB - BLOOD ORD ERABLES LABORATORY [facility] [address], [address] [place] [address], [facility] [phone] * Vitamin D Screen (10/09/2023 10:13 AM CDT) Vitamin D, Total (25-Hydroxy) 39 20 - 50 ng/mL 10/09/2023 6:18 PM CDT [facility] Comment:optimum levels Blood STRUCTURE OF LEFT UPPER LIMB / Unknown Venipuncture / Unknown 10/09/2023 10:13 AM CDT 10/09/2023 10:13 AM CDT [facility] - 10/09/2023 6:18 PM CDT Season, race, dietary intake, and treatment affect the concentration of 38-wglkgcs-Fspeube D. Values may decrease during winter months and increase during summer months. Vitamin D determination is routinely performed by an immunoassay specific for 25 hydroxyvitamin D3. ??If an individual is on vitamin D2(ergocalciferol) supplementation, please specify 25 OH vitamin D2 and D3 level determination by LCMSMS test VITD23. Jose Alejandro Dave PA-C LAB - BLOOD ORD ERABLES [facility] [address] [facility], [address] [place] [address], [facility] * Vitamin B12 (10/09/2023 10:13 AM CDT) Pathologist [facility] Vitamin B12 1,148 232 - 1,245 pg/mL 10/09/2023 6:18 PM CDT [facility] Blood STRUCTURE OF LEFT UPPER LIMB / Unknown Venipuncture / Unknown 10/09/2023 10:13 AM CDT 10/09/2023 10:13 AM CDT Jose Alejandro Dave PA-C LAB - BLOOD ORD ERABLES [facility] [address] [facility], [address] [place] [address] * CBC with platelets (10/09/2023 10:13 AM CDT) [facility] WBC Count 5.8 4.0 - 11.0 [...] 10:13 AM CDT 10/09/2023 10:13 AM CDT Rennye Levina Tenzin PA-C LAB - BLOOD ORD ERABLES LABORATORY [facility] [address], [address] [place] [address], [facility] [phone] documented in this encounter Visit Diagnoses Diagnosis Overweight with body mass index (BMI) of 29 to 29.9 in adult- Primary Bariatric surgery status 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 documented in this encounter Care Teams Wine Consultant Relationship Specialty Start Date End Date Cristal Dubose MD [facility] & [address] [address] PCP - General Internal Medicine 10/13/18 Kiel Miles, PhD GRADY AND [employer] [facility] [address] [place] [address] Assigned Behavioral Health Provider 05/19/22 Jose Alejandro Dave PA-C [address] [place] [address] Assigned Surgical Provider 05/16/23 documented as of this encounter
--- OUTSIDE RECORDS SUMMARY | 2023-10-22 06:06 | XMS_ITS | Encounter Summary ---
Author Organization [place] Address [facility] [place] [address] Care Team Providers Care Animal Husbandry Technician Name Role Phone Cristal Dubose MD Primary Care Provider [phone] Kiel Miles PhD Unavailable [phone] Christie Kelly PA-C Unavailable [phone] Jose Alejandro Dave PA-C Unavailable [phone] Encounter Details Date Type Department Care Team (Late st Contact Info) Description 05/06/2023 MyC Medical Advice Initial Department [facility] [place] Social History Tobacco Use Types Packs/Day Years Used Date Smoking Tobacco: Never Smokeless Tobacco: Never Alcohol Use Standard Drinks/Week Comments Yes 0 (1 standard drink = 0.6 oz pur e alcohol) occassional Adolescent Education Answer Date Record ed Getting School Help Needed Not on file 01/18 Sex and Gender Information Value Date Recorded Sex Assigned at Female 04/21/2022 8:20 PM HANGER Gender Identity Female 04/21/2022 8:20 PM HANGER Sexual Orientation Straight 04/21/2022 8: 20 PM HANGER documented as of this encounter Plan of Treatment Upcoming Encounters Date Type Department Care Team (Late st Contact Info) Description 03/25/2024 9:00 AM HANGER Office Visit [facility] [place] [phone] [facility] [address] [place] [phone] Jose Alejandro Dave PA-C [address] [place] [address] 03/25/2024 9:30 AM HANGER Office Visit [facility] [place] [address] [facility] [address] [place] [phone] 1, Sh Wl Diet, RD documented as of this encounter Visit Diagnoses Not on filedocumented in this encounter Care Teams Animal Husbandry Technician Relationship Specialty Start Date End Date Cristal Dubose MD [facility] [address] [place] [address] PCP - General Internal Medicine 10/13/18 Kiel Miles, PhD GRADY AND [employer] [facility] [address] [place] [address] Assigned Behavioral Health Provider 05/19/22 Christie Kelly PA-C [address] [place] [address] Assigned Surgical Provider 02/23/23 05/15/23 Jose Alejandro Dave PA-C [address] [place] [address] Assigned Surgical Provider 05/16/23 documented as of this encounter
--- OUTSIDE RECORDS SUMMARY | 2023-10-22 06:06 | XMS_ITS | Encounter Summary ---
Author Organization [place] Address [address] [place] [address] Care Team Providers Care Marble Coper Name Role Phone Cristal Dubose MD Primary Care Provider Kiel Miles PhD Unavailable [phone] Kris Vail MD Unavailable [phone] Jose Alejandro Dave PA-C Unavailable [phone] Christie Kelly-Gideon Unavailable [phone] Jose Alejandro Dave PA-C Unavailable [phone] Encounter Details Date Type Department Care Team (Late st Contact Info) Description 01/10/2022 MyC Medical Advice Initial Department [facility] Social History Tobacco Use Types Packs/Day Years Used Date Smoking Tobacco: Never Smokeless Tobacco: Never Sex and Gender Information Value Date Recorded Sex Assigned at Female 04/21/2022 8:20 PM ACCOUNT EXECUTIVE AGRIBUSINESS Gender Identity Female 04/21/2022 8:20 PM ACCOUNT EXECUTIVE AGRIBUSINESS Sexual Orientation Straight 04/21/2022 8: 20 PM ACCOUNT EXECUTIVE AGRIBUSINESS COVID-19 Exposure Response Date Recorded In the last 10 days, have yo u been in contact with someone who was confirmed or suspected to have Coronavirus/COVID-19? No / Unsure 01/11/2022 8:35 AM CDT documented as of this encounter Plan of Treatment Upcoming Encounters Date Type Department Care Team ([facility] Contact Info) Description 03/25/2024 9:00 AM ACCOUNT EXECUTIVE AGRIBUSINESS Office Visit [facility] [place] [address] [facility] [address] [place] [phone] Jose Alejandro Dave PA-C [address] [place] [address] 03/25/2024 9:30 AM ACCOUNT EXECUTIVE AGRIBUSINESS Office Visit [facility] [place] [address] [facility] [address] [place] [phone] 1, Sh Wl Diet, RD documented as of this encounter Visit Diagnoses Not on filedocumented in this encounter Care Teams Marble Coper Relationship Specialty Start Date End Date Cristal Dubose MD [facility] [address] [place] [address] PCP - General Internal Medicine 10/13/18 Kiel Miles, PhD GRADY AND [employer] [address] [place] [id number] Assigned Behavioral Health Provider 05/19/22 Kris Vail MD [address] [place] [address] Assigned Surgical Provider 09/08/22 10/19/22 Jose Alejandro Dave PA-C [address] [place] [address] [address] Assigned Surgical Provider 10/20/22 02/22/23 Christie Kelly PA-C [address] [place] [address] Assigned Surgical Provider 02/23/23 05/15/23 Jose Alejandro Dave PA-C [address] [place] [address] [address] Assigned Surgical Provider 05/16/23 documented as of this encounter
--- OUTSIDE RECORDS SUMMARY | 2023-10-22 06:06 | XMS_ITS | Encounter Summary ---
Author Organization [place] Address [address] [place] [address]. [place] [address] Care Team Providers Care Residency Coordinator Name Role Phone Cristal Dubose MD Primary Care Provider Kiel Miles PhD Unavailable [phone] Kris Vail MD Unavailable [phone] Jose Alejandro Dave-C Unavailable [phone] Christie Kelly-C Unavailable [phone] Jose Alejandro Dave-C Unavailable [phone] Encounter Details Date Type Department Care Team (Late st Contact Info) Description 04/23/2022 MyC Medical Advice [facility] [address] [place] [phone] Marcela Perez, EPI [facility] [address] [place] [address] [address] [place] 235115 Social History Tobacco Use Types Packs/Day Years Used Date Smoking Tobacco: Never Smokeless Tobacco: Never Sex and Gender Information Value Date Recorded Sex Assigned at Female 04/21/2022 8:20 PM ARCHITECTURAL TECHNOLOGIST Gender Identity Female 04/21/2022 8:20 PM ARCHITECTURAL TECHNOLOGIST Sexual Orientation Straight 04/21/2022 8: 20 PM ARCHITECTURAL TECHNOLOGIST documented as of this encounter Plan of Treatment Upcoming Encounters Date Type Department Care Team (Late st Contact Info) Description 03/25/2024 9:00 AM ARCHITECTURAL TECHNOLOGIST Office Visit [facility] [place] [address] [facility] [address] [place] [phone] Jose Alejandro Dave PA-C [address] [place] [address] [id number] 03/25/2024 9:30 AM ARCHITECTURAL TECHNOLOGIST Office Visit [facility] [place] [address] [facility] [address] [place] [phone] 1, Sh Wl Diet, RD documented as of this encounter Visit Diagnoses Not on filedocumented in this encounter Care Teams Residency Coordinator Relationship Specialty Start Date End Date Cristal Dubose MD [facility] [address] [place] [address] PCP - General Internal Medicine 10/13/18 Kiel Miles, PhD GRADY AND [employer] [facility] [address] [place] [id number] Assigned Behavioral Health Provider 05/19/22 Kris Vail MD [address] [place] [address] Assigned Surgical Provider 09/08/22 10/19/22 Jose Alejandro Dave PA-C [address] [place] [address] Assigned Surgical Provider 10/20/22 02/22/23 Christie Kelly PA-C [address] [place] [id number] Assigned Surgical Provider 02/23/23 05/15/23 Jose Alejandro Dave PA-C [address] [address] Assigned Surgical Provider 05/16/23 documented as of this encounter
[2023-10-22] MEDS: BUPIVACAINE 0.5 %/EPI 1:200K INJECTION (07:10)
--- NOTE | 2023-10-22 07:40 | PM.ORPRC ---
Procedure Note Date of procedure: 10/22/23 Procedure: Preop diagnosis: Right upper extremity carpal tunnel syndrome Postop diagnosis: Right upper extremity carpal tunnel syndrome Procedure: Right upper extremity carpal tunnel release Anesthesia: Local Surgeon: Obi Lucas MD assistant director of nursing: MELANIE Villalpando EBL: 2 mL Complications: None Specimens: None Drains: None Indications: The patient has a history of right upper extremity carpal tunnel syndrome symptoms. Despite appropriate nonoperative management consisting of nighttime bracing and occupational therapy they continue to have symptoms. Operative intervention was recommended. The risks, benefits alternatives and expected outcomes were discussed in detail. These included but were not limited to: Infection, bleeding, injury to blood vessel or nerve, venous thromboembolism. All questions were answered to their satisfaction. The patient was placed supine on the operating room table. Local anesthesia was established with 0.5% Marcaine with epinephrine and 2% lidocaine with epinephrine. The hand was prepped and draped in usual sterile fashion. A longitudinal incision was made centered over the radial border of the ring finger at the base of the palm. Subcutaneous dissection was sharply taken through the palmar fascia and the palmaris brevis to the transverse carpal ligament. The ligament was divided in line with the incision. Proximal and distal dissection was carried with tenotomy and Metzenbaum scissors for a wide decompression of the carpal tunnel. The wound was closed with a 3-0 nylon. A bulky dry dressing was applied, sponge and needle counts were correct x 2. The patient tolerated the procedure well, there were no apparent complications. They were sent to same day surgery in satisfactory condition. Plan: Use of the hand as tolerates. Discontinue the intraoperative dressing on postoperative day 3 and may get the wound wet as tolerates. Follow up in the office in 2 weeks for a wound check and suture removal.
== END 2023-10-22 07:58 | disposition home or self-care (01) ==
LOC: OR 06:03
PROVIDERS: PCP Internal Medicine; Visit Provider Orthopaedic Surgery
PROC: (CPT 64721; principal; 2023-10-22 07:15)
DX: G56.01 Carpal tunnel syndrome, right upper limb (principal)
CPT/HCPCS: 64721; J3490

== ENCOUNTER 2023-11-26 06:05 | Day surgery (SDC) | payer BC, SELFPAY ==
[2023-11-26] VITALS (9 sets, daily range): BP systolic 112–120; BP diastolic 64–80; PULSE 55–60; RESP 12–16; TEMP 36.3; O2SAT 96–100; BMI 30.5
--- OUTSIDE RECORDS SUMMARY | 2023-11-26 06:06 | XMS_ITS | Clinical Summary ---
Author Organization [facility] Address [place], [place] [address] Care Team Providers Care Otolaryngology Surgeon Name Role Phone Cristal Dubose MD Primary Care Provider [phone] Allergies Active Allergy Reactions Criticality Noted Date [...] Comments Blood Pressure 129/86 05/16/2022 11:25 AM TENSIONING MACHINE OPERATOR Pulse 66 05/16/2022 11:25 AM TENSIONING MACHINE OPERATOR Temperature 36.8 ??C (98.3 ??F) 04/24/2022 1:17 PM CS T Respiratory Rate 16 08/15/2020 5:15 PM CDT Oxygen Saturation 98% 05/16/2022 11:25 AM TENSIONING MACHINE OPERATOR Inhaled Oxygen Concentration - - Weight 134.3 kg (296 lb) 04/12/2021 9:44 AM TENSIONING MACHINE OPERATOR Height 185.4 cm (6' 0.99) 11/09/2020 12:10 [...] this topic Medical Devices Implanted Type Area Photo Editor Device Identifier Shelf Expiration Date Model / Serial / Lot Screw Bio-Tenodisis [id number] - [id number] Implanted:Qty: 1 on 09/03/2008 at [facility] Left: Ankle [employer] 05/23/2009 AR-1555B# / / [id number] Screw Bio-Tenodesis [id number] - [id number] Implanted:Qty: 1 on 09/03/2008 at [facility] Left: Ankle [employer] 01/20/2010 AR-1547B# / / [id number] Implant On The [facility] - [id number] Implanted:Qty: 1 on 09/03/2008 at [facility] Left: Ankle [employer] 08/16/2013 1111A-FF# / / [id number] Description:Tibialis Anterio r (W) Tissue #[id number](A) Frozen, Irrad Tendon Ant Tibialis 1111a-Ff - [id number] Implanted:Qty: 1 on 12/30/2008 at [facility] Right: Ankle [employer] 11/18/2013 1111A-FF# / / TISSUE ID#: [id number] Screw Bio-Tenodesis [id number] - [id number] Implanted:Qty: 1 on 12/30/2008 at [facility] Right: Ankle [employer] 09/20/2010 AR-1547B# / / [id number] Screw Bio-Tenodesis [id number] - [id number] Implanted:Qty: 1 on 12/30/2008 at [facility] Right: Ankle [employer] 01/20/2010 AR-1547B# / / [id number] Ar[employer]rex Pip Implant, Straight, 12 Mm With Intrumentation Implanted:Qty: 2 on 08/15/2020 by Aj Milian DPM at [facility] Bilateral : Foot [employer] 05/22/2025 AR-4158DS -12S / AR-4158DS -12S / [id number] [employer] Pip Implant, Straight, 12 Mm With Intrumentation Implanted:Qty: 1 on 08/15/2020 by Aj Milian DPM at [facility] Right: Foot [employer] 03/21/2025 AR-4158DS -12S / / [id number] Procedures Procedure Name Priority Date/Time Associated Diagnosis Comments XR MAMMO BILAT DIAG FFDM (IA) Routine 08/25/2007 2:29 PM CDT Signs And Symptoms In Breast Other Lump Or Mass In Breast JUNIOR ART DIRECTOR THIN PREP PAP SCREEN IMAGED Routine 07/29/2007 [...] Benign Finding. Eleonora Magaña MD MAMMO * JUNIOR ART DIRECTOR THIN PREP PAP SCREEN IMAGED (07/29/2007 3:17 PM CDT) CYTOLOGY ??CYTOPATHOLOGY REPORT ??[facility] ?? Status: Final Report ? [id number] ?? CLINICAL INFORMATION ?LMP ? : 07/16/07 ?Previous Pap Date ? : 07/03/06 ?Previous PAP Dx ? : Negative for intraepithelial lesion or ?malignancy. ?Previous Longton/bx date : None ?Previous Colposcopy/Bx: None ?Hormone Usage ? : BCP/OCP/Patch/Ring ?Menstrual Status ?: Regular Periods ?Appearance of Cervix ??: Not given ?Longton/Bx done today ?: No ?HPV Request ? [...] 07/29/07 ?? ACCESSIONED: 07/29/07 ?? SIGNED: 08/06/07 [facility] Cervical (Cervical) 07/29/2007 3:17 PM CDT 07/29/2007 3:16 PM CDT Zoë Martinez MD PATHOLOGY/CYTOLOGY [facility]OR[facility] INTERNAL ZIP [address] [address] * LIPID PANEL (10/20/2004 9:47 AM CDT) CHOLESTEROL,TOTAL 186 110 - 199 mg/dL [facility] TRIGLYCERIDES 90 40 - 149 mg/dL [facility] HDL CHOLESTEROL 64 41 - 95 mg/dL [facility] CHOL/HDL RATIO 2.91 <4.51 [facility] LDL CHOLESTEROL 104 60 - 130 mg/dL [facility] PATIENT STATUS Fasting [facility] 10/20/2004 9:47 AM CDT 10/20/2004 12:30 PM CDT Zoë Martinez MD CHEMISTRY [facility] SENDOUT INTERNAL ZIP [address] [address] [place] [address] from Last 3 Months or Most Recently Relevant to Health Maintenance Advance Directives * Full Code (Latest Code Status on File) Date Activated Date Inactivated Comments 08/15/2020 11:45 AM 08/15/2020 7:45 PM Question Answer Comments Code Status Discussion: Discussed * Full Code Date Activated Date Inactivated Comments 08/15/2020 11:45 AM 08/15/2020 11:45 AM Question Answer Comments Code Status Discussion: Discussed Care Teams Otolaryngology Surgeon Relationship Specialty Start Date End Date Cristal Dubose MD PCP - General 07/28/08
--- OUTSIDE RECORDS SUMMARY | 2023-11-26 06:06 | XMS_ITS | Clinical Summary ---
Author Organization [facility] Address [address] [place] [address] Care Team Providers Care Biology Adjunct Instructor Name Role Phone Cristal Dubose MD Primary Care Provider Kiel Miles PhD Unavailable [phone] Jose Alejandro Dave PA-C Unavailable Allergies Active Allergy Reactions Criticality Noted Date [...] Team Description 10/09/2023 1:00 PM CDT Lab [facility] [address] [id number] Bariatric surgery status; Postsurgical malabsorption 10/09/2023 9:30 AM CDT Office Visit [facility] [place] [address] [address] [phone] 1, Sh Wl Diet, RD Bariatric surgery status (Primary Dx); Postsurgical malabsorption; Overweight with body mass index (BMI) of 29 to 29.9 in adult 10/09/2023 9:00 AM CDT Office Visit [facility] [place] [address] [address] [phone] Jose Alejandro Dave PA-C Overweight with body mass index (BMI) of 29 to 29.9 in adult (Primary Dx); Bariatric surgery status; Postsurgical malabsorption 10/09/2023 Travel 10/08/2023 MyC Medical Advice [facility] [place] [id number] [facility] [address] [phone] Alesia Oreilly CMA 10/02/2023 MyC Medical Advice [facility] [place] [phone] [facility] [address] [place] [phone] Alesia Oreilly CMA from Last 3 Months [...] Sex Assigned at Female 04/21/2022 8:20 PM FINANCIAL REPORTING SPECIALIST Gender Identity Female 04/21/2022 8:20 PM FINANCIAL REPORTING SPECIALIST Sexual Orientation Straight 04/21/2022 8: 20 PM FINANCIAL REPORTING SPECIALIST Last Filed Vital Signs Vital Sign Reading [...] st Contact Info) Description 03/25/2024 9:00 AM FINANCIAL REPORTING SPECIALIST Office Visit [facility] [place] [address] [facility] [address] [place] [phone] Jose Alejandro Dave PA-C [address] [address] 03/25/2024 9:30 AM FINANCIAL REPORTING SPECIALIST Office Visit [facility] [place] [address] [facility] [address] [place] [phone] 1, Sh Wl Diet, RD Health Maintenance Due Date Last Done Comments ADVANCE CARE PLANNING 1963 ANNUAL REVIEW OF HM ORDERS [address] CT COLONOGRAPHY 1963 FIT 1963 FLEX SIG 1963 MAMMO SCREENING 1963 YEARLY PREVENTIVE VISIT 1963 sDNA (Cologuard) 1965 COLONOSCOPY 11/11/1973 COLORECTAL CANCER SCREENING 11/11/1973 HIV SCREENING 11/11/1978 HEPATITIS C SCREENING 11/11/1981 PAP 11/11/1984 PHQ-2 (once per calendar year) 2023 LIPID 09/17/2023 09/16/2018 RSV VACCINE ( & 60+) (1 - 1-dose 60+ series) 2023 INFLUENZA VACCINE (#1) 2023 , 01/26/2022, 01/26/2022, Additional history exists GLUCOSE 10/12/2025 10/12/2022, 09/21, 09/16/2018 DTAP/TDAP/TD IMMUNIZATION (4 - Td or Tdap) 11/01/2026 11/01/2016, 01/01/2016, 07/03/2006, Additional history exists Pneumococcal Vaccine: Pediatrics (0 to 5 Years) and At-Risk Patients (6 to 64 Years) Aged Out 11/28/2017 No longer eligible based on patient's age to complete this topic ZOSTER IMMUNIZATION Completed 08/19/2018, 8 COVID-19 Vaccine Completed 04/25/2023, , 03/07/2021, Additional [...] 10:13 AM CDT 10/09/2023 10:13 AM CDT [facility] - 10/09/2023 6:18 PM CDT Season, race, dietary intake, and treatment affect the concentration of 28-jcjnved-Jkjuzsw D. Values may decrease during winter months and increase during summer months. Vitamin D determination is routinely performed by an immunoassay specific for 25 hydroxyvitamin D3. ??If an individual is on vitamin D2(ergocalciferol) supplementation, please specify 25 OH vitamin D2 and D3 level determination by LCMSMS test VITD23. Jose Alejandro Dave PA-C LAB - BLOOD ORD ERABLES [facility] [address] [facility], [address] [place] [address] * Vitamin A (10/09/2023 10:13 AM CDT) Vitamin A 0.66 0.30 - 1.20 mg/L 10/11/2023 7:52 AM CDT [facility] Retinol Palmitate <0.02 0.00 - 0.10 mg/L 10/11/2023 7:52 AM CDT [facility] Vitamin A Interp Normal 10/11/19 7:52 AM CDT [facility] Comment: This test was developed and its performance characteristics determined by [facility]. It has not been cleared or approved by the [place] Food and Drug Administration. This test was performed in a CLIA certified laboratory and is intended for clinical purposes. Performed By: [facility] [address] [place] [address] Business Services Clerk: Oni Atwood MD, PhD CLIA Number: [id number] Blood STRUCTURE OF LEFT UPPER LIMB / Unknown Venipuncture / Unknown 10/09/2023 10:13 AM CDT 10/09/2023 10:13 AM CDT Jose Alejandro Dave PA-C LAB - BLOOD ORD ERABLES [employer] [address] [place] [address] [phone] * Parathyroid Hormone Intact (10/09/2023 10:13 AM [...] differs from PTH assays used in other [facility] laboratories. Jose Alejandro Dave PA-C LAB - BLOOD ORD ERABLES LABORATORY [facility] [address], [address] [place] [address], [place] [phone] * Iron and Iron Binding Capacity (10/09/2023 [...] Dave PA-C LAB - BLOOD ORD ERAJOVITA LABORATORY [facility] [address], [address] [place] [address], [place] [phone] * Ferritin (10/09/2023 10:13 AM CDT) Ferritin 52 11 - 328 ng/mL 10/09/2023 6:18 PM CDT [facility] Blood STRUCTURE OF LEFT UPPER LIMB / Unknown Venipuncture / Unknown 10/09/2023 10:13 AM CDT 10/09/2023 10:13 AM CDT Jose Alejandro Dave PA-C LAB - BLOOD ORD ERABLES [facility] [address] [facility], [address] * Vitamin B12 (10/09/2023 10:13 AM CDT) Pathologist [facility] Vitamin B12 1,148 232 - 1,245 pg/mL 10/09/2023 6:18 PM CDT [facility] Blood STRUCTURE OF LEFT UPPER LIMB / Unknown Venipuncture / Unknown 10/09/2023 10:13 AM CDT 10/09/2023 10:13 AM CDT Pedro Luisalphonso Emmanuel Dave PA-C LAB - BLOOD ORD ERABLES Performing Organization Address City/[facility]/ZIP Co de Phone Number U LABORATORY [facility] [address] [facility], [address] * CBC with platelets (10/09/2023 10:13 AM CDT) [facility] WBC Count 5.8 4.0 - 11.0 [...] PA-C LAB - BLOOD ORD ERABLES LABORATORY [facility] [address], [address] [place] [address], [facility] [phone] * Glucose (10/12/2022 7:31 AM CDT) Glucose 99 70 - 99 mg/dL 10/12/2022 8:17 AM CDT LABORATORY Blood STRUCTURE OF RIGHT UPPER LIMB / Unknown Venipuncture / Unknown 10/12/2022 7:31 AM CDT 10/12/2022 7:45 AM CDT Kris Vail MD LAB - BLOOD ORDERABL ES Performing Organization Address City/[facility]/ZIP Co de Phone Number LABORATORY [facility] [address], [address] [place] [address], [place] [phone] * (ABNORMAL) Lipid Profile (09/16/2018) Cholesterol 259(A) 90 - 200 MG/DL [facility] Triglycerides 167 40 - 197 MG/DL [facility] HDL Cholesterol 68 >=50 mg/dL [facility] LDL Cholesterol Calculated 158(H) <100 mg/dL [facility] Blood specimen (specimen) 09/16/2018 Narrative [facility] - 09/16/2018 LAB RESULTS WAUBUN Provider Outside LAB - BLOOD ORDERABL ES [facility] [address] [place] [address], [place] [phone] from Last 3 Months or Most Recently Relevant to Health Maintenance Advance Directives For more information, please contact: [phone] * Full Code (Latest Code Status on File) Date Activated Date Inactivated Comments 10/11/2022 11:26 AM 10/12/2022 1:34 PM All basic a nd advanced life-sustaining interventions are performed as appropriate Question Answer Comments Code status determined by: Unable to dis cuss and no AD/POLST on file; continue PREVIOUSLY ORDERED code status Care Teams Biology Adjunct Instructor Relationship Specialty Start Date End Date Cristal Dubose MD [facility] [address] [place] [address] PCP - General Internal Medicine 10/13/18 Kiel Miles, PhD GRAD[employer] [facility] [address] [address] Assigned Behavioral Health Provider 05/19/22 Jose Alejandro Dave PA-C [address] [address] Assigned Surgical Provider 05/16/23
--- OUTSIDE RECORDS SUMMARY | 2023-11-26 06:07 | XMS_ITS | Encounter Summary ---
Author Organization [facility] Address [address] [place] [address]. [place] [address] Care Team Providers Care Community Representative Name Role Phone Cristal Dubose MD Primary Care Provider [phone] Kiel Miles PhD Unavailable [phone] Kris Vail MD Unavailable [phone] JoseA lejandro Dave-C Unavailable [phone] Christie Kelly-C Unavailable [phone] Jose Alejandro Dave-C Unavailable [phone] Encounter Details Date Type Department Care Team (Late st Contact Info) Description 08/22/2022 MyC Medical Advice [facility] [place] [address] [place] [phone] Marcela Perez, EPI [facility] [address] [place], [place] [phone] Social History Tobacco Use Types Packs/Day Years Used Date Smoking Tobacco: Never Smokeless Tobacco: Never Sex and Gender Information Value Date Recorded Sex Assigned at Female 04/21/2022 8:20 PM SHAKER REPAIRER Gender Identity Female 04/21/2022 8:20 PM SHAKER REPAIRER Sexual Orientation Straight 04/21/2022 8: 20 PM SHAKER REPAIRER COVID-19 Exposure Response Date Recorded In the last 10 days, have yo u been in contact with someone who was confirmed or suspected to have Coronavirus/COVID-19? No / Unsure 08/22/2022 9:45 AM CDT documented as of this encounter Plan of Treatment Upcoming Encounters Date Type Department Care Team (Late st Contact Info) Description 03/25/2024 9:00 AM SHAKER REPAIRER Office Visit [facility] [place] [address] [facility] [address] [phone] Jose Alejandro Dave PA-C [address] [place], [place] [address] 03/25/2024 9:30 AM SHAKER REPAIRER Office Visit [facility] [address] [place] [phone] 1, Sh Wl Diet, RD documented as of this encounter Visit Diagnoses Not on filedocumented in this encounter Care Teams Community Representative Relationship Specialty Start Date End Date Cristal Dubose MD [facility] [address] [place] [address] PCP - General Internal Medicine 10/13/18 Kiel Miles, PhD [employer] [address] [address] Assigned Behavioral Health Provider 05/19/22 Kris Vail MD [address] [place] [address] Assigned Surgical Provider 09/08/22 10/19/22 Jose Alejandro Dave PA-C [address] [place] [id number] Assigned Surgical Provider 10/20/22 02/22/23 Christie Kelly PA-C [address] [place] [address] Assigned Surgical Provider 02/23/23 05/15/23 Jose Alejandro Dave PA-C [address] [address] Assigned Surgical Provider 05/16/23 documented as of this encounter
--- OUTSIDE RECORDS SUMMARY | 2023-11-26 06:07 | XMS_ITS | Encounter Summary ---
Author Organization [facility] Address [address] [place] [address]. [place] [address] Care Team Providers Care Transportation Specialist Name Role Phone Cristal Dubose MD Primary Care Provider Kiel Miles PhD Unavailable [phone] Jose Alejandro Dave PA-C Unavailable [phone] Encounter Details Date Type Department Care Team [...] Sex Assigned at Female 04/21/2022 8:20 PM BLACK TOP SPREADER MACHINE OPERATOR Gender Identity Female 04/21/2022 8:20 PM BLACK TOP SPREADER MACHINE OPERATOR Sexual Orientation Straight 04/21/2022 8: 20 PM BLACK TOP SPREADER MACHINE OPERATOR documented as of this encounter Plan of Treatment Upcoming Encounters Date Type Department Care Team (Late st Contact Info) Description 03/25/2024 9:00 AM BLACK TOP SPREADER MACHINE OPERATOR Office Visit [facility] [place] [address] [facility] [address] [place] [phone] Jose Alejandro Dave PA-C [address] [facility] [address] [id number] 03/25/2024 9:30 AM BLACK TOP SPREADER MACHINE OPERATOR Office Visit [facility] [place] [address] [facility] [address] [place] [phone] 1, Sh [address] documented as of this encounter Visit Diagnoses Not on filedocumented in this encounter Care Teams Transportation Specialist Relationship Specialty Start Date End Date Cristal Dubose MD [facility] [address] [place] [address] PCP - General Internal Medicine 10/13/18 Kiel Miles, PhD GRADY AND [employer] [facility] [address] [place] [address] Assigned Behavioral Health Provider 05/19/22 Jose Alejandro Dave PA-C [address] [address] Assigned Surgical Provider 05/16/23 documented as of this encounter
--- OUTSIDE RECORDS SUMMARY | 2023-11-26 06:07 | XMS_ITS | Encounter Summary ---
Author Organization [place] Address [facility] [place] [address] Care Team Providers Care Legal Editor Name Role Phone Cristal Dubose MD Primary Care Provider Kiel Miles PhD Unavailable [phone] Jose Alejandro Dave PA-C Unavailable [phone] Encounter Details Date Type Department Care Team (Late st Contact Info) Description 10/09/2023 1:00 PM CDT Lab [facility] Laboratory [address] [facility] [place] [phone] Bariatric surgery status; Postsurgical malabsorption Social History [...] Sex Assigned at Female 04/21/2022 8:20 PM NAIL SETTER Gender Identity Female 04/21/2022 8:20 PM NAIL SETTER Sexual Orientation Straight 04/21/2022 8: 20 PM NAIL SETTER documented as of this encounter Plan of Treatment Upcoming Encounters Date Type Department Care Team (Late st Contact Info) Description 03/25/2024 9:00 AM NAIL SETTER Office Visit [facility] [place] [address] [facility] [facility] [address] [place] [phone] Jose Alejandro Dave PA-C [address] [place] [address] 03/25/2024 9:30 AM NAIL SETTER Office Visit [facility] [place] [address] [place] [phone] 1, Sh Wl Diet, RD documented as [...] developed and its performance characteristics determined by [facility]. It has not been cleared or approved by the US Food and Drug Administration. This test was performed in a CLIA certified laboratory and is intended for clinical purposes. Performed By: [facility] [address] [place] [address] Time Clock Mechanic: Oni Atwood MD, PhD CLIA Number: [id number] Blood STRUCTURE OF LEFT UPPER LIMB / Unknown Venipuncture / Unknown 10/09/2023 10:13 AM CDT 10/09/2023 10:13 AM CDT Jose Alejandro Dave PA-C LAB - BLOOD ORD ERABLES [facility] [address] [place] [address] [phone] * Ferritin (10/09/2023 10:13 AM CDT) Ferritin 52 11 - 328 ng/mL 10/09/2023 6:18 PM CDT U LABORATORY Blood STRUCTURE OF LEFT UPPER LIMB / Unknown Venipuncture / Unknown 10/09/2023 10:13 AM CDT 10/09/2023 10:13 AM CDT Jose Alejandro Dave PA-C LAB - BLOOD ORD ERABLES U LABORATORY [facility] [address] [facility], [address] [address] * Iron and Iron Binding Capacity [...] AARON-Gideon LAB - BLOOD ORD ERABLES LABORATORY [facility] Lab [address] floor, [address] [place] [address], [facility] [phone] * Parathyroid Hormone Intact (10/09/2023 10:13 AM [...] differs from PTH assays used in other [facility] laboratories. Jose Alejandro Vincentnilson TAPIA LAB - BLOOD ORD ERABLES Performing Organization Address City/[facility]/ZIP Co de Phone Number LABORATORY [facility] Lab [address] floor, [address] [address], [facility] [phone] * Vitamin D Screen (10/09/2023 10:13 AM CDT) Vitamin D, Total (25-Hydroxy) 39 20 - 50 ng/mL 10/09/2023 6:18 PM CDT U LABORATORY Comment:optimum levels Blood STRUCTURE OF LEFT UPPER LIMB / Unknown Venipuncture / Unknown 10/09/2023 10:13 AM CDT 10/09/2023 10:13 AM CDT Narrative LABORATORY - 10/09/2023 6:18 PM CDT Season, race, dietary intake, and treatment affect the concentration of 99-vilgrlv-Iqkwzvz D. Values may decrease during winter months and increase during summer months. Vitamin D determination is routinely performed by an immunoassay specific for 25 hydroxyvitamin D3. ??If an individual is on vitamin D2(ergocalciferol) supplementation, please specify 25 OH vitamin D2 and D3 level determination by LCMSMS test VITD23. Jose Alejandro Dave PA-C LAB - BLOOD ORD ERABLES U LABORATORY [facility] [address] [facility], [address] [phone] * Vitamin B12 (10/09/2023 10:13 AM CDT) [facility] [place] Vitamin B12 1,148 232 - 1,245 pg/mL 10/09/2023 6:18 PM CDT U LABORATORY Blood STRUCTURE OF LEFT UPPER LIMB / Unknown Venipuncture / Unknown 10/09/2023 10:13 AM CDT 10/09/2023 10:13 AM CDT Jose Alejandro Dave PA-C LAB - BLOOD ORD ERABLES Performing Organization Address City/[facility]/ZIP Co de Phone Number U LABORATORY [facility] [address] [facility], [address] [phone] * CBC with platelets (10/09/2023 10:13 AM CDT) [facility] [place] WBC Count 5.8 4.0 - 11.0 10e3/uL [...] PA-C LAB - BLOOD ORD ERABLES LABORATORY [facility] Lab [address] floor, [address] [place] [address], [facility] [phone] documented in this encounter Visit Diagnoses Diagnosis Bariatric surgery status 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 documented in this encounter Care Teams Legal Editor Relationship Specialty Start Date End Date Cristal Dubose MD [facility]NOTE 2[facility] [address] [place] [address] PCP - General Internal Medicine 10/13/18 Keil Miles, PhD GRADY AND Fwd: [employer] [facility] [address] [place] [address] Assigned Behavioral Health Provider 05/19/22 Jose Alejandro Dave PA-C [address] [place] [address] [address] Assigned Surgical Provider 05/16/23 documented as of this encounter
--- OUTSIDE RECORDS SUMMARY | 2023-11-26 06:07 | XMS_ITS | Encounter Summary ---
Author Organization [place] Address [address] [place] [address] Care Team Providers Care Supervisor Coin Machine Name Role Phone Cristal Dubose MD Primary Care Provider Kiel Miles PhD Unavailable [phone] Jose Alejandro Dave PA-C Unavailable [phone] Encounter Details Date Type Department Care Team (Late st Contact Info) Description 10/02/2023 MyC Medical Advice [facility] [address] [place] [phone] Alesia Oreilly, EXPLORATION DRILLER Social History Tobacco Use Types Packs/Day Years Used Date Smoking Tobacco: Never Smokeless Tobacco: Never Alcohol Use Standard Drinks/Week Comments Yes 0 (1 standard drink = 0.6 oz pur e alcohol) occassional Adolescent Education Answer Date Record ed Getting School Help Needed Not on file 01/18 Sex and Gender Information Value Date Recorded Sex Assigned at Female 04/21/2022 8:20 PM ENGINEERING AGENT Gender Identity Female 04/21/2022 8:20 PM ENGINEERING AGENT Sexual Orientation Straight 04/21/2022 8: 20 PM ENGINEERING AGENT documented as of this encounter Plan of Treatment Upcoming Encounters Date Type Department Care Team (Late st Contact Info) Description 03/25/2024 9:00 AM ENGINEERING AGENT Office Visit [facility] [place] [address] [facility] [address] [place] [phone] Jose Alejandro Dave PA-C [address] [place] [address] [address] 03/25/2024 9:30 AM ENGINEERING AGENT Office Visit [facility] [place] [address] [facility] [address] [place] [phone] 1, Sh Keeley Castro, LEIGHANN documented as of this encounter Visit Diagnoses Not on filedocumented in this encounter Care Teams Supervisor Coin Machine Relationship Specialty Start Date End Date Cristal Dubose MD [facility] [address] [place] [address] PCP - General Internal Medicine 10/13/18 Kiel Miles, PhD GRADY AND [facility] [address] [place] [address] Assigned Behavioral Health Provider 05/19/22 Jose Alejandro Dave PA-C [address] [place] [address] [address] Assigned Surgical Provider 05/16/23 documented as of this encounter
--- OUTSIDE RECORDS SUMMARY | 2023-11-26 06:07 | XMS_ITS | Encounter Summary ---
Author Organization [place] Address [address] [place] [address] Care Team Providers Care Radiology Receptionist Name Role Phone Cristal Dubose MD Primary Care Provider Kiel Miles PhD Unavailable [phone] Kris Vail MD Unavailable [phone] Jose Alejandro Dave-C Unavailable [phone] Christie Kelly-C Unavailable [phone] Jose Alejandro Dave-Gideon Unavailable [phone] Encounter Details Date Type Department Care Team (Late st Contact Info) Description 01/05/[address] [facility] [place] [address] [place] [phone] Marie Corley MA Social History Tobacco Use Types Packs/Day Years Used Date Smoking Tobacco: Never Smokeless Tobacco: Never Sex and Gender Information Value Date Recorded Sex Assigned at Female 04/21/2022 8:20 PM COLLAR CUTTER Gender Identity Female 04/21/2022 8:20 PM COLLAR CUTTER Sexual Orientation Straight 04/21/2022 8: 20 PM COLLAR CUTTER documented as of this encounter Plan of Treatment Upcoming Encounters Date Type Department Care Team (Late st Contact Info) Description 03/25/2024 9:00 AM COLLAR CUTTER Office Visit [facility] [address] [place] [phone] Jose Alejandro Dave PA-C [address] [place] [address] [phone] 03/25/2024 9:30 AM COLLAR CUTTER Office Visit [facility] [place] [address] [facility] [address] [place] [phone] 1, Sh Wl Diet, RD documented as of this encounter Visit Diagnoses Not on filedocumented in this encounter Care Teams Radiology Receptionist Relationship Specialty Start Date End Date Cristal Dubose MD [facility] [address] [place] [address] PCP - General Internal Medicine 10/13/18 Kiel Miles, PhD GRADY AND [employer] [facility] [address] [place] [address] Assigned Behavioral Health Provider 05/19/22 Kris Vail MD [address] [place] [address] Assigned Surgical Provider 09/08/22 10/19/22 Jose Alejandro Dave PA-C [address] [address] Assigned Surgical Provider 10/20/22 02/22/23 Christie Kelly PA-C [address] [place] [address] Assigned Surgical Provider 02/23/23 05/15/23 Jose Alejandro Dave PA-C [address] [address] Assigned Surgical Provider 05/16/23 documented as of this encounter
--- OUTSIDE RECORDS SUMMARY | 2023-11-26 06:07 | XMS_ITS | Referral Summary ---
Author Organization [place] Address [address] [place] [address]. [place] [address] Care Team Providers Care Coke Burner Name Role Phone Cristal Dubose MD Primary Care Provider Kiel Miles PhD Unavailable [phone] Jose Alejandro Dave PA-C Unavailable [phone] Encounters Date Type Department Care Team Description 10/09/2023 1:00 PM CDT Lab [facility] Laboratory [address] [phone] Bariatric surgery status; Postsurgical malabsorption 10/09/2023 Travel 10/09/2023 9:30 AM CDT Office Visit [facility] [address] [place] [phone] 1, Sh Wl Diet, RD Bariatric surgery status (Primary Dx); Postsurgical malabsorption; Overweight with body mass index (BMI) of 29 to 29.9 in adult 10/09/2023 9:00 AM CDT Office Visit [facility] [address] [place] [phone] Jose Alejandro Dave PA-C Overweight with body mass index (BMI) of 29 to 29.9 in adult (Primary Dx); Bariatric surgery status; Postsurgical malabsorption 10/08/2023 MyC Medical Advice [facility] [place] [address] [facility] [address] [place] [phone] Alesia Oreilly CMA 10/02/2023 MyC Medical Advice [facility] [place] [address] [facility] [address] [place] [phone] Alesia Oreilly CMA from Last 3 Months [...] Sex Assigned at Female 04/21/2022 8:20 PM WIRE TURNING MACHINE OPERATOR Gender Identity Female 04/21/2022 8:20 PM WIRE TURNING MACHINE OPERATOR Sexual Orientation Straight 04/21/2022 8: 20 PM WIRE TURNING MACHINE OPERATOR Last Filed Vital Signs Vital Sign Reading [...] st Contact Info) Description 03/25/2024 9:00 AM WIRE TURNING MACHINE OPERATOR Office Visit [facility] [place] [address] [facility] [address] [place] [phone] Jose Alejandro Dave PA-C [address] [address] 03/25/2024 9:30 AM WIRE TURNING MACHINE OPERATOR Office Visit [facility] [place] [address] [facility] [address] [place] [phone] 1, Sh Wl Diet, RD Procedures [...] intake, and treatment affect the concentration of 65-fgujxms-Iawmnhq D. Values may decrease during winter months and increase during summer months. Vitamin D determination is routinely performed by an immunoassay specific for 25 hydroxyvitamin D3. ??If an individual is on vitamin D2(ergocalciferol) supplementation, please specify 25 OH vitamin D2 and D3 level determination by LCMSMS test VITD23. Jose Alejandro Dave PA-C LAB - BLOOD ORD ERABLES LABORATORY [facility] [place] [facility] [address] [facility], [address] [place] [address] * Vitamin A (10/09/2023 10:13 AM CDT) Vitamin A 0.66 0.30 - 1.20 mg/L 10/11/2023 7:52 AM CDT [facility] Retinol Palmitate <0.02 0.00 - 0.10 mg/L 10/11/2023 7:52 AM CDT [facility] Vitamin A Interp Normal 10/11/19 24 7:52 AM CDT [facility] Comment: This test was developed and its performance characteristics determined by [employer]. It has not been cleared or approved by the US Food and Drug Administration. This test was performed in a CLIA certified laboratory and is intended for clinical purposes. Performed By: [facility] [address] [place] [address] Appeals Reviewer Veteran: Oni Atwood MD, PhD CLIA Number: [id number] Blood STRUCTURE OF LEFT UPPER LIMB / Unknown Venipuncture / Unknown 10/09/2023 10:13 AM CDT 10/09/2023 10:13 AM CDT Jose Alejandro Dave PA-C LAB - BLOOD ORD ERAJOVITA Performing Organization Address City/[facility]/ZIP Co de Phone Number [facility] [address] [place] [address], [facility] [phone] * Parathyroid Hormone Intact (10/09/2023 10:13 AM [...] differs from PTH assays used in other [facility] laboratories. Jose Alejandro Dave PA-C LAB - BLOOD ORD ERABLES LABORATORY [facility] [address] floor, [address] [place] [address], [place] [phone] * Iron and Iron Binding Capacity (10/09/2023 10:13 AM CDT) [facility] Iron 52 37 - 145 ug/dL [...] PA-C LAB - BLOOD ORD ERABLES LABORATORY [facility] [address] floor, [address] [place] [address], [place] [phone] * Ferritin (10/09/2023 10:13 AM CDT) Pathologist [facility] Ferritin 52 11 - 328 ng/mL 10/09/2023 6:18 PM CDT [facility] Blood STRUCTURE OF LEFT UPPER LIMB / Unknown Venipuncture / Unknown 10/09/2023 10:13 AM CDT 10/09/2023 10:13 AM CDT Jose Alejandro Dave PA-C LAB - BLOOD ORD ERAJOVITA U LABORATORY [facility] [place] [facility] [address] [facility], [address] * Vitamin B12 (10/09/2023 10:13 AM CDT) Pathologist [facility] Vitamin B12 1,148 232 - 1,245 pg/mL 10/09/2023 6:18 PM CDT [facility] Blood STRUCTURE OF LEFT UPPER LIMB / Unknown Venipuncture / Unknown 10/09/2023 10:13 AM CDT 10/09/2023 10:13 AM CDT Jose Alejandro Dave PA-C LAB - BLOOD ORD ASHLEY Performing Organization Address City/[facility] Co de Phone Number U LABORATORY [facility] [place] [facility] [address] [facility], [address] * CBC with platelets (10/09/2023 10:13 AM CDT) [facility] WBC Count 5.8 4.0 - 11.0 [...] PA-C LAB - BLOOD ORD ERABLES LABORATORY [facility] [address] floor, [address] [place] [address], [place] [phone] * Glucose (10/12/2022 7:31 AM CDT) Glucose 99 70 - 99 mg/dL 10/12/2022 8:17 AM CDT LABORATORY Blood STRUCTURE OF RIGHT UPPER LIMB / Unknown Venipuncture / Unknown 10/12/2022 7:31 AM CDT 10/12/2022 7:45 AM CDT Kris Vail MD LAB - BLOOD ORDERABL ES LABORATORY [facility] [address] floor, [address] [place] [address], [place] [phone] * (ABNORMAL) Lipid Profile (09/16/2018) Cholesterol 259(A) 90 - 200 MG/DL [facility] Triglycerides 167 40 - 197 MG/DL [facility] HDL Cholesterol 68 >=50 mg/dL [facility] LDL Cholesterol Calculated 158(H) <100 mg/dL [facility] Blood specimen (specimen) 09/16/2018 Narrative [facility] - 09/16/2018 LAB RESULTS PLEVNA Provider Outside LAB - BLOOD ORDERABL ES [facility] [address] [place] [address], [facility] [phone] from Last 3 Months or Most Recently Relevant to Health Maintenance Advance Directives For more information, please contact: [phone] * Full Code (Latest Code Status on File) Date Activated Date Inactivated Comments 10/11/2022 11:26 AM 10/12/2022 1:34 PM All basic a nd advanced life-sustaining interventions are performed as appropriate Question Answer Comments Code status determined by: Unable to dis cuss and no AD/POLST on file; continue PREVIOUSLY ORDERED code status Care Teams Coke Burner Relationship Specialty Start Date End Date Cristal Dubose MD [facility] [address] [place] [address] PCP - General Internal Medicine 10/13/18 Kiel Miles, PhD GRADY AND ASSOC [facility] [address] [place] [address] Assigned Behavioral Health Provider 05/19/22 Jose Alejandro Dave PA-C [address] [address] Assigned Surgical Provider 05/16/23
--- OUTSIDE RECORDS SUMMARY | 2023-11-26 06:07 | XMS_ITS | Encounter Summary ---
Author Organization [place] Address [address] [place] [address]. [place] [address] Care Team Providers Care Vulnerability Researcher Name Role Phone Cristal Dubose MD Primary Care Provider Kiel Miles PhD Unavailable [phone] Kris Vail MD Unavailable [phone] Jose Alejandro Dave-C Unavailable [phone] Christie Kelly-C Unavailable [phone] Jose Alejandro Dave-C Unavailable [phone] Encounter Details Date Type Department Care Team (Late st Contact Info) Description 06/25/2022 [facility] Nutrition Services [address] [place] [address] , [address] [place] [phone] [facility] Social History Tobacco Use Types Packs/Day Years Used Date Smoking Tobacco: Never Smokeless Tobacco: Never Sex and Gender Information Value Date Recorded Sex Assigned at Female 04/21/2022 8:20 PM BLENDING LINE ATTENDANT Gender Identity Female 04/21/2022 8:20 PM BLENDING LINE ATTENDANT Sexual Orientation Straight 04/21/2022 8: 20 PM BLENDING LINE ATTENDANT COVID-19 Exposure Response Date Recorded In the last 10 days, have yo u been in contact with someone who was confirmed or suspected to have Coronavirus/COVID-19? No / Unsure 06/25/2022 9:58 AM BLENDING LINE ATTENDANT documented as of this encounter Plan of Treatment Upcoming Encounters Date Type Department Care Team (Late st Contact Info) Description 03/25/2024 9:00 AM BLENDING LINE ATTENDANT Office Visit [facility] [place] [address] [facility] [address] [place] [phone] Jose Alejandro Dave PA-C [address] [place] [id number] 03/25/2024 9:30 AM BLENDING LINE ATTENDANT Office Visit [facility] [place] [address] [facility] [address] [place] [phone] 1, Sh Wl Diet, RD documented as of this encounter Visit Diagnoses Not on filedocumented in this encounter Care Teams Vulnerability Researcher Relationship Specialty Start Date End Date Cristal Dubose MD [facility] [address] [place] [address] PCP - General Internal Medicine 10/13/18 Kiel Miles, PhD GRADY AND [facility] [address] [place] [address] Assigned Behavioral Health Provider 05/19/22 Kris Vail MD [address] [place] [address] Assigned Surgical Provider 09/08/22 10/19/22 Jose Alejandro Dave PA-C [address] [address] Assigned Surgical Provider 10/20/22 02/22/23 Christie Kelly PA-C [address] [place] [address] Assigned Surgical Provider 02/23/23 05/15/23 Jose Alejandro Dave PA-C [address] [address] Assigned Surgical Provider 05/16/23 documented as of this encounter
--- OUTSIDE RECORDS SUMMARY | 2023-11-26 06:07 | XMS_ITS | Encounter Summary ---
Author Organization [place] Address [address] [place] [address] Care Team Providers Care Planer Tailer Name Role Phone Cristal Dubose MD Primary Care Provider Kiel Miles PhD Unavailable [phone] Kris Vail MD Unavailable [phone] Jose Alejandro Dave PA-C Unavailable [phone] Christie Kelly-Gideon Unavailable [phone] Jose Alejandro Dave PA-C Unavailable [phone] Encounter Details Date Type Department Care Team (Late st Contact Info) Description 01/10/2022 MyC Medical Advice Initial Department [facility] Social History Tobacco Use Types Packs/Day Years Used Date Smoking Tobacco: Never Smokeless Tobacco: Never Sex and Gender Information Value Date Recorded Sex Assigned at Female 04/21/2022 8:20 PM PLASTER APPLICATOR Gender Identity Female 04/21/2022 8:20 PM PLASTER APPLICATOR Sexual Orientation Straight 04/21/2022 8: 20 PM PLASTER APPLICATOR COVID-19 Exposure Response Date Recorded In the last 10 days, have yo u been in contact with someone who was confirmed or suspected to have Coronavirus/COVID-19? No / Unsure 01/11/2022 8:35 AM CDT documented as of this encounter Plan of Treatment Upcoming Encounters Date Type Department Care Team ([facility] Contact Info) Description 03/25/2024 9:00 AM PLASTER APPLICATOR Office Visit [facility] [place] [address] [facility] [address] [place] [phone] Jose Alejandro Dave PA-C [address] [phone] 03/25/2024 9:30 AM PLASTER APPLICATOR Office Visit [facility] [place] [address] [facility] [address] [place] [phone] 1, Sh Wl Diet, RD documented as of this encounter Visit Diagnoses Not on filedocumented in this encounter Care Teams Planer Tailer Relationship Specialty Start Date End Date Cristal Dubose MD [facility] [address] [place] [address] PCP - General Internal Medicine 10/13/18 Kiel Miles, PhD GRADY AND [employer] [address] [place] [address] Assigned Behavioral Health Provider 05/19/22 Kris Vail MD [address] [place] [address] Assigned Surgical Provider 09/08/22 10/19/22 Jose Alejandro Dave PA-C [address] [address] Assigned Surgical Provider 10/20/22 02/22/23 Christie Kelly PA-C [address] [place] [address] Assigned Surgical Provider 02/23/23 05/15/23 Jose Alejandro Dave PA-C [address] [address] Assigned Surgical Provider 05/16/23 documented as of this encounter
--- OUTSIDE RECORDS SUMMARY | 2023-11-26 06:07 | XMS_ITS | Encounter Summary ---
Author Organization [place] Address [address] [place] [address]. [place] [address] Care Team Providers Care Mophead Sewer Name Role Phone Cristal Dubose MD Primary Care Provider Kiel Miles PhD Unavailable [phone] Kris Vail MD Unavailable [phone] Jose Alejandro Dave-C Unavailable [phone] Christie Kelly-C Unavailable [phone] Jose Alejandro Dave-C Unavailable [phone] Encounter Details Date Type Department Care Team (Late st Contact Info) Description 06/28/2022 MyC Medical Advice [facility] [address] [place] [address] [phone] Chepe Arellano MD [address] [facility] 200 [place] [address] Social History Tobacco Use Types Packs/Day Years Used Date Smoking Tobacco: Never Smokeless Tobacco: Never Sex and Gender Information Value Date Recorded Sex Assigned at Female 04/21/2022 8:20 PM PHOTO BOOTH OPERATOR Gender Identity Female 04/21/2022 8:20 PM PHOTO BOOTH OPERATOR Sexual Orientation Straight 04/21/2022 8: 20 PM PHOTO BOOTH OPERATOR COVID-19 Exposure Response Date Recorded In the last 10 days, have yo u been in contact with someone who was confirmed or suspected to have Coronavirus/COVID-19? No / Unsure 06/25/2022 9:58 AM PHOTO BOOTH OPERATOR documented as of this encounter Plan of Treatment Upcoming Encounters Date Type Department Care Team (Late st Contact Info) Description 03/25/2024 9:00 AM PHOTO BOOTH OPERATOR Office Visit [facility] [place] [address] [facility] [address] [place] [phone] Jose Alejandro Dave PA-C [address] [place] [id number] 03/25/2024 9:30 AM PHOTO BOOTH OPERATOR Office Visit [facility] [address] [place] [phone] 1, Sh Wl Diet, RD documented as of this encounter Visit Diagnoses Not on filedocumented in this encounter Care Teams Mophead Sewer Relationship Specialty Start Date End Date Cristal Dubose MD [facility] [address] [place] [address] PCP - General Internal Medicine 10/13/18 Kiel Miles, PhD GRADY AND [employer] [facility] [address] [place] [address] Assigned Behavioral Health Provider 05/19/22 Kris Vail MD [address] [place] [address] Assigned Surgical Provider 09/08/22 10/19/22 Jose Alejandro Dave PA-C [address] [place] [id number] Assigned Surgical Provider 10/20/22 02/22/23 Christie Kelly PA-C [address] [place] [address] Assigned Surgical Provider 02/23/23 05/15/23 Jose Alejandro Dave PA-C [address] [place] [address] Assigned Surgical Provider 05/16/23 documented as of this encounter
--- OUTSIDE RECORDS SUMMARY | 2023-11-26 06:07 | XMS_ITS | Encounter Summary ---
Author Organization [place] Address [address] [place] [address] Care Team Providers Care Vending Machine Servicer Name Role Phone Cristal Dubose MD Primary Care Provider Kiel Miles PhD Unavailable [phone] Jose Alejandro Dave-C Unavailable [phone] Christie Kelly-C Unavailable [phone] Jose Alejandro Dave-Gideon Unavailable [phone] Encounter Details Date Type Department Care Team (Late st Contact Info) Description 01/24/2023 MyC Medical Advice [facility] [address] [place] [phone] Alesia Oreilly, SALES AUDIT CLERK Social History Tobacco Use Types Packs/Day Years Used Date Smoking Tobacco: Never Smokeless Tobacco: Never Alcohol Use Standard Drinks/Week Comments Yes 0 (1 standard drink = 0.6 oz pur e alcohol) occassional Adolescent Education Answer Date Record ed Getting School Help Needed Not on file 01/18 Sex and Gender Information Value Date Recorded Sex Assigned at Female 04/21/2022 8:20 PM QUALITY CONTROL COORDINATOR Gender Identity Female 04/21/2022 8:20 PM QUALITY CONTROL COORDINATOR Sexual Orientation Straight 04/21/2022 8: 20 PM QUALITY CONTROL COORDINATOR documented as of this encounter Plan of Treatment Upcoming Encounters Date Type Department Care Team (Late st Contact Info) Description 03/25/2024 9:00 AM QUALITY CONTROL COORDINATOR Office Visit [facility] [place] [address] [facility] [address] [place] [phone] Jose Alejandro Dave PA-C [address] 877155 03/25/2024 9:30 AM QUALITY CONTROL COORDINATOR Office Visit [facility] [place] [address] [facility] [address] [place] [phone] 1, Sh Wl Diet, RD documented as of this encounter Visit Diagnoses Not on filedocumented in this encounter Care Teams Vending Machine Servicer Relationship Specialty Start Date End Date Cristal Dubose MD [facility] [address] [place] [address] PCP - General Internal Medicine 10/13/18 Kiel Miles, PhD GRADY AND [employer] [facility] [address] [place] [address] Assigned Behavioral Health Provider 05/19/22 Jose Alejandro Dave PA-C [address] [place] [address] Assigned Surgical Provider 10/20/22 02/22/23 Christie Kelly PA-C [address] [address] Assigned Surgical Provider 02/23/23 05/15/23 Jose Alejandro Dave PA-C [address] [place] [address] Assigned Surgical Provider 05/16/23 documented as of this encounter
--- OUTSIDE RECORDS SUMMARY | 2023-11-26 06:07 | XMS_ITS | Encounter Summary ---
Author Organization [place] Address [address] [place] [address] Care Team Providers Care Chief Estimator Name Role Phone Cristal Dubose MD Primary Care Provider Kiel Miles PhD Unavailable Christie KellyC Unavailable + [phone] Jose Alejandro Dave PA-C Unavailable [phone] Encounter Details Date Type Department Care Team (Late st Contact Info) Description 04/30/2023 MyC Medical Advice [facility] [address] [place] [address] [phone] Alesia Oreilly, LEAD HOUSEKEEPER Social History Tobacco Use Types Packs/Day Years Used Date Smoking Tobacco: Never Smokeless Tobacco: Never Alcohol Use Standard Drinks/Week Comments Yes 0 (1 standard drink = 0.6 oz pur e alcohol) occassional Adolescent Education Answer Date Record ed Getting School Help Needed Not on file 01/18 Sex and Gender Information Value Date Recorded Sex Assigned at Female 04/21/2022 8:20 PM HEAVY EQUIPMENT DIESEL MECHANIC Gender Identity Female 04/21/2022 8:20 PM HEAVY EQUIPMENT DIESEL MECHANIC Sexual Orientation Straight 04/21/2022 8: 20 PM HEAVY EQUIPMENT DIESEL MECHANIC documented as of this encounter Plan of Treatment Upcoming Encounters Date Type Department Care Team (Late Contact Info) Description 03/25/2024 9:00 AM HEAVY EQUIPMENT DIESEL MECHANIC Office Visit [facility] [address] [place] [phone] Jose Alejandro Dave PA-C [address] [place] [address] 815[address] 03/25/2024 9:30 AM HEAVY EQUIPMENT DIESEL MECHANIC Office Visit [facility] [place] 6[address] [facility] [address] [place] [phone] 1, Sh Wl Diet, RD documented as of this encounter Visit Diagnoses Not on filedocumented in this encounter Care Teams Chief Estimator Relationship Specialty Start Date End Date Cristal Dubose MD [facility] [address] [place] [address] PCP - General Internal Medicine 10/13/18 Kiel Miles, PhD GRADY AND [employer] [address] [place] [address] Assigned Behavioral Health Provider 05/19/22 Christie Kelly PA-C [address] [place] [address] Assigned Surgical Provider 02/23/23 05/15/23 Jose Alejandro Dave PA-C [address] [address] Assigned Surgical Provider 05/16/23 documented as of this encounter
--- OUTSIDE RECORDS SUMMARY | 2023-11-26 06:07 | XMS_ITS | Encounter Summary ---
Author Organization [place] Address [address] [place] [address]. [place] [address] Care Team Providers Care Validation Consultant Name Role Phone Cristal Dubose MD Primary Care Provider Kiel Miles PhD Unavailable [phone] Kris Vail MD Unavailable [phone] Jose Alejandro Dave PA-C Unavailable [phone] Christie Kelly PA-C Unavailable [phone] Jose Alejandro Dave PA-C Unavailable [phone] Encounter Details Date Type Department Care Team (Late st Contact Info) Description 08/22/2022 MyC Medical Advice [facility] [place] [address] [place] [phone] Marcela Perez RN [facility] [address] [place], [place] [phone] Social History Tobacco Use Types Packs/Day Years Used Date Smoking Tobacco: Never Smokeless Tobacco: Never Sex and Gender Information Value Date Recorded Sex Assigned at Female 04/21/2022 8:20 PM HEAD BUYER TOBACCO Gender Identity Female 04/21/2022 8:20 PM HEAD BUYER TOBACCO Sexual Orientation Straight 04/21/2022 8: 20 PM HEAD BUYER TOBACCO COVID-19 Exposure Response Date Recorded In the last 10 days, have yo u been in contact with someone who was confirmed or suspected to have Coronavirus/COVID-19? No / Unsure 08/22/2022 9:45 AM CDT documented as of this encounter Plan of Treatment Upcoming Encounters Date Type Department Care Team (Late st Contact Info) Description 03/25/2024 9:00 AM HEAD BUYER TOBACCO Office Visit [facility] [place] [phone] [facility] [address] [place] [phone] Jose Alejandro Dave PA-C [address] [place] [address]88[address] 03/25/2024 9:30 AM HEAD BUYER TOBACCO Office Visit [facility] [address] [place] [phone] 1, Sh Wl Diet, RD documented as of this encounter Visit Diagnoses Not on filedocumented in this encounter Care Teams Validation Consultant Relationship Specialty Start Date End Date Cristal Dubose MD [facility] [address] [place] [address] PCP - General Internal Medicine 10/13/18 Kiel Miles, PhD GRADY AND [employer] [facility] [address] [place] [address] Assigned Behavioral Health Provider 05/19/22 Kris Vail MD [address] [place] [address] Assigned Surgical Provider 09/08/22 10/19/22 Jose Alejandro Dave PA-C [address] [place] [id number] Assigned Surgical Provider 10/20/22 02/22/23 Christie Kelly PA-C [address] [place] [address] Assigned Surgical Provider 02/23/23 05/15/23 Jose Alejandro Dave PA-C [address] [address] [address] Assigned Surgical Provider 05/16/23 documented as of this encounter
--- OUTSIDE RECORDS SUMMARY | 2023-11-26 06:07 | XMS_ITS | Encounter Summary ---
Author Organization [place] Address [address] [place] [address]. [place] [address] Care Team Providers Care Taxation Economist Name Role Phone Cristal Dubose MD Primary Care Provider Kiel Miles PhD Unavailable [phone] Kris Vail MD Unavailable [phone] Jose Alejandro Dave-C Unavailable [phone] Christie Kelly-C Unavailable [phone] Jose Alejandro Dave-C Unavailable [phone] Encounter Details Date Type Department Care Team (Late st Contact Info) Description 04/23/2022 MyC Medical Advice [facility] [address] [place] [phone] Marcela Perez, EPI [facility] [address] [place] [address] [address] [place] [id number] Social History Tobacco Use Types Packs/Day Years Used Date Smoking Tobacco: Never Smokeless Tobacco: Never Sex and Gender Information Value Date Recorded Sex Assigned at Female 04/21/2022 8:20 PM FOOD SPECIALIST Gender Identity Female 04/21/2022 8:20 PM FOOD SPECIALIST Sexual Orientation Straight 04/21/2022 8: 20 PM FOOD SPECIALIST documented as of this encounter Plan of Treatment Upcoming Encounters Date Type Department Care Team (Late st Contact Info) Description 03/25/2024 9:00 AM FOOD SPECIALIST Office Visit [facility] [place] [address] [facility] [address] [place] [phone] Jose Alejandro Dave PA-C [address] [id number] 03/25/2024 9:30 AM FOOD SPECIALIST Office Visit [facility] [place] [address] [facility] [address] [place] [phone] 1, Sh Wl Diet, RD documented as of this encounter Visit Diagnoses Not on filedocumented in this encounter Care Teams Taxation Economist Relationship Specialty Start Date End Date Cristal Dubose MD [facility] [address] [place] [address] PCP - General Internal Medicine 10/13/18 Kiel Miles, PhD GRADY AND [employer] [facility] [address] [place] [id number] Assigned Behavioral Health Provider 05/19/22 Kris Vail MD [address] [place] [address] Assigned Surgical Provider 09/08/22 10/19/22 Jose Alejandro Dave PA-C [address] [place] [place] [id number] Assigned Surgical Provider 10/20/22 02/22/23 Christie Kelly PA-C [address] [place] [address] Assigned Surgical Provider 02/23/23 05/15/23 Jose Alejandro Dave PA-C [address] [address] Assigned Surgical Provider 05/16/23 documented as of this encounter
--- OUTSIDE RECORDS SUMMARY | 2023-11-26 06:07 | XMS_ITS | Encounter Summary ---
Author Organization [place] Address [facility] [place] [address] Care Team Providers Care Tire Care Manager Name Role Phone Cristal Dubose MD Primary Care Provider [phone] Kiel Miles PhD Unavailable [phone] Christie Kelly PA-C Unavailable [phone] Jose Alejandro Dave PA-C Unavailable [phone] Encounter Details Date Type Department Care Team (Late st Contact Info) Description 05/06/2023 MyC Medical Advice Initial Department [facility] Social History Tobacco Use Types Packs/Day Years Used Date Smoking Tobacco: Never Smokeless Tobacco: Never Alcohol Use Standard Drinks/Week Comments Yes 0 (1 standard drink = 0.6 oz pur e alcohol) occassional Adolescent Education Answer Date Record ed Getting School Help Needed Not on file 01/18 Sex and Gender Information Value Date Recorded Sex Assigned at Female 04/21/2022 8:20 PM SECURITY INSTALLATION SALES TECHNICIAN Gender Identity Female 04/21/2022 8:20 PM SECURITY INSTALLATION SALES TECHNICIAN Sexual Orientation Straight 04/21/2022 8: 20 PM SECURITY INSTALLATION SALES TECHNICIAN documented as of this encounter Plan of Treatment Upcoming Encounters Date Type Department Care Team (Late st Contact Info) Description 03/25/2024 9:00 AM SECURITY INSTALLATION SALES TECHNICIAN Office Visit [facility] [place] [phone] [facility] [address] [place] [phone] Jose Alejandro Dave PA-C [address] [address] 03/25/2024 9:30 AM SECURITY INSTALLATION SALES TECHNICIAN Office Visit [facility] [place] [address] [facility] [address] [place] [phone] 1, Sh Wl Diet, RD documented as of this encounter Visit Diagnoses Not on filedocumented in this encounter Care Teams Tire Care Manager Relationship Specialty Start Date End Date Cristal Dubose MD [facility] [address] [place] [address] PCP - General Internal Medicine 10/13/18 Kiel Miles, PhD GRADY AND [facility] [address] [place] [address] Assigned Behavioral Health Provider 05/19/22 Christie Kelly PA-C [address] [place] [address] Assigned Surgical Provider 02/23/23 05/15/23 Jose Alejandro Dave PA-C [address] [address] Assigned Surgical Provider 05/16/23 documented as of this encounter
--- OUTSIDE RECORDS SUMMARY | 2023-11-26 06:07 | XMS_ITS | Encounter Summary ---
Author Organization [place] Address [address] [place] [address]. [place] [address] Care Team Providers Care Journalist Name Role Phone Cristal Dubose MD Primary Care Provider [phone] Kiel Miles PhD Unavailable [phone] Christie KellyC Unavailable + [phone] Jose Alejandro Dave PA-C Unavailable [phone] Encounter Details Date Type Department Care Team (Late st Contact Info) Description 05/06/2023 MyC Medical Advice [facility] [address] [place] [phone] Renay Franklin MA Social History Tobacco Use Types Packs/Day Years Used Date Smoking Tobacco: Never Smokeless Tobacco: Never Alcohol Use Standard Drinks/Week Comments Yes 0 (1 standard drink = 0.6 oz pur e alcohol) occassional Adolescent Education Answer Date Record ed Getting School Help Needed Not on file 01/18 Sex and Gender Information Value Date Recorded Sex Assigned at Female 04/21/2022 8:20 PM HAND DECORATOR Gender Identity Female 04/21/2022 8:20 PM HAND DECORATOR Sexual Orientation Straight 04/21/2022 8: 20 PM HAND DECORATOR documented as of this encounter Plan of Treatment Upcoming Encounters Date Type Department Care Team (Late Contact Info) Description 03/25/2024 9:00 AM HAND DECORATOR Office Visit [facility] [address] [place] [phone] Jose Alejandro Dave PA-C [address] [phone] 03/25/2024 9:30 AM HAND DECORATOR Office Visit [facility] [place] [address] [facility] [address] [place] [phone] 1, Sh Wl Diet, RD documented as of this encounter Visit Diagnoses Not on filedocumented in this encounter Care Teams Journalist Relationship Specialty Start Date End Date Cristal Dubose MD [facility] [address] [place] [address] PCP - General Internal Medicine 10/13/18 Kiel Miles, PhD GRADY AND [employer] [address] [place] [address] Assigned Behavioral Health Provider 05/19/22 Christie Kelly PA-C [address] [place] [address] Assigned Surgical Provider 02/23/23 05/15/23 Jose Alejandro Dave PA-C [address] [address] Assigned Surgical Provider 05/16/23 documented as of this encounter
--- OUTSIDE RECORDS SUMMARY | 2023-11-26 06:07 | XMS_ITS | Encounter Summary ---
Author Organization [place] Address [address] [place] [address] Care Team Providers Care Fire Safety Director Name Role Phone Cristal Dubose MD Primary Care Provider Kiel Miles PhD Unavailable [phone] Jose Alejandro Dave PA-C Unavailable [phone] Encounter Details Date Type Department Care Team (Late st Contact Info) Description 10/09/2023 9:30 AM CDT Office Visit [facility] [address] [place] [phone] Bariatric surgery [...] Sex Assigned at Female 04/21/2022 8:20 PM HOSPITAL LIBRARIAN Gender Identity Female 04/21/2022 8:20 PM HOSPITAL LIBRARIAN Sexual Orientation Straight 04/21/2022 8: 20 PM HOSPITAL LIBRARIAN documented as of this encounter Patient Instructions [...] podcasts, exercise) Thanks! Farshad Dimas RD, LD [facility] documented in this encounter Progress Notes * Farshad Dimas RD, LD - 10/09/2023 9:30 AM CDT NUTRITION POST OP APPOINTMENT DATE OF VISIT: October 05, 2023 Teresa Bingham 1965 female [id number] 57 year old ASSESSMENT: REASON FOR VISIT: [...] dinner 5000 mcg Vitamin B-12 sublingual - [id number] be stopping based on labs Not getting [...] foods available at work. [facility] mother has resulted in eating [...] PATIENT: [address], LD [facility] documented in this encounter Plan of Treatment Upcoming Encounters Date Type Department Care Team (Late st Contact Info) Description 03/25/2024 9:00 AM HOSPITAL LIBRARIAN Office Visit [facility] [place] [place] [phone] Jose Alejandro Dave PA-C [address] [place] [address] [place] [address] 03/25/2024 9:30 AM HOSPITAL LIBRARIAN Office Visit [facility] [place] [address] [facility] [address] [place] [phone] 1, Sh Wl Gloria, RD documented as of this encounter Visit Diagnoses Diagnosis Bariatric surgery status- Primary 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 Overweight with body mass index (BMI) of 29 to 29.9 in adult documented in this encounter Care Teams Fire Safety Director Relationship Specialty Start Date End Date Cristal Dubose MD [facility] [address] [place] [address] PCP - General Internal Medicine 10/13/18 Kiel Miles, PhD GRADY AND [email or web address] [facility] [address] [place] [address] Assigned Behavioral Health Provider 05/19/22 Jose Alejandro Dave PA-C [address] [place] [address] Assigned Surgical Provider 05/16/23 documented as of this encounter
--- OUTSIDE RECORDS SUMMARY | 2023-11-26 06:07 | XMS_ITS | Encounter Summary ---
Author Organization [place] Address [facility] [place] [address] Care Team Providers Care Ironworker Foreman Name Role Phone Cristal Dubose MD Primary Care Provider [phone] Kiel Miles PhD Unavailable [phone] Jose Alejandro Dave PA-C Unavailable [phone] Reason for Visit * Reason Comments RECHECK Encounter Details Date Type Department Care Team (Latest Contact Info) Description 10/09/2023 9:00 AM CDT Office Visit [facility] [address] [place] [phone] Jose Alejandro Dave PA-C [address] [facility] [place] [id number] Overweight with body mass index (BMI) of [...] Sex Assigned at Female 04/21/2022 8:20 PM PICKLING TANK OPERATOR Gender Identity Female 04/21/2022 8:20 PM PICKLING TANK OPERATOR Sexual Orientation Straight 04/21/2022 8: 20 PM PICKLING TANK OPERATOR documented as of this encounter Last Filed [...] Alejandro Dave PA-C Plan: Labs ordered. Call [phone] to schedule. Continue your bariatric vitamins See [...] hour one way to work in the [employer]. Started drinking [employer] large Ice coffee in [...] periods EXERCISE: Pt is exercising working at [employer]. Does this 4 days for full days. [...] st Contact Info) Description 03/25/2024 9:00 AM PICKLING TANK OPERATOR Office Visit [facility] [place] [address] [facility] [address] [place] [phone] Jose Alejandro Dave PA-C [address] [facility] [place] [address] 03/25/2024 9:30 AM PICKLING TANK OPERATOR Office Visit [facility] [place] [address] [facility] [address] [place] [phone] 1, Sh Wl Diet, RD documented as of this encounter Results * Vitamin A (10/09/2023 10:13 AM CDT) Pathologist [facility] Vitamin A 0.66 0.30 - 1.20 mg/L 10/11/2023 7:52 AM CDT [facility] Retinol Palmitate <0.02 0.00 - 0.10 mg/L 10/11/2023 7:52 AM CDT [facility] Vitamin A Interp Normal 10/11/19 24 7:52 AM CDT [facility] Comment: This test was developed and its performance characteristics determined by [facility]. It has not been cleared or approved by the US Food and Drug Administration. This test was performed in a CLIA certified laboratory and is intended for clinical purposes. Performed By: [facility] [address] [place] [id number] Technical Instructor Course Developer: Oni Atwood MD, PhD CLIA Number: [id number] Blood STRUCTURE OF LEFT UPPER LIMB / Unknown Venipuncture / Unknown 10/09/2023 10:13 AM CDT 10/09/2023 10:13 AM CDT Jose Alejandro Dave PA-C LAB - BLOOD ORD ERABLES [facility] [address] [place] [address], [facility] [phone] * Ferritin (10/09/2023 10:13 AM CDT) Ferritin 52 11 - 328 ng/mL 10/09/2023 6:18 PM CDT [facility] Blood STRUCTURE OF LEFT UPPER LIMB / Unknown Venipuncture / Unknown 10/09/2023 10:13 AM CDT 10/09/2023 10:13 AM CDT Jose Alejandro Dave PA-C LAB - BLOOD ORD ERABLES [facility] [address] [facility][1], Room [address] [place] [address], [facility] * Iron and Iron Binding Capacity [...] PA-C LAB - BLOOD ORD ERABLES LABORATORY [facility] [address] 1[address] floor, [address] [place] [address], [facility] [phone] * Parathyroid Hormone Intact (10/09/2023 10:13 AM [...] differs from PTH assays used in other [facility] laboratories. Jose Alejandro Dave PA-C LAB - BLOOD ORD ERABLES LABORATORY [facility] [address] floor, [address] [place] [address], [facility] [phone] * Vitamin D Screen (10/09/2023 10:13 AM CDT) Vitamin D, Total (25-Hydroxy) 39 20 - 50 ng/mL 10/09/2023 6:18 PM CDT [facility] Comment:optimum levels Blood STRUCTURE OF LEFT UPPER LIMB / Unknown Venipuncture / Unknown 10/09/2023 10:13 AM CDT 10/09/2023 10:13 AM CDT [facility] - 10/09/2023 6:18 PM CDT Season, race, dietary intake, and treatment affect the concentration of 45-bfytwqv-Yqgbcfm D. Values may decrease during winter months and increase during summer months. Vitamin D determination is routinely performed by an immunoassay specific for 25 hydroxyvitamin D3. ??If an individual is on vitamin D2(ergocalciferol) supplementation, please specify 25 [place] vitamin D2 and D3 level determination by LCMSMS test VITD23. Jose Alejandro Dave PA-C LAB - BLOOD ORD ERABLES [facility] [address] [facility][1], Room [address] [place] [address], [facility] * Vitamin B12 (10/09/2023 10:13 AM CDT) Pathologist [facility] Vitamin B12 1,148 232 - 1,245 pg/mL 10/09/2023 6:18 PM CDT [facility] Blood STRUCTURE OF LEFT UPPER LIMB / Unknown Venipuncture / Unknown 10/09/2023 10:13 AM CDT 10/09/2023 10:13 AM CDT Jose Alejandro Dave PA-C LAB - BLOOD ORD ERABLES [facility] [address] [facility][1], Room [address] [place] [address] * CBC with platelets (10/09/2023 10:13 AM CDT) [facility] WBC Count 5.8 4.0 - 11.0 [...] PA-C LAB - BLOOD ORD ERABLES LABORATORY [facility] [address] 1st floor, [address] [place] [address], [facility] [phone] documented in this encounter Visit Diagnoses Diagnosis Overweight with body mass index (BMI) of 29 to 29.9 in adult- Primary Bariatric surgery status 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 documented in this encounter Care Teams Ironworker Foreman Relationship Specialty Start Date End Date Cristal Dubose MD [facility] & [address] [address] PCP - General Internal Medicine 10/13/18 Kiel Miles, PhD [facility] [employer] [facility] [address] [place] [address] Assigned Behavioral Health Provider 05/19/22 Jose Alejandro Dave PA-C [address] [place] [address] Assigned Surgical Provider 05/16/23 documented as of this encounter
--- OUTSIDE RECORDS SUMMARY | 2023-11-26 06:07 | XMS_ITS | Encounter Summary ---
Author Organization [place] Address [address] [place] [address] Care Team Providers Care Financial Planning Advisor Name Role Phone Cristal Dubose MD Primary Care Provider Kiel Miles PhD Unavailable [phone] Jose Alejandro Dave PA-C Unavailable [phone] Christie Kelly-C Unavailable [phone] Jose Alejandro Dave PA-C Unavailable [phone] Encounter Details Date Type Department Care Team (Late st Contact Info) Description 02/11/2023 MyC Medical Advice [facility] Surgical Weight Loss Clinic [address] [place] [phone] Alesia Oreilly, FREIGHT HANDLER Social History Tobacco Use Types Packs/Day Years Used Date Smoking Tobacco: Never Smokeless Tobacco: Never Alcohol Use Standard Drinks/Week Comments Yes 0 (1 standard drink = 0.6 oz pur e alcohol) occassional Adolescent Education Answer Date Record ed Getting School Help Needed Not on file 01/18 Sex and Gender Information Value Date Recorded Sex Assigned at Female 04/21/2022 8:20 PM FINAL INSPECTOR TRUCK TRAILER Gender Identity Female 04/21/2022 8:20 PM FINAL INSPECTOR TRUCK TRAILER Sexual Orientation Straight 04/21/2022 8: 20 PM FINAL INSPECTOR TRUCK TRAILER COVID-19 Exposure Response Date Recorded In the last 10 days, have yo u been in contact with someone who was confirmed or suspected to have Coronavirus/COVID-19? No / Unsure 01/28/2023 10:22 AM CDT documented as of this encounter Plan of Treatment Upcoming Encounters Date Type Department Care Team (Late st Contact Info) Description 03/25/2024 9:00 AM FINAL INSPECTOR TRUCK TRAILER Office Visit [facility] [place] [address] [facility] [address] [place] [phone] Jose Alejandro Dave PA-C [address] [place] [address] 03/25/2024 9:30 AM FINAL INSPECTOR TRUCK TRAILER Office Visit [facility] [place] [address] [facility] [address] [place] [phone] 1, Sh Wl Diet, RD documented as of this encounter Visit Diagnoses Not on filedocumented in this encounter Care Teams Financial Planning Advisor Relationship Specialty Start Date End Date Cristal Dubose MD [facility] [address] [place] [address] PCP - General Internal Medicine 10/13/18 Kiel Miles, PhD [facility] [address] [place] [address] Assigned Behavioral Health Provider 05/19/22 Jose Alejandro Dave PA-C [address] [place] [address] Assigned Surgical Provider 10/20/22 02/22/23 Christie Kelly PA-C [address] [place] [address] Assigned Surgical Provider 02/23/23 05/15/23 Jose Alejandro Dave PA-C [address] [place] [address] Assigned Surgical Provider 05/16/23 documented as of this encounter
--- OUTSIDE RECORDS SUMMARY | 2023-11-26 06:07 | XMS_ITS | Encounter Summary ---
Author Organization [place] Address Counts include 234 beds at the [facility]0 [facility] [address] Care Team Providers Care Food Production Machine Operator Name Role Phone Cristal Dubose MD Primary Care Provider Kiel Miles PhD Unavailable [phone] Kris Vail MD Unavailable [phone] Jose Alejandro Dave PA-C Unavailable [phone] Christie Kelly PA-C Unavailable [phone] Jose Alejandro Dave PA-C Unavailable [phone] Encounter Details Date Type Department Care Team (Late st Contact Info) Description 04/22/2022 MyC Medical Advice Initial Department [facility] Social History Tobacco Use Types Packs/Day Years Used Date Smoking Tobacco: Never Smokeless Tobacco: Never Sex and Gender Information Value Date Recorded Sex Assigned at Female 04/21/2022 8:20 PM INDOOR PLANT TECHNICIAN Gender Identity Female 04/21/2022 8:20 PM INDOOR PLANT TECHNICIAN Sexual Orientation Straight 04/21/2022 8: 20 PM INDOOR PLANT TECHNICIAN documented as of this encounter Plan of Treatment Upcoming Encounters Date Type Department Care Team (Late st Contact Info) Description 03/25/2024 9:00 AM INDOOR PLANT TECHNICIAN Office Visit [facility] Weight Loss [facility] [place] [address] [facility] [address] [place] [phone] Jose Alejandro Dave PA-C [address] [facility] [address] 03/25/2024 9:30 AM INDOOR PLANT TECHNICIAN Office Visit [facility] [place] [address] [facility] [address] [place] [phone] 1, Sh Wl Diet, RD documented as of this encounter Visit Diagnoses Not on filedocumented in this encounter Care Teams Food Production Machine Operator Relationship Specialty Start Date End Date Cristal Dubose MD [facility] [address] [place] [address] PCP - General Internal Medicine 10/13/18 Kiel Miles, PhD [facility] [employer] [address] [place] [address] Assigned Behavioral Health Provider 05/19/22 Kris Vail MD [address] [place] [address] Assigned Surgical Provider 09/08/22 10/19/22 Jose Alejandro Dave PA-C [address] [place] [address] Assigned Surgical Provider 10/20/22 02/22/23 Christie Kelly PA-C [address] [place] [id number] Assigned Surgical Provider 02/23/23 05/15/23 Jose Alejandro Dave PA-C [address] [place] [address] Assigned Surgical Provider 05/16/23 documented as of this encounter
--- OUTSIDE RECORDS SUMMARY | 2023-11-26 06:07 | XMS_ITS | Encounter Summary ---
Author Organization [place] Address [address] [place] [address]. [place] [address] Care Team Providers Care National Investigative Producer Name Role Phone Cristal Dubose MD Primary Care Provider [phone] Kiel Miles PhD Unavailable [phone] Kris Vail MD Unavailable [phone] Jose Alejandro Dave-C Unavailable [phone] Christie Kelly-C Unavailable [phone] Jose Alejandro Dave-Gideon Unavailable [phone] Encounter Details Date Type Department Care Team (Late st Contact Info) Description 09/24/2022 MyC Medical Advice [facility] Surgical Weight Loss Clinic [address] [place] [phone] Anali Rosales RN Social History Tobacco Use Types Packs/Day Years Used Date Smoking Tobacco: Never Smokeless Tobacco: Never Sex and Gender Information Value Date Recorded Sex Assigned at Female 04/21/2022 8:20 PM MAGAZINE EDITOR Gender Identity Female 04/21/2022 8:20 PM MAGAZINE EDITOR Sexual Orientation Straight 04/21/2022 8: 20 PM MAGAZINE EDITOR COVID-19 Exposure Response Date Recorded In the last 10 days, have yo u been in contact with someone who was confirmed or suspected to have Coronavirus/COVID-19? Unable to assess 09/27/2022 12:00 PM CDT documented as of this encounter Plan of Treatment Upcoming Encounters Date Type Department Care Team (Late st Contact Info) Description 03/25/2024 9:00 AM MAGAZINE EDITOR Office Visit [facility] Surgical Weight Loss Clinic [place] [phone] [facility] [address] [place] [phone] Jose Alejandro Dave PA-C [address] [place] [id number] 03/25/2024 9:30 AM MAGAZINE EDITOR Office Visit [facility] [place] [phone] [facility] [address] [place] [phone] 1, Sh Wl Diet, RD documented as of this encounter Visit Diagnoses Not on filedocumented in this encounter Care Teams National Investigative Producer Relationship Specialty Start Date End Date Cristal Dubose MD [facility] [address] [place] [address] PCP - General Internal Medicine 10/13/18 Kiel Miles, PhD [facility] [employer] [facility] [address] [place] [address] Assigned Behavioral Health Provider 05/19/22 Kris Vail MD [address] [place] [address] Assigned Surgical Provider 09/08/22 10/19/22 Jose Alejandro Dave PA-C [address], [place] [address] Assigned Surgical Provider 10/20/22 02/22/23 Christie Kelly PA-C [address] [place] [address] Assigned Surgical Provider 02/23/23 05/15/23 Jose Alejandro Dave PA-C [address] [place] [address] Assigned Surgical Provider 05/16/23 documented as of this encounter
--- OUTSIDE RECORDS SUMMARY | 2023-11-26 06:07 | XMS_ITS | Encounter Summary ---
Author Organization [place] Address [address] [place] [address] Care Team Providers Care Bakery Team Leader Name Role Phone Cristal Dubose MD Primary Care Provider Kiel Miles PhD Unavailable [phone] Jose Alejandro Dave PA-C Unavailable [phone] Christie Kelly-C Unavailable [phone] Jose Alejandro Dave PA-C Unavailable [phone] Encounter Details Date Type Department Care Team (Late st Contact Info) Description 02/15/2023 MyC Medical Advice [facility] Surgical Weight Loss Clinic [address] [place] [phone] Alesia Oreilly, FERRULER Social History Tobacco Use Types Packs/Day Years Used Date Smoking Tobacco: Never Smokeless Tobacco: Never Alcohol Use Standard Drinks/Week Comments Yes 0 (1 standard drink = 0.6 oz pur e alcohol) occassional Adolescent Education Answer Date Record ed Getting School Help Needed Not on file 01/18 Sex and Gender Information Value Date Recorded Sex Assigned at Female 04/21/2022 8:20 PM MULE DEVELOPER Gender Identity Female 04/21/2022 8:20 PM MULE DEVELOPER Sexual Orientation Straight 04/21/2022 8: 20 PM MULE DEVELOPER COVID-19 Exposure Response Date Recorded In the last 10 days, have yo u been in contact with someone who was confirmed or suspected to have Coronavirus/COVID-19? No / Unsure 01/28/2023 10:22 AM CDT documented as of this encounter Plan of Treatment Upcoming Encounters Date Type Department Care Team (Late st Contact Info) Description 03/25/2024 9:00 AM MULE DEVELOPER Office Visit [facility] Surgical Weight Loss Clinic [place] [address] [facility] [address] [place] [phone] Jose Alejandro Dave PA-C [address] [place] [id number] 03/25/2024 9:30 AM MULE DEVELOPER Office Visit [facility] Surgical Weight Loss Clinic [place] [phone] [facility] [address] [place] [phone] 1, Sh Wl Diet, RD documented as of this encounter Visit Diagnoses Not on filedocumented in this encounter Care Teams Bakery Team Leader Relationship Specialty Start Date End Date Cristal Dubose MD [facility] [address] [place] [address] PCP - General Internal Medicine 10/13/18 Kiel Miles, PhD [employer] [facility] [address] [place] [address] Assigned Behavioral Health Provider 05/19/22 Jose Alejandro Dave PA-C [address] [place] [address] Assigned Surgical Provider 10/20/22 02/22/23 Christie Kelly PA-C [address] [place] [address] Assigned Surgical Provider 02/23/23 05/15/23 Jose Alejandro Dave PA-C [address] [place] [address] [address] Assigned Surgical Provider 05/16/23 documented as of this encounter
--- OUTSIDE RECORDS SUMMARY | 2023-11-26 06:07 | XMS_ITS | Encounter Summary ---
Author Organization [place] Address [address] [place] [address]. [place] [address] Care Team Providers Care Autopsy Pathologist Name Role Phone Cristal Dubose MD Primary Care Provider [phone] Kiel Miles PhD Unavailable [phone] Kris Vail MD Unavailable [phone] Jose Alejandro Dave-C Unavailable [phone] Christie Kelly-C Unavailable [phone] Jose Alejandro Dave-C Unavailable [phone] Encounter Details Date Type Department Care Team (Late st Contact Info) Description 04/23/2022 MyC Medical Advice [facility] Surgical Weight Loss Clinic [address] [place] [phone] Marcela Perez, EPI [facility] [address] [place] [address] [address] [place] [id number] Social History Tobacco Use Types Packs/Day Years Used Date Smoking Tobacco: Never Smokeless Tobacco: Never Sex and Gender Information Value Date Recorded Sex Assigned at Female 04/21/2022 8:20 PM ASSISTANT Gender Identity Female 04/21/2022 8:20 PM ASSISTANT Sexual Orientation Straight 04/21/2022 8: 20 PM ASSISTANT documented as of this encounter Plan of Treatment Upcoming Encounters Date Type Department Care Team (Late st Contact Info) Description 03/25/2024 9:00 AM ASSISTANT Office Visit [facility] [place] [address] [facility] [address] [place] [phone] Jose Alejandro Dave PA-C [address] [place] [id number] 03/25/2024 9:30 AM ASSISTANT Office Visit [facility] Loss [facility] [place] [address] [facility] [address] [place] [phone] 1, Sh Wl Diet, RD documented as of this encounter Visit Diagnoses Not on filedocumented in this encounter Care Teams Autopsy Pathologist Relationship Specialty Start Date End Date Cristal Dubose MD [facility] [address] [place] [address] PCP - General Internal Medicine 10/13/18 Kiel Miles, PhD [facility] [employer] [facility] [address] [place] [address] Assigned Behavioral Health Provider 05/19/22 Kris Vail MD [address] [place] [address] Assigned Surgical Provider 09/08/22 10/19/22 Jose Alejandro Dave PA-C [address] [place] [address] Assigned Surgical Provider 10/20/22 02/22/23 Christie Kelly PA-C [address] [place] [address] Assigned Surgical Provider 02/23/23 05/15/23 Jose Alejandro Dave PA-C [address] [place] [address] [address] Assigned Surgical Provider 05/16/23 documented as of this encounter
--- OUTSIDE RECORDS SUMMARY | 2023-11-26 06:07 | XMS_ITS | Encounter Summary ---
Author Organization [place] Address [address] [place] [address]. [place] [address] Care Team Providers Care Quality Rep Name Role Phone Cristal Dubose MD Primary Care Provider Kiel Miles PhD Unavailable [phone] Kris Vail MD Unavailable [phone] Jose Alejandro Dave-C Unavailable [phone] Christie Kelly-C Unavailable [phone] Jose Alejandro Dave-C Unavailable [phone] Encounter Details Date Type Department Care Team (Late st Contact Info) Description 06/13/2022 MyC Medical Advice [facility] Weight Loss Clinic [address] [place] [phone] Marcela Perez, EPI [facility] [address] [place] [address] [address] [place] [id number] Social History Tobacco Use Types Packs/Day Years Used Date Smoking Tobacco: Never Smokeless Tobacco: Never Sex and Gender Information Value Date Recorded Sex Assigned at Female 04/21/2022 8:20 PM CAR AUDIO INSTALLER Gender Identity Female 04/21/2022 8:20 PM CAR AUDIO INSTALLER Sexual Orientation Straight 04/21/2022 8: 20 PM CAR AUDIO INSTALLER documented as of this encounter Plan of Treatment Upcoming Encounters Date Type Department Care Team (Late st Contact Info) Description 03/25/2024 9:00 AM CAR AUDIO INSTALLER Office Visit [facility] Loss Clinic [place] [address] [facility] [address] [place] [phone] Jose Alejandro Dave PA-C [address] [address] [id number] 03/25/2024 9:30 AM CAR AUDIO INSTALLER Office Visit [facility] [place] [address] [facility] [address] [place] [phone] 1, Sh Wl Diet, RD documented as of this encounter Visit Diagnoses Not on filedocumented in this encounter Care Teams Quality Rep Relationship Specialty Start Date End Date Cristal Dubose MD [facility] [address] [place] [address] PCP - General Internal Medicine 10/13/18 Kiel Miles, PhD [facility] [employer] [facility] [address] [place] [address] Assigned Behavioral Health Provider 05/19/22 Kris Vail MD [address] [place] [address] Assigned Surgical Provider 09/08/22 10/19/22 Jose Alejandro Dave PA-C [address] [place] [address] Assigned Surgical Provider 10/20/22 02/22/23 Christie Kelly PA-C [address] [place] [id number] Assigned Surgical Provider 02/23/23 05/15/23 Jose Alejandro Dave PA-C [address] [place] [address] [address] Assigned Surgical Provider 05/16/23 documented as of this encounter
--- OUTSIDE RECORDS SUMMARY | 2023-11-26 06:07 | XMS_ITS | Encounter Summary ---
Author Organization [facility] Address [address] [place] [id number] Care Team Providers Care Top Flavor Attendant Name Role Phone Cristal Dubose MD Primary Care Provider Kiel Miles PhD Unavailable [phone] Jose Alejandro Dave PA-C Unavailable [phone] Encounter Details Date Type Department Care Team (Late st Contact Info) Description 10/08/2023 MyC Medical Advice [facility] [address] [place] [phone] Alesia Oreilly, RN MDS COORDINATOR Social History Tobacco Use Types Packs/Day Years Used Date Smoking Tobacco: Never Smokeless Tobacco: Never Alcohol Use Standard Drinks/Week Comments Yes 0 (1 standard drink = 0.6 oz pur e alcohol) occassional Adolescent Education Answer Date Record ed Getting School Help Needed Not on file 01/18 Sex and Gender Information Value Date Recorded Sex Assigned at Female 04/21/2022 8:20 PM [employer] Gender Identity Female 04/21/2022 8:20 PM [employer] Sexual Orientation Straight 04/21/2022 8: 20 PM [employer] documented as of this encounter Plan of Treatment Upcoming Encounters Date Type Department Care Team (Late st Contact Info) Description 03/25/2024 9:00 AM [employer] Office Visit [facility] [place] [id number] [facility] [address] [place] [phone] Jose Alejandro Dave PA-C [address] [place] [id number] 03/25/2024 9:30 AM [employer] Office Visit [facility] [place] [address] [facility] [address] [place] [phone] 1, Sh Keeley Castro, LEIGHANN documented as of this encounter Visit Diagnoses Not on filedocumented in this encounter Care Teams Top Flavor Attendant Relationship Specialty Start Date End Date Cristal Dubose MD [facility] [address] [place] [address] PCP - General Internal Medicine 10/13/18 Kiel Miles, PhD [facility] [address] [place] [address] Assigned Behavioral Health Provider 05/19/22 Jose Alejandro Dave PA-C [address] [id number] Assigned Surgical Provider 05/16/23 documented as of this encounter
[2023-11-26] MEDS: ETHYL CHLORIDE 1 APPLICATION 1 APPLIC TOPICAL (07:20)
[2023-11-26] MEDS: BUPIVACAINE 0.5% 30 ML 5 ML INJECTION (07:20)
--- NOTE | 2023-11-26 07:52 | P.ORPRC_ITS ---
Procedure Note Date of procedure: 11/26/23 Procedure: Preop diagnosis: Left upper extremity carpal tunnel syndrome Postop diagnosis: Left upper extremity carpal tunnel syndrome Procedure: Left upper extremity carpal tunnel release Anesthesia: Local Surgeon: Obi Lucas MD credit control assistant: KRISTINA Gardner EBL: 0 mL Complications: None Specimens: None Drains: None Indications: The patient has a history of left upper extremity carpal tunnel syndrome symptoms. Despite appropriate nonoperative management consisting of nighttime bracing and occupational therapy they continue to have symptoms. Operative intervention was recommended. The risks, benefits alternatives and expected outcomes were discussed in detail. These included but were not limited to: Infection, bleeding, injury to blood vessel or nerve, venous thromboembolism. All questions were answered to their satisfaction. The patient was placed supine on the operating room table. Local anesthesia was established with 0.5% Marcaine with epinephrine and 2% lidocaine with epinephrine. The hand was prepped and draped in usual sterile fashion. A longitudinal incision was made centered over the radial border of the ring finger at the base of the palm. Subcutaneous dissection was sharply taken through the palmar fascia to the transverse carpal ligament. The ligament was divided in line with the incision. Proximal and distal dissection was carried with tenotomy and Metzenbaum scissors for a wide decompression of the carpal tunnel. The flexor tendons tenosynovium was significantly thickened and the nerve was adherent to the tendons. It was carefully dissected off the tendons and a tenosynovectomy was performed. The wound was closed with a 3-0 nylon. A bulky dry dressing was applied, sponge and needle counts were correct x 2. The patient tolerated the procedure well, there were no apparent complications. They were sent to same day surgery in satisfactory condition. Plan: Use of the hand as tolerates. Discontinue the intraoperative dressing on postoperative day 3 and may get the wound wet as tolerates. Follow up in the office in 2 weeks for a wound check and suture removal.
== END 2023-11-26 08:14 | disposition home or self-care (01) ==
LOC: OR 06:05
PROVIDERS: PCP Internal Medicine; Visit Provider Orthopaedic Surgery
PROC: (CPT 64721; principal; 2023-11-26 07:15)
DX: G56.02 Carpal tunnel syndrome, left upper limb (principal)
CPT/HCPCS: 64721; J0665

== ENCOUNTER 2025-02-17 08:14 | Outpatient (CLI) | payer OTHER, SELFPAY | END 2025-02-17 08:15 | disposition home or self-care (01) | LOC: NFLDREF 02-19 03:12 | PROVIDERS: PCP Internal Medicine; Referring Provider Internal Medicine; Visit Provider Internal Medicine | DX: E78.5 Hyperlipidemia, unspecified (principal); I10 Essential (primary) hypertension | CPT/HCPCS: 80053; 80061 ==